=== PATIENT | female | born 1950 | race Caucasian/White ===

== ENCOUNTER 2017-11-16 10:50 | Outpatient (CLI) | payer MEDICARE | END 2017-11-16 10:51 | disposition home or self-care (01) | LOC: BICRAD 10:50 | PROVIDERS: ATTEND Internal Medicine Rheumatology | DX: M79.672 Pain in left foot (principal) ==

== ENCOUNTER 2017-12-18 10:49 | Outpatient (CLI) | payer MEDICARE | END 2017-12-18 10:50 | disposition home or self-care (01) | LOC: BICMAMMO 10:49 | PROVIDERS: ATTEND Obstetrics & Gynecology | DX: Z12.31 Encounter for screening mammogram for malignant neoplasm of breast (principal); R92.1 Mammographic calcification found on diagnostic imaging of breast | CPT/HCPCS: 77063; 77067 ==

== ENCOUNTER 2019-01-02 09:39 | Emergency (ER) | payer MEDICARE ==
[2019-01-02] MEDS ORDERED: Ondansetron PF 4 MG/2 ML Vial ONE (10:38)
[2019-01-02 10:59] LABS: #Eosinphils 0.1 thou/uL (0.0-0.7); #Lymphocytes 0.7 thou/uL (1.20-3.40); #Monocytes 0.3 thou/uL (0.11-0.59); #Neutrophils 2.1 thou/uL (1.40-6.50); %Basophils 0.7 % (0.0-1.0); %Eosinophils 2.5 % (0.0-10.0); %Lymphocytes 21.4 % (21.0-51.0); %Monocytes 9.9 % (0.0-10.0); %Neutrophils 65.5 % (42.0-75.0); Hemoglobin 12.1 g/dL (12.0-16.0); Mean Corpuscular HGB CONC 34.1 g/dL (32.0-36.0); Mean Platelet Volume 7.8 fL (7.4-10.4); Platelet Count 81 thou/uL (130-400); Red Blood Cell (RBC) Count 3.44 mill/uL (4.20-5.40); White Blood Cell (WBC) Count 3.3 thou/uL (4.8-10.8)
[2019-01-02 11:04] LABS: ALT (SGPT) 186 U/L (8-55); AST (SGOT) 377 U/L (5-34); Acetaminophen Less than 6.0 mcg/mL (10.0-30.0); Albumin 3.9 g/dL (3.4-4.8); Alcohol 77 mg/dL (Less than 10); Alkaline Phosphatase 157 U/L (40-150); Anion Gap 18 mmol/L (10-20); BUN (Urea Nitrogen) 9 mg/dL (9.8-20.1); Bilirubin, Total 0.9 mg/dL (0.2-1.2); Calc. Creatinine Clearance 0 mL/min (70-130); Calcium 9.3 mg/dL (7.8-10.44); Carbon Dioxide 24 mmol/L (23-31); Chloride 96 mmol/L (98-107); Estimated GFR-MDRD 56; Globulin 3.3 g/dL (2.4-3.5); Glucose 117 mg/dL (80-115); Potassium 3.9 mmol/L (3.5-5.1); Protein, Total 7.2 g/dL (6.0-8.3); Salicylate Less than 8.0 mg/dL (15.0-30.0); Sodium 134 mmol/L (136-145)
[2019-01-02 11:53] LABS: Bilirubin Negative (Negative); Blood, Urine Small (Negative); Clarity CLOUDY (Clear); Glucose, Urine (Dipstick) Negative (Negative); Leukocyte Large (Negative); Nitrite Positive (Negative); Protein, Urine (Dipstick) Trace mg/dL (Neg-Trace); Specific Gravity, Urine 1.014 (1.002-1.036); Urobilinogen 0.2 mg/dL (0.2-1.0); pH, Urine 5.5 (5.0-9.0)
[2019-01-02 11:56] LABS: Bacteria/HPF 2+ HPF (None Seen); Squamous Epithelial 0-3 HPF (0-3)
[2019-01-02 12:04] LABS: Pathc Cast-AUWi Flag 3.12 (0-2.49)
[2019-01-02 12:12] LABS: Hyaline Casts/LPF 0-3 HYALINE CAST LPF (0-3 Hyaline); RBC/HPF 0-3 HPF (0-3); Yeast-All Forms Rare HPF (None Seen)
[2019-01-02] MEDS ORDERED: cefTRIAXone\\ROCEPHIN 1 GM VIAL ONE (12:30)
--- NOTE | 2019-01-04 21:37 | EKG ---
Test Reason : Blood Pressure : / mmHG Vent. Rate : 078 BPM Atrial Rate : 078 BPM P-R Int : 178 ms QRS Dur : 072 ms QT Int : 384 ms P-R-T Axes : 054 -11 004 degrees QTc Int : 437 ms Normal sinus rhythm T wave abnormality, consider anterior ischemia T wave inversion V1-V3 Abnormal ECG Confirmed by JOSHUA HOU ([id number]), slot editor KRISHNA OBRIEN ([id number]) on 01/04/2019 9:37:06 PM Referred By: Confirmed By:JOSHUA HOU
== END 2019-01-02 13:25 | disposition home or self-care (01) ==
LOC: ERS 09:39
DX: R11.2 Nausea with vomiting, unspecified (principal); R53.1 Weakness; N39.0 Urinary tract infection, site not specified; I10 Essential (primary) hypertension; F32.9 Major depressive disorder, single episode, unspecified; Z79.899 Other long term (current) drug therapy; Z79.82 Long term (current) use of aspirin
CPT/HCPCS: 36415; 80053; 80307; 81003; 81015; 83880; 84484; 85025; 87077; 87086; 87186; 93005; 96361; 96365; 96375; J0696; J2405

== ENCOUNTER 2019-01-12 09:19 | Emergency (ER) | payer MEDICARE ==
[2019-01-12 10:08] LABS: Hemoglobin 11.3 g/dL (12.0-16.0); Mean Corpuscular HGB CONC 33.3 g/dL (32.0-36.0); Mean Platelet Volume 7.7 fL (7.4-10.4); Platelet Count 164 thou/uL (130-400); RBC Distribution Width 12.6 % (11.5-14.5); Red Blood Cell (RBC) Count 3.22 mill/uL (4.20-5.40); White Blood Cell (WBC) Count 2.8 thou/uL (4.8-10.8)
[2019-01-12 10:25] LABS: ALT (SGPT) 140 U/L (8-55); AST (SGOT) 271 U/L (5-34); Acetaminophen Less than 6.0 mcg/mL (10.0-30.0); Albumin 3.7 g/dL (3.4-4.8); Alcohol Less than 10 mg/dL (Less than 10); Alkaline Phosphatase 147 U/L (40-150); Anion Gap 16 mmol/L (10-20); BUN (Urea Nitrogen) 5 mg/dL (9.8-20.1); Bilirubin, Total 0.8 mg/dL (0.2-1.2); CK (CPK) 52 U/L (29-168); Calc. Creatinine Clearance 0 mL/min (70-130); Calcium 9.2 mg/dL (7.8-10.44); Carbon Dioxide 27 mmol/L (23-31); Chloride 98 mmol/L (98-107); Estimated GFR-MDRD 51; Glucose 115 mg/dL (80-115); Potassium 4.7 mmol/L (3.5-5.1); Protein, Total 6.7 g/dL (6.0-8.3); Salicylate Less than 8.0 mg/dL (15.0-30.0); Sodium 136 mmol/L (136-145)
[2019-01-12] MEDS ORDERED: Ondansetron ODT 4 MG TAB ONE (10:27)
[2019-01-12 10:41] LABS: Band 5 % (5-11); Eosinophils 10 % (0-10); Lymphocytes 36 % (21-51); MDiff Complete? YES; Macrocytosis SLIGHT = 6-15 cells (100X) (0-5/hpf); Monocytes 7 % (0-10); Neutrophil 34 % (42-75); Nucleated RBC 1 % (0); Platelet Morphology Comment Appears Adequate; Polychromasia SLIGHT = 2-3 cells (100X) (0-2/hpf); Reactive Lymphocytes 6 % (0-10)
[2019-01-12 11:51] LABS: Bilirubin Negative (Negative); Blood, Urine Large (Negative); Glucose, Urine (Dipstick) Negative (Negative); Leukocyte Moderate (Negative); Nitrite Negative (Negative); Protein, Urine (Dipstick) Negative (Neg-Trace); Specific Gravity, Urine 1.015 (1.005-1.030); Urobilinogen 0.2 mg/dL (0.2-1.0)
[2019-01-12 11:54] LABS: Clarity Cloudy (Clear)
[2019-01-12 12:00] LABS: Amphetamine Not Detected (NotDetected); Barbiturates Screen Not Detected (NotDetected); Benzodiazepine Screen Not Detected (NotDetected); Cocaine Metabolite Screen Not Detected (NotDetected); Medtox Control Line Valid? VALID (VALID); Medtox Reader # READER 4; Methadone Not Detected (NotDetected); Methamphetamine Not Detected (NotDetected); Opiate Screen Not Detected (NotDetected); Oxycodone Screen Not Detected (NotDetected); Phencyclidine (PCP) Not Detected (NotDetected); THC/Cannabinoid Screen Not Detected (NotDetected); Tricyclic Screen Not Detected (NotDetected)
[2019-01-12 12:06] LABS: Bacteria/HPF 2+ HPF (None Seen); Transitional Epithelial 0-3 HPF (0-3); Yeast-All Forms None Seen HPF (None Seen)
--- NOTE | 2019-01-12 13:04 | CT ---
FCT abdomen noncontrast CT pelvis noncontrast: (Urolithiasis protocol) DATE: 01/12/2019 HISTORY: 68-year-old female with hematuria, nausea, vomiting, UTI and diarrhea, with dysuria. COMPARISON: None available TECHNIQUE: IV injection of iodinated contrast media: None Oral contrast media: None FINDINGS: Other than for urolithiasis, the lack of IV and oral contrast limits the evaluation. The liver is diffusely very low in attenuation representing fatty liver. Liver is enlarged. No abdomi nal aortic aneurysm. Within the limitations of a noncontrast scan, no major pathology identified invo lving pancreas, adrenals, spleen, left kidney. Right total hip replacement arthroplasty metallic hard carrillo causes streak artifact, obscuring portions of the intrapelvic contents, including some of the bl adder. No mural thickening of the urinary bladder identified. No calculus identified in the kidneys, ureters, or urinary bladder, although small calculi could be missed in the pelvis due to the streak a rtifact. No hydronephrosis. 2 cm round exophytic mass protruding from upper pole cortex of right kidn ey with density of 8 Hounsfield units, representing cyst. No small bowel dilation. Appendix not ident ified. No signs of colonic diverticulitis. No pneumoperitoneum or ascites. Suture lines and calcifica tion at the vaginal cuff. IMPRESSION: 1) no urolithiasis or obstructive uropathy. 2) mild hepatomegaly and severe hepatic steatosis. 3) status post total right hip replacement arthroplasty. 4) status post hysterectomy.
--- NOTE | 2019-01-18 15:29 | EKG ---
Test Reason : N/V Blood Pressure : / mmHG Vent. Rate : 080 BPM Atrial Rate : 080 BPM P-R Int : 192 ms QRS Dur : 066 ms QT Int : 380 ms P-R-T Axes : 049 -11 010 degrees QTc Int : 438 ms Normal sinus rhythm Minimal voltage criteria for LVH, may be normal variant T wave inversions V1-V3 seen on old EKG of 01/02/2019 Confirmed by LARRY SELF ([id number]), associate entertainment editor ROSA DASILVA ([id number]) on 01/18/2019 3:29:02 PM Referred By: CLAIR Confirmed By:LARRY SELF
== END 2019-01-12 13:26 | disposition home or self-care (01) ==
LOC: ERS 09:19
DX: N39.0 Urinary tract infection, site not specified (principal); I10 Essential (primary) hypertension; F32.9 Major depressive disorder, single episode, unspecified; Z79.899 Other long term (current) drug therapy; Z79.82 Long term (current) use of aspirin
CPT/HCPCS: 36415; 74176; 80053; 80306; 80307; 81003; 81015; 82550; 83605; 84484; 85025; 87077; 87086; 87186; 93005; 96360; Q0162

== ENCOUNTER 2019-03-19 09:46 | Outpatient (CLI) | payer MEDICARE ==
--- NOTE | 2019-03-19 10:15 | MMO ---
Bilateral MAMMO Bilat Screen [facility]. CLINICAL HISTORY: Patient is 68 years old and is seen for screening. The patient has no family history of breast cancer. The patient has no personal history of cancer. VIEWS: The views performed were: bilateral craniocaudal with tomosynthesis and bilateral mediolateral oblique with tomosynthesis. FILMS COMPARED: The present examination has been compared to prior imaging studies performed at [facility] on 12/18/2017, at [facility] on 05/31/2015, and at [facility] on 06/21/2012 and 07/07/2013. MAMMOGRAM FINDINGS: There are scattered fibroglandular densities. There are vascular calcifications seen in both breasts. There are no suspicious masses, suspicious calcifications, or new areas of architectural distortion. IMPRESSION: A ROUTINE FOLLOW-UP MAMMOGRAM IN 1 YEAR IS RECOMMENDED. THE RESULTS OF THIS EXAM WERE SENT TO THE PATIENT. ACR BI-RADS Category 2 - Benign finding MAMMOGRAPHY NOTE: 1. A negative mammogram report should not delay a biopsy if a dominant of clinically suspicious mass is present. 2. Approximately 10% to 15% of breast cancers are not detected by mammography. 3. Adenosis and dense breasts may obscure an underlying neoplasm.
== END 2019-03-19 09:47 | disposition home or self-care (01) ==
LOC: BICMAMMO 09:46
PROVIDERS: ATTEND Family Medicine
DX: Z12.31 Encounter for screening mammogram for malignant neoplasm of breast (principal)
CPT/HCPCS: 77063; 77067

== ENCOUNTER 2020-02-02 10:17 | Inpatient (IN) | payer MEDICARE ==
[~2020-02-02 10:17] MED LIST: Iopamidol-370 76% 500 ML 1 ML ONE
[2020-02-02 11:06] LABS: #Eosinphils 0.1 thou/uL (0.0-0.7); #Lymphocytes 1.4 thou/uL (1.20-3.40); #Monocytes 0.9 thou/uL (0.11-0.59); #Neutrophils 13.6 thou/uL (1.40-6.50); %Basophils 0.3 % (0.0-1.0); %Eosinophils 0.7 % (0.0-10.0); %Lymphocytes 8.6 % (21.0-51.0); %Monocytes 5.6 % (0.0-10.0); %Neutrophils 84.8 % (42.0-75.0); Hemoglobin 11.2 g/dL (12.0-16.0); Mean Corpuscular HGB CONC 32.2 g/dL (32.0-36.0); Mean Corpuscular Hemoglobin 35.1 pg (27.0-31.0); Mean Platelet Volume 9.1 fL (7.4-10.4); Platelet Count 258 thou/uL (130-400); RBC Distribution Width 14.7 % (11.5-14.5)
--- NOTE | 2020-02-02 11:06 | RAD ---
Exam: Chest one view HISTORY:Potential. Weakness. Comparison: 04/23/2018 FINDINGS: Cardiac silhouette: Normal Aorta: Unremarkable Pulmonary vessels: Normal Costophrenic angles: Clear LUNGS: Diminished lung volumes, likely due to a poor inspiratory effort. Partial opacification of the right hemidiaphragm. Right lower lobe atelectasis or infiltrate cannot be entirely excluded. Pneumothorax: None Osseous abnormalities: None IMPRESSION: 1. Diminished lung volumes, likely due to a poor inspiratory effort. Partial obscuration of the right hemidiaphragm due to atelectasis or infiltrate.
[2020-02-02 11:30] LABS: ALT (SGPT) 34 U/L (8-55); AST (SGOT) 165 U/L (5-34); Albumin 3.3 g/dL (3.4-4.8); Alkaline Phosphatase 191 U/L (40-110); Anion Gap 16 mmol/L (10-20); BUN (Urea Nitrogen) 32 mg/dL (9.8-20.1); Bilirubin, Total 6.7 mg/dL (0.2-1.2); CK (CPK) 22 U/L (29-168); Calc. Creatinine Clearance 0 mL/min (70-130); Calcium 9.1 mg/dL (7.8-10.44); Carbon Dioxide 26 mmol/L (23-31); Chloride 96 mmol/L (98-107); Estimated GFR-MDRD 36; Globulin 3.2 g/dL (2.4-3.5); Glucose 135 mg/dL (80-115); Lipase 48 U/L (8-78); Potassium 3.7 mmol/L (3.5-5.1); Protein, Total 6.5 g/dL (6.0-8.3); Sodium 134 mmol/L (136-145)
[2020-02-02 12:32] LABS: Bilirubin 1+ (Negative); Blood, Urine Negative (Negative); Clarity Clear (Clear); Glucose, Urine (Dipstick) Normal (Negative); Leukocyte Negative Leu/uL (Negative); Nitrite Negative (Negative); Protein, Urine (Dipstick) 10 mg/dL (Neg-Trace)
[2020-02-02 13:56] LABS: Lactic Acid 1.4 mmol/L (0.5-2.2)
[2020-02-02] MEDS ORDERED: Multivitamins, Adult 10 ML, Thiamine HCl 100 MG, Folic Acid 1 MG in Dextrose 5 %-0.45 %... IV ONE (16:00)
[2020-02-02] MEDS ORDERED: Docusate 100 MG CAP PO PRN (16:09)
[2020-02-02] MEDS ORDERED: Guaifenesin DM 100-10/5 ML UDCUP PO PRN (16:09)
[2020-02-02] MEDS ORDERED: Senokot S 8.6-50 MG TAB PO PRN (16:09)
[2020-02-02] MEDS ORDERED: Ondansetron PF 4 MG/2 ML Vial IVP PRN (16:09)
[2020-02-02] MEDS ORDERED: Bisacodyl 10 MG SUPP PR PRN (16:09)
--- NOTE | 2020-02-02 16:40 | CT ---
CT BRAIN WITHOUT CONTRAST: History: Altered mental status, weakness. Comparison: None FINDINGS: There are changes of cortical atrophy and chronic small vessel disease. The ventricular size is appro priate and the basilar cisterns patent. No evidence of acute infarct, hemorrhage, midline shift, or extraaxial fluid collections seen. The radha ny calvarium is intact. There is mucosal disease in the paranasal sinuses. IMPRESSION: No CT evidence of acute intracranial process. POS: [facility]
--- NOTE | 2020-02-02 17:12 | CT ---
CT ABDOMEN AND PELVIS WITH IV CONTRAST: Date: 02-02-2020 Provided Clinical History: Weakness, urinary tract infection. FINDINGS: Comparison 01-12-2019. There is partially visualized right pleural fluid, small in degree. Diffuse fatty infiltration of the liver with sparring. Simple appearing right renal cysts. The solid abdominal organs demonstrate an otherwise unremarkable CT appearance. There is a small amount of free fluid present within the left pericolic gutter, which appears simple. There is no inflammatory fat stranding, bowel obstruction, or free intraperitoneal air apparent. The regional major vascular structures appear unremarkable with the exception of occasional vascular calcification. Evaluate of the pelvis is limited due to beam hardening artifact related to changes of right hip arth roplasty. The osseous structures demonstrate no concerning lytic or blastic lesions. IMPRESSION: 1. Small amount of free intraperitoneal fluid in the left pericolic gutter. The etiology and signific ance of which are uncertain. 2. Small amount of right pleural fluid. 3. Prominent fatty infiltration of the liver. POS: N[facility]
[2020-02-02 17:28] VITALS: BMI 22.1
[2020-02-02 17:30] LABS: Acetaminophen Less than 6.0 mcg/mL (10.0-30.0); Alcohol Less than 10 mg/dL (Less than 10); Iron 50 ug/dL (50-170); Iron Binding Capacity, Total 111 mcg/dL (265-497); Salicylate Less than 8.0 mg/dL (15.0-30.0)
--- NOTE | 2020-02-02 17:45 | HP ---
REASON FOR ADMISSION: Painless jaundice, generalized weakness, weight loss. HISTORY OF PRESENTING ILLNESS: The patient gives history of feeling progressively weak from last 3 weeks. She says she has been losing strength and it is very hard for her to get out of bed. This got worse to the point that she could not get up and brush this morning. Finally, she called EMS and was transported here to ER. No abdominal pain or nausea. Last bowel movement was yesterday morning which was semi-solid. No diarrhea as such. No complaints of fever, cough, or expectoration. No exposure to coronavirus. The patient does not recall having started any new medications. PAST MEDICAL AND SURGICAL HISTORY: History of hypertension, dyslipidemia, hypothyroidism, osteoporosis, vitamin D deficiency, prior history of alcohol abuse with rehabilitation done in the past, bladder sling surgery, hysterectomy with bilateral salpingo-oophorectomy, right knee surgery, left shoulder replacement, hip replacement, GERD, history of frequent UTI, history of CHF with diastolic dysfunction, depression, prior colonoscopy. CURRENT MEDICATIONS: Please note, the patient does not recall any of her medications. Per prior records, the patient is on; 1. Levothyroxine 75 mcg p.o. daily. 2. Omeprazole 40 mg p.o. daily. 3. Lisinopril 5 mg p.o. daily. 4. Folic acid 1 mg p.o. daily. 5. Vitamin D3 of 5000 units p.o. daily. 6. Folic acid 1 mg daily. 7. Aspirin 81 mg p.o. daily. 8. Mirtazapine 15 mg p.o. daily. 9. Singulair 10 mg p.o. daily. 10. Carvedilol 12.5 mg twice daily. ALLERGIES: NO KNOWN DRUG ALLERGIES. PERSONAL HISTORY: The patient states she quit drinking alcohol. Last drink was at [place] last year. Does not abuse drugs or smoke. She is currently a resident of [facility]. FAMILY HISTORY: Mother at the age of 89. She had an [place]. Father of natural causes in his 80s. CODE STATUS: Full. Power of collections attorney is her daughter, Ms. Sewell. REVIEW OF SYSTEMS: CONSTITUTIONAL: Negative for weight loss or gain, ability to conduct usual activities. SKIN: Negative for rash, itching. EYES: Negative for double vision, pain. ENT/MOUTH: Negative for nose bleeding, neck stiffness, pain, tenderness. CARDIOVASCULAR: Negative for palpitations, dyspnea on exertion, orthopnea. RESPIRATORY: Negative for shortness of breath, wheezing, cough, hemoptysis, fever or night sweats. GASTROINTESTINAL: Negative for poor appetite, abdominal pain, heartburn, nausea, vomiting, constipation, or diarrhea. GENITOURINARY: Negative for urgency, frequency, dysuria, nocturia. MUSCULOSKELETAL: Negative for pain, swelling. NEUROLOGIC/PSYCHIATRIC: Negative for anxiety, depression. ALLERGY/IMMUNOLOGIC: Negative for skin rash, bleeding tendency. PHYSICAL EXAMINATION: GENERAL: The patient is a 69-year-old female, who is currently not in any acute distress. VITAL SIGNS: Blood pressure 116/66, pulse 64 per minute, respiratory rate 18 per minute, temperature 97.7 degrees Fahrenheit, saturating 100% on room air. NECK: Supple. No elevated JVD. HEENT: Eyes; extraocular muscles intact. Pupils reacting to light. Oral cavity, mucous membranes are dry. No exudates or congestion. CARDIOVASCULAR SYSTEM: S1-S2 heard. Regular rhythm. RESPIRATORY SYSTEM: Air entry 1+ bilateral. No rales or rhonchi. ABDOMEN: Soft. Bowel sounds heard. No tenderness, rigidity, or guarding. EXTREMITIES: No peripheral edema or calf tenderness. VASCULAR SYSTEM: Peripheral pulses 1+ bilateral. No ischemic ulcerations or gangrene. CENTRAL NERVOUS SYSTEM: No gross focal deficits noted. The patient is alert and awake, but is not fully oriented. PSYCHIATRIC SYSTEM: No obvious hallucinations or delusions. LABORATORY DATA AND IMAGING STUDIES: Chest x-ray done shows partial obscuration of right hemidiaphragm. No acute changes seen. CT brain, official results are pending. White count of 16, H and H 11 and 34, platelet count 258, MCV is 109 with 84% neutrophils. BUN 32, creatinine 1.4, serum bicarb 26, serum glucose 135, total bilirubin is 6.7. AST 165, ALT 34, alkaline phosphatase 191. BNP 362. Albumin is 3.3. Lipase is 48. EKG done shows sinus rhythm at 63 beats per minute. There is T-wave inversion seen in V1 and V2. Poor R-wave progression is seen in the lateral leads. CLINICAL IMPRESSION AND PLAN: The patient will be admitted to medical floor for painless jaundice with progressive weakness. A CT of the abdomen and pelvis with and without contrast will be obtained. She will be gently hydrated with normal saline at 180 mL/hour. We will continue aspirin, Coreg, Synthroid, lisinopril, Singulair, Protonix, and trazodone as before. The patient has been on sulfasalazine in the past and it is unclear. We will obtain GI consultation with Dr. Goldberg, who is on-call and likely her GI specialist. We will obtain a liver panel in the morning to see comparison. She had normal total bilirubin in the past per prior medical records on [facility]. She has had prior colonoscopies done, the last one had a tubular adenoma. Job ID: [id number]
[2020-02-02 17:49] LABS: CEA, Serum 5.52 ng/mL (< or = 5.0)
[2020-02-02 17:51] LABS: HBCM Index 0.07 S/CO (0-0.79); HBSAg Index 0.25 S/CO (0-0.99); Hep A IgM AB Non-Reactive (NonReactive); Hep A IgM S/CO 0.12 S/CO (0-0.79); Hep B Surf Ag Non-Reactive S/CO (NonReactive); Hep C IgG Ab Non-Reactive (NonReactive); Hepatitis B Core IgM Abs Non-Reactive (NonReactive)
[2020-02-02 18:30] LABS: Ferritin 3437.06 ng/mL (10-291)
[2020-02-02 18:52] LABS: Iron 51 ug/dL (50-170); Iron Binding Capacity, Total 110 mcg/dL (265-497)
[2020-02-02] MEDS: Sodium Chloride 0.9% 1,000 ML IV SCH (19:06)
[2020-02-02] MEDS: Carvedilol 25 MG TAB PO SCH (20:08)
[2020-02-02] MEDS: Montelukast Sodium 10 mg Tablet PO SCH (20:09)
[2020-02-02] MEDS: traZODone HCl 50 MG TAB PO SCH (20:09)
--- NOTE | 2020-02-02 20:11 | CON ---
DATE OF CONSULTATION: 02/02/2020 REASON FOR CONSULTATION: Abnormal LFTs. CONSULTING PROVIDER: Jan Alonso MD HISTORY OF PRESENT ILLNESS: The patient is a 69-year-old female with past medical history of hypertension, hyperlipidemia, hypothyroidism, congestive heart failure, depression, recurrent urinary tract infections (with recent treatment), and adenomatous polyps of the colon, presenting with complaints of weakness and recent falls. She states that since 11/2019 she had been having frequent urinary tract infections, requiring multiple bouts of antibiotics in order to treat these particular infection. However, since then, she has been noticing progressively worsening weakening during that time, especially over the last 3 weeks. With this increased weakness, she characterized that as difficulty getting out of bed, rising from a sitting position to a standing position and even fell this morning. With the incidence of the fall this morning, she fell, but was unable to rise to a sitting or standing position and eventually called for help, although it is unclear how long she was down for with this fall this morning and then prompted EMS to take the patient to [facility] for further evaluation. While in the hospital, she was noted to have significantly elevated LFTs in addition to scleral icterus concerning for liver dysfunction and is currently undergoing evaluation. On further questioning the patient, she also states that she has been having decreased appetite over the last 2 to 3 months as well, but denies any significant weight loss (although the patient cannot quantify with lack of a scale at home). She also complains of diarrhea, but upon further questioning, states that she has approximately one semi-solid bowel movement every other day, that is Mohave 4 in terms of consistency with no difficulty with defecation. Her current diet is fairly fiber poor with her current diet consisting primarily of meza, cereal, biscuits, and milk. She currently denies any nausea, vomiting, fevers, chills, hematemesis, hematochezia, melena, abdominal pain, dysphagia, odynophagia, early satiety, or constipation. Of note, the patient states that her last episode of alcohol consumption was around New Year's of this year. She also states that she stops taking sulfasalazine approximately 1 month ago per her public service representative's recommendations. However, she was recently treated for urinary tract infection with nitrofurantoin. REVIEW OF SYSTEMS: A 10-category review of systems was obtained with all responses negative except for the pertinent positives as listed in HPI. PAST MEDICAL HISTORY: As per HPI. PAST SURGICAL HISTORY: 1. Right knee surgery. 2. Left shoulder replacement. 3. Right hip arthroplasty. FAMILY HISTORY: Denies any GI malignancies. SOCIAL HISTORY: Denies any tobacco, alcohol, or illicit drug use. Last consumption of alcohol was in 09/2019. OUTPATIENT MEDICATIONS: Reviewed. ALLERGIES: NO KNOWN DRUG ALLERGIES. PHYSICAL EXAMINATION: VITAL SIGNS: Temperature 98, pulse 63, blood pressure 94/60, respiratory rate 18, and saturating 98% on room air. GENERAL: The patient was lying in bed, in no acute distress. Alert and oriented x4. HEENT: Normocephalic and atraumatic. NECK: Supple. No JVD noted. Positive scleral icterus. CARDIOVASCULAR: Regular rate and rhythm with no discernable murmurs, gallops, or rubs. RESPIRATORY: Clear to auscultation bilaterally with no discernable wheezes or rales, although poor inspiratory effort. ABDOMEN: Normoactive bowel sounds. Soft, nontender, and nondistended. EXTREMITIES: No cyanosis, clubbing, or edema. [id number] cachectic limbs noted. LABORATORY DATA: CBC with a white blood cell count of 16, hemoglobin 11.2, hematocrit 34.9, and platelets 258. Chemistry with a sodium of 134, potassium 3.7, chloride 96, CO2 of 26, BUN 32, creatinine 1.45, and glucose 135. AST 165, ALT 34, alkaline phosphatase 191, total bilirubin 6.7, and albumin 3.3. BNP 362, lipase 48, and ammonia 23. MCV on her CBC was 109 with an RDW of 14.7. Liver indices obtained on 01/20/2020 showed an iron of 139, ferritin of 5071, and a TIBC of 131. IMAGING DATA: Chest x-ray was obtained on 02/02/2020, which showed diminished lung volumes, consistent with poor inspiratory effort. However, there was partial opacification of the right hemidiaphragm, concerning for possible atelectasis versus an infiltrate. CT of the brain was obtained on 02/02/2020, which showed no evidence of acute intracranial process. CT of the abdomen and pelvis was also obtained on 02/02/2020, which showed a partially visualized right pleural fluid, which was small in terms of volume, diffuse fatty infiltration of the liver with sparing was also seen, but no mention of any discrete liver masses. There was a small amount of free fluid present within the left pericolic gutter, but no evidence of inflammatory, fat stranding, bowel obstruction, or free intraperitoneal air. Right hip artifact changes related to a right hip arthroplasty made it difficult to evaluate the pelvis. ASSESSMENT AND PLAN: The patient is a 69-year-old female with past medical history of hypertension, hyperlipidemia, hypothyroidism, congestive heart failure, recurrent urinary tract infections, depression, and adenomatous polyps of the colon, presenting with global/generalized weakness, recent frequent urinary tract infection status post treatment, and elevated liver function tests on this admission. Abnormal liver function tests: The patient is presenting with a recent history of recurrent urinary tract infections, for which she has been treated with multiple antibiotic regimens. Most recently, the patient was placed on nitrofurantoin for urinary tract infection and was close to completion of this antibiotic course. The patient was also noted to have taken sulfasalazine on a chronic/long-term basis related primarily to osteoarthritis and was prescribed by her public service representative, although this medication was discontinued approximately 1 month ago. At this time, evaluation of her liver function tests reveal primarily a cholestatic-type pattern as evidenced by her significantly elevated bilirubin and modestly elevated alkaline phosphatase when compared to AST and ALT, and why her BNP is elevated, congestive hepatopathy is less likely to be manifesting itself with this pattern of abnormal liver function tests. Recent iron indices also showed that the patient had a mildly low iron, but normal as well as a normal TIBC, indicative more of an anemia of chronic disease when related to her current hemoglobin and hematocrit. She did have a ferritin of over 5000, which could be an acute phase reactant in this clinical picture related to a possible infection. Current differential could include an infectious etiology (bacterial versus viral), fatty infiltration of the liver (less likely to generate a significant hyperbilirubinemia), medication induced (especially with nitrofurantoin), alcohol ingestion, other underlying liver disease and/or gastrointestinal neoplasm (less likely given CT findings). RECOMMENDATIONS: 1. Would continue to trend her LFTs and INR daily to monitor liver function and resolution. 2. Agree with obtaining a drug of abuse screen including alcohol, which could potentially contribute to her current pattern. 3. We will follow up on serum AFP and CEA for possible evaluation of neoplastic process (although these are poor screening test for malignant neoplasm within the GI tract). 4. I would recommend a full liver workup given that she has had elevated LFTs in the past. 5. Would avoid any potentially hepatotoxic medications. 6. Agree with more conservative management with IV fluid administration. We will continue to follow. Please call with any questions. Job ID: [id number]
[2020-02-02] MEDS ORDERED: Mirtazapine 30 MG TAB PO SCH (21:00)
[2020-02-03] MEDS: Sodium Chloride 0.9% 1,000 ML IV SCH ×2 (04:00→17:22)
[2020-02-03 05:27] LABS: #Basophils 0.1 thou/uL (0.0-0.2); #Eosinphils 0.2 thou/uL (0.0-0.7); #Lymphocytes 1.6 thou/uL (1.20-3.40); #Monocytes 0.9 thou/uL (0.11-0.59); #Neutrophils 10.6 thou/uL (1.40-6.50); %Basophils 0.4 % (0.0-1.0); %Eosinophils 1.2 % (0.0-10.0); %Lymphocytes 11.7 % (21.0-51.0); %Monocytes 6.6 % (0.0-10.0); %Neutrophils 80.1 % (42.0-75.0); Hemoglobin 9.3 g/dL (12.0-16.0); Mean Corpuscular HGB CONC 31.9 g/dL (32.0-36.0); Mean Corpuscular Hemoglobin 34.3 pg (27.0-31.0); Mean Platelet Volume 8.4 fL (7.4-10.4); Platelet Count 212 thou/uL (130-400); RBC Distribution Width 14.5 % (11.5-14.5); Red Blood Cell (RBC) Count 2.71 mill/uL (4.20-5.40); White Blood Cell (WBC) Count 13.2 thou/uL (4.8-10.8)
[2020-02-03 05:50] LABS: ALT (SGPT) 28 U/L (8-55); AST (SGOT) 129 U/L (5-34); Albumin 2.6 g/dL (3.4-4.8); Alkaline Phosphatase 158 U/L (40-110); Anion Gap 11 mmol/L (10-20); BUN (Urea Nitrogen) 24 mg/dL (9.8-20.1); Calc. Creatinine Clearance 45 mL/min (70-130); Calcium 8.2 mg/dL (7.8-10.44); Carbon Dioxide 25 mmol/L (23-31); Chloride 100 mmol/L (98-107); Estimated GFR-MDRD 47; Glucose 93 mg/dL (80-115); Potassium 3.3 mmol/L (3.5-5.1); Protein, Total 5.6 g/dL (6.0-8.3); Sodium 133 mmol/L (136-145)
[2020-02-03] MEDS ORDERED: Levothyroxine Sodium 88 MCG TAB PO SCH (06:00)
[2020-02-03 06:09] LABS: Free T4 (Free Thyroxine) 0.46 ng/dL (0.70-1.48); Thyroid Stimulating Hormone 49.3064 uIU/mL (0.35-4.94)
[2020-02-03 07:58] LABS: Amphetamine Not Detected (NotDetected); Barbiturates Screen Not Detected (NotDetected); Benzodiazepine Screen Not Detected (NotDetected); Cocaine Metabolite Screen Not Detected (NotDetected); Medtox Control Line Valid? VALID (VALID); Medtox Reader # READER 4; Methadone Not Detected (NotDetected); Methamphetamine Not Detected (NotDetected); Opiate Screen Not Detected (NotDetected); Oxycodone Screen Not Detected (NotDetected); Phencyclidine (PCP) Not Detected (NotDetected); THC/Cannabinoid Screen Not Detected (NotDetected); Tricyclic Screen Not Detected (NotDetected)
[2020-02-03] MEDS: Aspirin 81 mg Enteric Coated Tablet PO SCH (08:42)
[2020-02-03] MEDS: Cyanocobalamin (Vitamin B-12) 1,000 MCG TAB PO SCH (08:42)
[2020-02-03] MEDS: Estradiol 1 MG TAB PO SCH (08:43)
[2020-02-03] MEDS: Multivit, Therapeutic 1 TAB PO SCH (08:43)
[2020-02-03] MEDS: Folic Acid 1 MG TAB PO SCH (08:43)
[2020-02-03] MEDS: Enoxaparin Sodium 40 MG/0.4 ML SYRINGE SC SCH (08:43)
[2020-02-03] MEDS: Carvedilol 25 MG TAB PO SCH (08:47)
[2020-02-03] MEDS ORDERED: Lisinopril 5 MG TAB PO SCH (09:00)
[2020-02-03] MEDS ORDERED: Sodium Chloride 0.9% 500 ML IVPB SCH (10:00)
--- NOTE | 2020-02-03 12:10 | PDOC.HOSPP ---
- Subjective Encounter Date: 02/03/20 Encounter Time: 08:00 Subjective: no abd pain, itching or sob or dizziness had low BP this am, got 500ml bolus saline is eating well - Objective Vital Signs & Weight: Vital Signs (12 hours) Temp Pulse Resp BP Pulse Ox 02/03/20 11:02 97.7 F 62 18 84/53 L 96 02/03/20 08:00 94 L 02/03/20 07:58 98.0 F 74 16 100/55 L 94 L 02/03/20 04:00 98.4 F 71 20 97/61 95 Weight Weight 136 lb 12.8 oz I&O: 02/02/20 02/03/20 02/04/20 06:59 06:59 06:59 Intake Total 1300 Balance 1300 Result Diagrams: 02/03/20 05:17 02/03/20 05:17 Hospitalist ROS - Medication Medications: Active Medications Generic Name Dose Route Start Last Admin Trade Name Freq PRN Reason Stop Dose Admin Aspirin 81 mg 02/03/20 09:00 02/03/20 08:42 Ecotrin PO 81 mg DAILY MICHAEL Administration Cyanocobalamin 2,500 mcg 02/03/20 09:00 02/03/20 08:42 Vitamin B-12 PO 2,500 mcg DAILY MICHAEL Administration Docusate Sodium 100 mg 02/02/20 16:09 02/02/20 20:09 Colace PO 100 mg BID PRN Administration Constipation Enoxaparin Sodium 40 mg 02/03/20 09:00 02/03/20 08:43 Lovenox SC 40 mg 0900 MICHAEL Administration Estradiol 1 mg 02/03/20 09:00 02/03/20 08:43 Estrace PO 1 mg DAILY MICHAEL Administration Folic Acid 1 mg 02/03/20 09:00 02/03/20 08:43 Folvite PO 1 mg DAILY MICHAEL Administration Sodium Chloride 1,000 mls @ 80 mls/hr 02/02/20 16:15 02/03/20 04:00 Normal Saline 0.9% IV 1,000 mls .[id number] MICHAEL Administration Montelukast Sodium 10 mg 02/02/20 21:00 02/02/20 20:09 Singulair PO 10 mg QPM MICHAEL Administration Multivitamins 1 tab 02/03/20 09:00 02/03/20 08:43 Theragran PO 1 tab DAILY MICHAEL Administration Pantoprazole Sodium 40 mg 02/03/20 09:00 02/03/20 08:43 Protonix PO 40 mg DAILY MICHAEL Administration Trazodone HCl 50 mg 02/02/20 21:00 02/02/20 20:09 Desyrel PO 50 mg HS MICHAEL Administration - Exam General Appearance: awake alert Eye: PERRL, scleral icterus ENT: no oropharyngeal lesions, moist mucosa Neck: supple, no JVD Heart: RRR, no murmur Respiratory: no wheezes, no rales Gastrointestinal: soft, non-tender, non-distended, normal bowel sounds Extremities: no cyanosis, no edema Neurological: cranial nerve grossly intact, no focal deficits Psychiatric: normal affect, A&O x 3 Hosp A/P (1) Jaundice Code(s): R17 - UNSPECIFIED JAUNDICE Status: Acute (2) Hypotension Status: Acute Qualifiers: Hypotension type: unspecified hypotension type Qualified Code(s): I95.9 - Hypotension, unspecified (3) FABRIZIO (acute kidney injury) Code(s): N17.9 - ACUTE KIDNEY FAILURE, UNSPECIFIED Status: Resolved (4) Dehydration Code(s): E86.0 - DEHYDRATION Status: Acute (5) Physical deconditioning Code(s): R53.81 - OTHER MALAISE Status: Acute (6) Hypertension Code(s): I10 - ESSENTIAL (PRIMARY) HYPERTENSION Status: Chronic Qualifiers: Hypertension type: essential hypertension Qualified Code(s): I10 - Essential (primary) hypertension (7) Hypothyroidism Code(s): E03.9 - HYPOTHYROIDISM, UNSPECIFIED Status: Chronic Qualifiers: Hypothyroidism type: unspecified Qualified Code(s): E03.9 - Hypothyroidism , unspecified - Plan increase synthroid to 112mcg/day, is known to be noncompliant on meds per family sbp usually runs around 98-110 going back to 2016 on VTM echo for ef and lv funtion blood cs x2 prelim is -ve, not on antibiotics renal function almost at baseline t.bili around 5mg PT to mobilize as tolerated, she got dizzy today due to low BP will f/u continue asp, low dose coreg, singulaire, iv fluids, trazodone and protonix
--- NOTE | 2020-02-03 12:29 | PRG ---
DATE OF SERVICE: 02/03/2020 SUBJECTIVE: The patient feels better this morning. She denies having any abdominal pain or pain elsewhere. She tolerated dinner well and breakfast well this morning without any nausea or vomiting. OBJECTIVE: VITAL SIGNS: Temperature is 97.7, blood pressure 84/53, pulse of 62. GENERAL: She is alert, frail, elderly woman, but in no distress. HEENT: Exam shows icteric sclerae bilaterally. Oropharynx is clear and moist. CV: Shows normal S1 and S2. Regular rate and rhythm. CHEST: Shows breath sounds. No rales or rhonchi. ABDOMEN: Soft. Mildly protuberant, but no distention or tympany. There is no palpable mass or organomegaly. She has active bowel sounds. EXTREMITIES: Exam shows no edema. LABORATORY DATA: Creatinine is 1.15, potassium 3.3. Globulin 33, bilirubin is 5.0, alkaline phosphatase 158, AST 129, ALT of 28. Serum ferritin 3437, serum iron 51, TIBC 110. Her folic acid is 17.2. Vitamin B12 is over 2000. Hemoglobin 9.3, MCV of 108. Hepatitis A, B, and C panel negative, and toxicology screen negative. ASSESSMENT: 1. Abnormal liver profile with elevation in bilirubin, AST, and alkaline phosphatase, all decreasing. CT scan showed only fatty infiltration of the liver without any focal lesion. The etiology is most likely from nitrofurantoin given for her urinary tract infection. Other liver workup is still pending. While hemolysis is unlikely, we will check haptoglobin given elevation of bilirubin and AST with normal ALT. 2. Macrocytic anemia. No evidence of iron deficiency component. Suspect from sulfasalazine for her arthritis that was discontinued last month. RECOMMENDATIONS: 1. We will check haptoglobin, although hemolysis appears to be unlikely. 2. No other GI tests at this point. We will continue to follow her LFT trend. 3. I anticipate that it will continue to normalize. Job ID: [id number]
[2020-02-03] MEDS: Carvedilol 3.125 MG TAB PO SCH (17:22)
[2020-02-03] MEDS: Montelukast Sodium 10 mg Tablet PO SCH (21:06)
[2020-02-03] MEDS: traZODone HCl 50 MG TAB PO SCH (21:06)
[2020-02-04] MEDS: Sodium Chloride 0.9% 1,000 ML IV SCH ×2 (06:02→18:33)
[2020-02-04] MEDS: Levothyroxine Sodium 112 MCG TAB PO SCH (06:02)
[2020-02-04 06:26] LABS: ALT (SGPT) 24 U/L (8-55); AST (SGOT) 116 U/L (5-34); Albumin 2.2 g/dL (3.4-4.8); Alkaline Phosphatase 130 U/L (40-110); Anion Gap 9 mmol/L (10-20); BUN (Urea Nitrogen) 18 mg/dL (9.8-20.1); Bilirubin, Total 3.4 mg/dL (0.2-1.2); Calc. Creatinine Clearance 53 mL/min (70-130); Calcium 7.9 mg/dL (7.8-10.44); Carbon Dioxide 24 mmol/L (23-31); Chloride 107 mmol/L (98-107); Estimated GFR-MDRD 57; Globulin 2.8 g/dL (2.4-3.5); Glucose 84 mg/dL (80-115); Potassium 3.3 mmol/L (3.5-5.1); Sodium 137 mmol/L (136-145)
[2020-02-04] MEDS: Cyanocobalamin (Vitamin B-12) 1,000 MCG TAB PO SCH (08:07)
[2020-02-04] MEDS: Folic Acid 1 MG TAB PO SCH (08:07)
[2020-02-04] MEDS: Carvedilol 3.125 MG TAB PO SCH ×2 (08:07→17:00)
[2020-02-04] MEDS: Aspirin 81 mg Enteric Coated Tablet PO SCH (08:07)
[2020-02-04] MEDS: Enoxaparin Sodium 40 MG/0.4 ML SYRINGE SC SCH (08:09)
[2020-02-04] MEDS: Multivit, Therapeutic 1 TAB PO SCH (08:10)
[2020-02-04] MEDS: Estradiol 1 MG TAB PO SCH (08:29)
--- NOTE | 2020-02-04 13:04 | PDOC.HOSPP ---
- Subjective Encounter Date: 02/04/20 Encounter Time: 11:15 Subjective: no abd pain or nausea feels better no sob or dizziness - Objective Vital Signs & Weight: Vital Signs (12 hours) Temp Pulse Resp BP Pulse Ox 02/04/20 11:48 98.1 F 63 16 97/61 96 02/04/20 08:00 94 L 02/04/20 04:00 98.7 F 67 20 94 L Weight Admit Weight 136 lb 12.8 oz Weight 136 lb 12.8 oz I&O: 02/03/20 02/04/20 02/05/20 06:59 06:59 06:59 Intake Total 1300 1880 Output Total 1 Balance 1300 1879 Result Diagrams: 02/03/20 05:17 02/04/20 05:52 Hospitalist ROS - Medication Medications: Active Medications Generic Name Dose Route Start Last Admin Trade Name Freq PRN Reason Stop Dose Admin Aspirin 81 mg 02/03/20 09:00 02/04/20 08:07 Ecotrin PO 81 mg DAILY MICHAEL Administration Carvedilol 3.125 mg 02/03/20 17:00 02/04/20 08:07 Coreg PO 3.125 mg BID-WM MICHAEL Administration Cyanocobalamin 2,500 mcg 02/03/20 09:00 02/04/20 08:07 Vitamin B-12 PO 2,500 mcg DAILY MICHAEL Administration Docusate Sodium 100 mg 02/02/20 16:09 02/02/20 20:09 Colace PO 100 mg BID PRN Administration Constipation Enoxaparin Sodium 40 mg 02/03/20 09:00 02/04/20 08:09 Lovenox SC 40 mg 0900 MICHAEL Administration Estradiol 1 mg 02/03/20 09:00 02/04/20 08:29 Estrace PO 1 mg DAILY MICHAEL Administration Folic Acid 1 mg 02/03/20 09:00 02/04/20 08:07 Folvite PO 1 mg DAILY MICHAEL Administration Sodium Chloride 1,000 mls @ 80 mls/hr 02/02/20 16:15 02/04/20 06:02 Normal Saline 0.9% IV 1,000 mls .[id number] MICHAEL Administration Levothyroxine Sodium 112 mcg 02/04/20 06:00 02/04/20 06:02 Synthroid PO 112 mcg 0600 MICHAEL Administration Montelukast Sodium 10 mg 02/02/20 21:00 02/03/20 21:06 Singulair PO 10 mg QPM MICHAEL Administration Multivitamins 1 tab 02/03/20 09:00 02/04/20 08:10 Theragran PO 1 tab DAILY MICHAEL Administration Pantoprazole Sodium 40 mg 02/03/20 09:00 02/04/20 08:09 Protonix PO 40 mg DAILY MICHAEL Administration Sodium Chloride 10 ml 02/03/20 21:00 02/04/20 09:20 Flush - Normal Saline IVF Not Given Q12HR MICHAEL Trazodone HCl 50 mg 02/02/20 21:00 02/03/20 21:06 Desyrel PO 50 mg HS MICHAEL Administration - Exam General Appearance: awake alert Eye: PERRL, scleral icterus ENT: no oropharyngeal lesions, moist mucosa Neck: supple, no JVD Heart: RRR, no murmur Respiratory: no wheezes, no rales Gastrointestinal: soft, non-tender, non-distended, normal bowel sounds, no guarding, no rigidity Extremities: no cyanosis, no edema Neurological: cranial nerve grossly intact, no focal deficits Hosp A/P (1) Jaundice Code(s): R17 - UNSPECIFIED JAUNDICE Status: Acute (2) Hypotension Status: Resolved Qualifiers: Hypotension type: unspecified hypotension type Qualified Code(s): I95.9 - Hypotension, unspecified (3) FABRIZIO (acute kidney injury) Code(s): N17.9 - ACUTE KIDNEY FAILURE, UNSPECIFIED Status: Resolved (4) Dehydration Code(s): E86.0 - DEHYDRATION Status: Resolved (5) Physical deconditioning Code(s): R53.81 - OTHER MALAISE Status: Acute (6) Hypertension Code(s): I10 - ESSENTIAL (PRIMARY) HYPERTENSION Status: Chronic Qualifiers: Hypertension type: essential hypertension Qualified Code(s): I10 - Essential (primary) hypertension (7) Hypothyroidism Code(s): E03.9 - HYPOTHYROIDISM, UNSPECIFIED Status: Chronic Qualifiers: Hypothyroidism type: unspecified Qualified Code(s): E03.9 - Hypothyroidism , unspecified - Plan continue synthroid at 112mcg/day, is known to be noncompliant on meds per family sbp usually runs around 98-110 going back to 2016 on [facility] [employer] echo for ef and lv funtion blood cs x2 is -ve, not on antibiotics renal function almost at baseline t.bili around 3mg PT to mobilize as tolerated, BP has improved will f/u continue asp, low dose coreg, singulaire, iv fluids, trazodone and protonix
--- NOTE | 2020-02-04 14:24 | EKG ---
Test Reason : Blood Pressure : / mmHG Vent. Rate : 063 BPM Atrial Rate : 063 BPM P-R Int : 184 ms QRS Dur : 066 ms QT Int : 466 ms P-R-T Axes : 050 -14 008 degrees QTc Int : 476 ms Normal sinus rhythm Prolonged QT Abnormal ECG Confirmed by JAMSHID ADAMS, JAMISON ([id number]), mapping editor KRISHNA OBRIEN ([id number]) on 02/04/2020 2:23:29 PM Referred By: Confirmed By:JAMISON BREEN MD
[2020-02-04] MEDS: Montelukast Sodium 10 mg Tablet PO SCH (21:30)
[2020-02-04] MEDS: traZODone HCl 50 MG TAB PO SCH (21:30)
[2020-02-05] MEDS: Levothyroxine Sodium 112 MCG TAB PO SCH (05:46)
[2020-02-05 06:00] LABS: ALT (SGPT) 25 U/L (8-55); AST (SGOT) 127 U/L (5-34); Albumin 2.2 g/dL (3.4-4.8); Alkaline Phosphatase 124 U/L (40-110); Anion Gap 12 mmol/L (10-20); BUN (Urea Nitrogen) 11 mg/dL (9.8-20.1); Bilirubin, Total 3.3 mg/dL (0.2-1.2); Calc. Creatinine Clearance 63 mL/min (70-130); Calcium 7.9 mg/dL (7.8-10.44); Carbon Dioxide 20 mmol/L (23-31); Chloride 108 mmol/L (98-107); Estimated GFR-MDRD 70; Globulin 2.7 g/dL (2.4-3.5); Glucose 81 mg/dL (80-115); Potassium 3.6 mmol/L (3.5-5.1); Protein, Total 4.9 g/dL (6.0-8.3); Sodium 136 mmol/L (136-145)
[2020-02-05 06:04] LABS: ALT (SGPT) 25 U/L (8-55); AST (SGOT) 128 U/L (5-34); Albumin 2.2 g/dL (3.4-4.8); Alkaline Phosphatase 124 U/L (40-110); Bilirubin, Direct 2.4 mg/dL (0.1-0.3); Bilirubin, Total 3.3 mg/dL (0.2-1.2); Protein, Total 4.9 g/dL (6.0-8.3)
--- NOTE | 2020-02-05 07:06 | PRG ---
DATE OF SERVICE: 02/04/2020 SUBJECTIVE: Ms. Mccormick states she feels a little bit better. She is getting some appetite. She has had no fever or chills. She denies abdominal pain. Admission H and P was reviewed as were the consult from Dr. Goldberg and notes from Dr. Ley from yesterday. I have also discussed the case with Dr. Ley from who saw the patient yesterday from GI service. MEDICATIONS: 1. Coreg. 2. B12. 3. Colace. 4. Lovenox. 5. Estradiol. 6. Folvite. 7. Synthroid 112 mcg. 8. Theragran. 9. Protonix. 10. Senokot S. 11. . 12. Trazodone p.r.n. PHYSICAL EXAMINATION: VITAL SIGNS: Temperature is 98, pulse 63, blood pressure is 97/61. SKIN: Somewhat dry. GENERAL: The patient knows where she is. She knows where she lives. She is not sure the day. LUNGS: Clear. HEART: Regular rate and rhythm without clicks or murmurs. ABDOMEN: There is possible mildly palpable liver which is below the right costal margin. EXTREMITIES: Reveal no clubbing, cyanosis, or edema. LABORATORY STUDIES: From today, white count 13.2, hemoglobin 9.3, platelet count 212, retic count on 01/19 was 2.9. Sodium 137, potassium 3.3. BUN and creatinine are 18 and 0.97. Bilirubin is 3.4, down from 5 yesterday, was 6.7 on the . ALT is 24, AST is 116, alkaline phosphatase 130, albumin is 2.2, total protein is 5, these were normal back last May. CEA is 5.52. B12 greater than 2000. TSH is 49.3, it was 18.7 on 01/19, it was 14 in 05/2019, it was 0.6 in 09/2019. Pending labs include a haptoglobin, CA-19-9, ELIOT, CMV, EBV, mitochondrial antibody. ASSESSMENT: The patient was admitted with what sounds like failure to thrive and jaundice, which she notes had been present for several weeks. Imaging showed no masses or tumors or biliary obstruction. There has been concern that some of this may be related to recent treatment with sulfasalazine or nitrofurantoin or multiple other antibiotics that she has been on for UTIs since the end of November. She does not know when all these medicines were off the top of her head. There have also been concerns that there may be some surreptitious alcohol use. There is some fatty liver on ultrasound. I would add that hemolysis could be a concern and that this may be related to her profound hypothyroidism. It is unclear if she is not taking her medicines or she needs a higher dose, but her TSH is significantly elevated, where it may be playing a role in all of this. PLAN: We will wait for previous labs ordered. Check indirect and direct bilirubin. We will defer to her primary service for treating her severe hypothyroidism. Job ID: [id number]
[2020-02-05 07:12] LABS: CMV IgG AB Greater than 10.00 U/mL (0.00-0.59)
[2020-02-05] MEDS: Cyanocobalamin (Vitamin B-12) 1,000 MCG TAB PO SCH (08:49)
[2020-02-05] MEDS: Aspirin 81 mg Enteric Coated Tablet PO SCH (08:49)
[2020-02-05] MEDS: Estradiol 1 MG TAB PO SCH (08:49)
[2020-02-05] MEDS: Enoxaparin Sodium 40 MG/0.4 ML SYRINGE SC SCH (08:50)
[2020-02-05] MEDS: Folic Acid 1 MG TAB PO SCH (08:50)
[2020-02-05] MEDS: Multivit, Therapeutic 1 TAB PO SCH (08:50)
[2020-02-05] MEDS: Carvedilol 3.125 MG TAB PO SCH ×2 (08:50→17:40)
--- NOTE | 2020-02-05 12:46 | PDOC.HOSPP ---
- Subjective Encounter Date: 02/05/20 Encounter Time: 11:20 Subjective: no abd pain or sob feels better is amb with PT but is unsteady - Objective Vital Signs & Weight: Vital Signs (12 hours) Temp Pulse Resp BP BP BP BP 02/05/20 11:57 106/55 L 122/84 86/58 L 02/05/20 08:00 02/05/20 07:58 98 F 68 18 109/66 Pulse Ox 02/05/20 11:57 02/05/20 08:00 92 L 02/05/20 07:58 92 L Weight Admit Weight 136 lb 12.8 oz Weight 136 lb 12.8 oz I&O: 02/04/20 02/05/20 02/06/20 06:59 06:59 06:59 Intake Total 1880 Output Total 1 Balance 1879 Result Diagrams: 02/03/20 05:17 02/05/20 05:24 Hospitalist ROS - Medication Medications: Active Medications Generic Name Dose Route Start Last Admin Trade Name Freq PRN Reason Stop Dose Admin Aspirin 81 mg 02/03/20 09:00 02/05/20 08:49 Ecotrin PO 81 mg DAILY MICHAEL Administration Carvedilol 3.125 mg 02/03/20 17:00 02/05/20 08:50 Coreg PO 3.125 mg BID-WM MICHAEL Administration Cyanocobalamin 2,500 mcg 02/03/20 09:00 02/05/20 08:49 Vitamin B-12 PO 2,500 mcg DAILY MICHAEL Administration Docusate Sodium 100 mg 02/02/20 16:09 02/02/20 20:09 Colace PO 100 mg BID PRN Administration Constipation Enoxaparin Sodium 40 mg 02/03/20 09:00 02/05/20 08:50 Lovenox SC 40 mg 0900 MICHAEL Administration Estradiol 1 mg 02/03/20 09:00 02/05/20 08:49 Estrace PO 1 mg DAILY MICHAEL Administration Folic Acid 1 mg 02/03/20 09:00 02/05/20 08:50 Folvite PO 1 mg DAILY MICHAEL Administration Levothyroxine Sodium 112 mcg 02/04/20 06:00 02/05/20 05:46 Synthroid PO 112 mcg 0600 MICHAEL Administration Montelukast Sodium 10 mg 02/02/20 21:00 02/04/20 21:30 Singulair PO 10 mg QPM MICHAEL Administration Multivitamins 1 tab 02/03/20 09:00 02/05/20 08:50 Theragran PO 1 tab DAILY MICHAEL Administration Pantoprazole Sodium 40 mg 02/03/20 09:00 02/05/20 08:50 Protonix PO 40 mg DAILY MICHAEL Administration Sodium Chloride 10 ml 02/03/20 21:00 02/05/20 08:51 Flush - Normal Saline IVF Not Given Q12HR MICHAEL Trazodone HCl 50 mg 02/02/20 21:00 02/04/20 21:30 Desyrel PO 50 mg HS MICHAEL Administration - Exam General Appearance: awake alert Eye: PERRL, scleral icterus ENT: no oropharyngeal lesions, moist mucosa Neck: supple, no JVD Heart: RRR, no murmur Respiratory: no wheezes, no rales Gastrointestinal: soft, non-tender, non-distended, normal bowel sounds Extremities: no cyanosis, no edema Neurological: cranial nerve grossly intact, no focal deficits Hosp A/P (1) Jaundice Code(s): R17 - UNSPECIFIED JAUNDICE Status: Acute (2) Hypotension Status: Acute Qualifiers: Hypotension type: unspecified hypotension type Qualified Code(s): I95.9 - Hypotension, unspecified (3) FABRIZIO (acute kidney injury) Code(s): N17.9 - ACUTE KIDNEY FAILURE, UNSPECIFIED Status: Resolved (4) Dehydration Code(s): E86.0 - DEHYDRATION Status: Resolved (5) Physical deconditioning Code(s): R53.81 - OTHER MALAISE Status: Acute (6) Hypertension Code(s): I10 - ESSENTIAL (PRIMARY) HYPERTENSION Status: Chronic Qualifiers: Hypertension type: essential hypertension Qualified Code(s): I10 - Essential (primary) hypertension (7) Hypothyroidism Code(s): E03.9 - HYPOTHYROIDISM, UNSPECIFIED Status: Chronic Qualifiers: Hypothyroidism type: unspecified Qualified Code(s): E03.9 - Hypothyroidism , unspecified - Plan continue synthroid at 112mcg/day, is known to be noncompliant on meds per family sbp usually runs around 98-110 going back to 2016 on [employer] echo shows normal ef and grossly normal valves blood cs x2 is -ve, not on antibiotics renal function almost at baseline t.bili around 3mg PT to mobilize as tolerated, BP has improved but has orthostasis will obtain cosyntropin stimulation test in am continue asp, low dose coreg, singulaire, iv fluids, trazodone and protonix dc plan to rehab in am after cortisol stimulation test.
[2020-02-05] MEDS ORDERED: Cosyntropin 250 MCG VIAL SLOW IVP SCH (13:00)
[2020-02-05] MEDS: Sodium Chloride 0.9% 1,000 ML IV SCH (15:18)
--- NOTE | 2020-02-05 17:42 | PRG ---
DATE OF SERVICE: 02/05/2020 REASON FOR CONSULTATION: Abnormal LFTs. SUBJECTIVE: Per nursing staff and per patient, there were no acute events or problems overnight. Today, she states that she is feeling much better when compared to on admission. She currently denies any nausea, vomiting, fevers, chills, abdominal pain, hematemesis, melena, or hematochezia. OBJECTIVE: VITAL SIGNS: Temperature 98, pulse 68, blood pressure 106/55, respiratory rate 18, saturating 92% on room air. GENERAL: The patient was lying in bed, in no acute distress. Alert and oriented x4. CARDIOVASCULAR: Regular rate and rhythm. RESPIRATORY: Clear to auscultation bilaterally. ABDOMEN: Normoactive bowel sounds. Soft, nontender, nondistended. EXTREMITIES: No cyanosis, clubbing, or edema. LABORATORY DATA: Chemistry showing AST of 128, ALT 25, alkaline phosphatase 124, total bilirubin 3.3. Alpha-1 antitrypsin 165, ceruloplasmin 26, and haptoglobin of 138. IMAGING DATA: No current GI imaging is available for review. ASSESSMENT AND PLAN: The patient is a 69-year-old female with past medical history of hypertension, hyperlipidemia, hypothyroidism, congestive heart failure, recurrent urinary tract infections, depression, adenomatous polyps of the colon, and prior history of alcohol abuse, presenting with elevated liver function tests. Abnormal liver function tests: The patient initially presented with a recent history of recurrent urinary tract infections for which she had been placed on multiple antibiotic regimens. Most recently, the patient had been placed on nitrofurantoin as part of treatment of her urinary tract infection and had not completed the antibiotic course, but then began having increased yellowing of her skin or in her eyes that ultimately prompted evaluation in the ER. During the course of this admission, testing so far has been negative for Christian disease, alpha-1 antitrypsin deficiency, intravascular hemolysis, autoimmune hepatitis, viral hepatitis, chronic Jono-Prieto virus, or hemochromatosis. At this time, the more likely explanations for her elevated LFTs in addition to an elevated ferritin (most likely an acute phase reactant) would be either reaction to the nitrofurantoin or even induction of mild autoimmune hepatitis with administration of this medication, although the latter is less likely. Also, she has significant findings for hypothyroidism which could in turn create elevated liver function tests as well. However, she does have an elevated carcinoembryonic antigen as well as an elevated CA-19-9, which is concerning for possible underlying malignancy. However, given the very nonspecific nature of these tests and the poor sensitivity of these tests, it is unclear if that could be affecting her currently from a neoplastic standpoint. Given her colonoscopy within the last year and the CT scan showing no intraabdominal abnormalities, a malignant type process is much less likely. RECOMMENDATIONS: 1. We would continue to trend the patient's LFTs while inpatient. 2. We will follow up on the remainder of the liver workup with the patient to follow up in the GI clinic in 2 to 3 weeks. 3. Agree with increasing the patient's levothyroxine for adequate treatment of her hypothyroidism. 4. We would avoid any potentially hepatotoxic medications. 5. Given the AST to ALT predominance, I strongly encouraged the patient on continued alcohol cessation. We will sign off at this time. Please call with any questions. Job ID: [id number]
[2020-02-05] MEDS: Montelukast Sodium 10 mg Tablet PO SCH (21:48)
[2020-02-05] MEDS: traZODone HCl 50 MG TAB PO SCH (21:48)
[2020-02-06 05:20] LABS: ALT (SGPT) 26 U/L (8-55); AST (SGOT) 135 U/L (5-34); Albumin 2.3 g/dL (3.4-4.8); Alkaline Phosphatase 122 U/L (40-110); Anion Gap 10 mmol/L (10-20); BUN (Urea Nitrogen) 9 mg/dL (9.8-20.1); Calc. Creatinine Clearance 65 mL/min (70-130); Calcium 8.2 mg/dL (7.8-10.44); Carbon Dioxide 23 mmol/L (23-31); Chloride 107 mmol/L (98-107); Estimated GFR-MDRD 72; Globulin 2.8 g/dL (2.4-3.5); Glucose 83 mg/dL (80-115); Potassium 3.5 mmol/L (3.5-5.1); Protein, Total 5.1 g/dL (6.0-8.3); Sodium 136 mmol/L (136-145)
[2020-02-06] MEDS: Estradiol 1 MG TAB PO SCH (08:17)
[2020-02-06] MEDS: Carvedilol 3.125 MG TAB PO SCH (08:18)
[2020-02-06] MEDS: Cyanocobalamin (Vitamin B-12) 1,000 MCG TAB PO SCH (08:18)
[2020-02-06] MEDS: Aspirin 81 mg Enteric Coated Tablet PO SCH (08:18)
[2020-02-06] MEDS: Folic Acid 1 MG TAB PO SCH (08:18)
[2020-02-06] MEDS: Enoxaparin Sodium 40 MG/0.4 ML SYRINGE SC SCH (08:19)
[2020-02-06] MEDS: Multivit, Therapeutic 1 TAB PO SCH (08:19)
[2020-02-06] MEDS: Levothyroxine Sodium 112 MCG TAB PO SCH (09:30)
[2020-02-06 11:54] VITALS: BP 97/58; TEMP 98
--- NOTE | 2020-02-06 12:06 | PDOC.HOSPP ---
- Subjective Encounter Date: 02/06/20 Encounter Time: 08:00 Subjective: no sob or nausea feels good - Objective Vital Signs & Weight: Vital Signs (12 hours) Temp Pulse Resp BP Pulse Ox 02/06/20 11:53 98.0 F 66 16 97/58 L 95 02/06/20 08:00 93 L 02/06/20 07:44 98.5 F 75 18 98/60 93 L Weight Admit Weight 136 lb 12.8 oz Weight 136 lb 12.8 oz Result Diagrams: 02/03/20 05:17 02/06/20 04:48 Hospitalist ROS - Medication Medications: Active Medications Generic Name Dose Route Start Last Admin Trade Name Freq PRN Reason Stop Dose Admin Aspirin 81 mg 02/03/20 09:00 02/06/20 08:18 Ecotrin PO 81 mg DAILY MICHAEL Administration Carvedilol 3.125 mg 02/03/20 17:00 02/06/20 08:18 Coreg PO 3.125 mg BID-WM MICHAEL Administration Cyanocobalamin 2,500 mcg 02/03/20 09:00 02/06/20 08:18 Vitamin B-12 PO 2,500 mcg DAILY MICHAEL Administration Docusate Sodium 100 mg 02/02/20 16:09 02/02/20 20:09 Colace PO 100 mg BID PRN Administration Constipation Enoxaparin Sodium 40 mg 02/03/20 09:00 02/06/20 08:19 Lovenox SC 40 mg 0900 MICHAEL Administration Estradiol 1 mg 02/03/20 09:00 02/06/20 08:17 Estrace PO 1 mg DAILY MICHAEL Administration Folic Acid 1 mg 02/03/20 09:00 02/06/20 08:18 Folvite PO 1 mg DAILY MICHAEL Administration Levothyroxine Sodium 112 mcg 02/04/20 06:00 02/06/20 09:30 Synthroid PO Not Given 0600 MICHAEL Montelukast Sodium 10 mg 02/02/20 21:00 02/05/20 21:48 Singulair PO 10 mg QPM MICHAEL Administration Multivitamins 1 tab 02/03/20 09:00 02/06/20 08:19 Theragran PO 1 tab DAILY MICHAEL Administration Pantoprazole Sodium 40 mg 02/03/20 09:00 02/06/20 08:18 Protonix PO 40 mg DAILY MICHAEL Administration Sodium Chloride 10 ml 02/03/20 21:00 02/06/20 08:20 Flush - Normal Saline IVF 10 ml Q12HR MICHAEL Administration Trazodone HCl 50 mg 02/02/20 21:00 02/05/20 21:48 Desyrel PO 50 mg HS MICHAEL Administration - Exam General Appearance: awake alert Eye: PERRL, scleral icterus ENT: no oropharyngeal lesions, moist mucosa Neck: supple, no JVD Heart: RRR, no murmur Respiratory: no wheezes, no rales Gastrointestinal: soft, non-tender, non-distended, normal bowel sounds Extremities: no cyanosis, no edema Neurological: cranial nerve grossly intact, no focal deficits Psychiatric: A&O x 3 Hosp A/P (1) Jaundice Code(s): R17 - UNSPECIFIED JAUNDICE Status: Acute (2) Hypotension Status: Acute Qualifiers: Hypotension type: unspecified hypotension type Qualified Code(s): I95.9 - Hypotension, unspecified (3) FABRIZIO (acute kidney injury) Code(s): N17.9 - ACUTE KIDNEY FAILURE, UNSPECIFIED Status: Resolved (4) Dehydration Code(s): E86.0 - DEHYDRATION Status: Resolved (5) Physical deconditioning Code(s): R53.81 - OTHER MALAISE Status: Acute (6) Hypertension Code(s): I10 - ESSENTIAL (PRIMARY) HYPERTENSION Status: Chronic Qualifiers: Hypertension type: essential hypertension Qualified Code(s): I10 - Essential (primary) hypertension (7) Hypothyroidism Code(s): E03.9 - HYPOTHYROIDISM, UNSPECIFIED Status: Chronic Qualifiers: Hypothyroidism type: unspecified Qualified Code(s): E03.9 - Hypothyroidism , unspecified - Plan continue synthroid at 112mcg/day, is known to be noncompliant on meds per family sbp usually runs around 98-110 going back to 2016 on [employer] echo shows normal ef and grossly normal valves blood cs x2 is -ve, not on antibiotics renal function almost at baseline t.bili around 3mg PT to mobilize as tolerated, BP has improved but has orthostasis cosyntropin stimulation test is normal continue asp, low dose coreg, singulaire, iv fluids, trazodone and protonix dc plan to rehab anytime
--- NOTE | 2020-02-06 13:31 | DIS ---
DATE OF ADMISSION: 02/02/2020 DATE OF DISCHARGE: 02/06/2020 DISCHARGE DISPOSITION: Inpatient rehab. PRIMARY DISCHARGE DIAGNOSES: Cholestatic jaundice, likely due to medication (Macrobid); orthostatic hypotension; acute kidney injury on admission, resolved; dehydration on admission, resolved; deconditioning; hypertension; hypothyroidism ; noncompliant with medication; possible alcohol abuse. PROCEDURES DONE DURING HOSPITALIZATION: Abdominal and pelvic CAT scan done showed small amount of right pleural fluid, fatty infiltration of liver. Echo with 2D Doppler showed EF of 60% to 65%, grade 1/3 diastolic dysfunction, normal RV size and function. Blood cultures x2, no growth. She had a white count of 16 on the day of admission, hemoglobin and hematocrit of 9 and 29, platelet count 212, MCV is 108 with 80% neutrophils. Haptoglobin 138, which is normal. Total bilirubin 6.7 on the day of admission, discharge numbers of 3. AST 165, ALT 34, alkaline phosphatase 191. Ammonia was 23. BNP 362. Albumin 3.3. BUN 32, creatinine 1.4 on the day of admission. Vitamin B12 greater than 2000. CA 19-9 antigen is 1228 units/mL. Carcinoembryonic antigen 5.52. AFP tumor markers 5.0. Ferritin 3437. Serum iron 50, TIBC 111, folic acid 17.2, free T4 of 0.46, free T3 of 1.28, TSH 49.30. Cosyntropin stimulation test was normal with appropriate cortisol response. IgG total 1277, IgA total 368, IgM total 94. Smooth muscle antibody titer 11. Acute hepatitis panel was negative. CMV IgG greater than 10. CMV IgM antibody less than 30. EBV DNA PCR is pending. INPATIENT CONSULT: Dr. Sawyer Goldberg for Gastroenterology. DISCHARGE PLAN: The patient to follow up with Dr. Goldberg in 2 to 3 weeks; primary care physician, Dr. Christiansen in 1 week. BRIEF COURSE DURING HOSPITALIZATION: The patient initially got admitted on the for complaints of generalized weakness and weight loss. On clinical exam, the patient was found to be jaundiced. She had a total bilirubin of 6.7. She was treated with Macrobid recently for urinary tract infection. Multiple workups were done to ascertain the cause of her jaundice. All of them were negative except for history of taking Macrobid for recent UTI leading to drug-induced cholestatic jaundice. Her total bilirubin is 3 on the day of discharge. The patient also has history of alcohol abuse in the past and is known to use alcohol at her assisted living facility. She was strongly counseled against any usage of alcohol. In view of deconditioning, she is being discharged to inpatient rehab for further recuperation. She will follow up with Dr. Goldberg in 2 weeks for further workup and to follow up on the LFTs and elevated CA 19-9 antigen. Please see a [id number] documentation for the day of discharge on [facility]. TIME SPENT: A total of 35 minutes was spent on discharge plan. Job ID: [id number] MTDD
--- NOTE | 2020-02-09 05:24 | PQF ---
OLVIN GOETZ VINAYA KUMAR MD [id number] CLINICAL DOCUMENTATION CLARIFICATION FORM: POST DISCHARGE Addendum to original discharge summary date: ____ Late entry note date: __ Date:02/09/2020 ATTN: Jan Balderas Please exercise your independent, professional judgment in responding to the clarification form. Clinical indicators are provided on the bottom of this form for your review Please check appropriate box(s): [ x ] Protein Calorie Malnutrition: [x ] Mild [ ] Moderate [ ] Severe [ ] Other Malnutrition (please specify) __ [ ] Underweight without malnutrition [ ] Cachexia [ ] Other diagnosis [ ] Unable to determine In addition, please specify: Present on Admission (POA): [ x] Yes [ ] No [ ] Unable to determine CLINICAL INDICATORS - SIGNS / SYMPTOMS / LABS Laboratory 02/01 Serum Total Protein 6.5, albumin 3.2, Globulin 3.2, Albumin/ Globulin Ratio 1.0 BMI 22.1 Avionics Manager Assessment 02/02 Pt reports poor appetite for the past 3 weeks Avionics Manager Assessment 02/02 -2% wt loss compared to stated UBW PN p2 02/03 Dr Frank Admitted with what sounds like failure to thrive and jaundice RISK FACTORS H&P p1 02/01 69 year-old Female H&P p1 02/01 HTN H&P p1 02/01 Hypothyroidism H&P p1 02/01 Vitamin D Deficiency H&P p1 02/01 Alcohol abuse H&P p1 02/01 GERD H&P p1 02/01 Painless Jaundice PN p1 02/02 Macrocytic Anemia TREATMENT: Avionics Manager Consult 02/02 MAR 02/01 IVF NS 1L Avionics Manager Assessment 02/02 Supplement Potassium Avionics Manager Assessment 02/02 Ensure GI consult p1 02/01 Sawyer Gomez Avionics Manager Assessment 02/02 Monitor weight change Moderate Malnutrition (in acute illness) Energy Intake: <75% of estimated energy requirement for > 7 days Weight Loss: 1-2%/1 week; 5%/ 1 month; 7.5%/3 months Other: mild body fat loss; mild muscle mass loss; mild fluid accumulation; Severe Malnutrition (in acute illness) Energy Intake: < 50% of estimated energy requirement for > 5 days Weight Loss: >1-2%/1 week; >5%/1 month; >7.5%/3 months Other: moderate body fat loss; moderate muscle mass loss; moderate- severe fluid accumulation; measurably reduced manager online strength Moderate Malnutrition (in chronic illness) Energy Intake: <75% of estimated energy requirement for >1 month Weight Loss: 5%/1 month; 7.5%/3 months; 10%/6 months; 20%/1 year Other: mild body fat loss; mild muscle mass loss; mild fluid accumulation Severe Malnutrition (in chronic illness) Energy Intake: <75% of estimated energy requirement for >1 month Weight Loss: >5%/1 month; >7.5%/3 months; >10%/6 months; >20%/1 year Other: severe body fat loss; severe muscle mass loss; severe fluid accumulation ; measurably reduced manager online strength (This form is maintained as a part of the permanent medical record) 2014 [email or web address]. All Rights Reserved Nichol MTDD
[2020-02-10 16:14] LABS: ANA Symphony (Qualitative) Equivocal: See Note (Negative); ANA Symphony (Quantitative) 0.7 Ratio (< 0.7 Negative); dsDNA IgG Antibody 0.9 IU/mL (<10 Negative)
[2020-02-10 17:44] LABS: EliA Vaculitis New Method **** NEW METHOD ****; Mitochondrial Ab 0.9 U/mL (<4 Negative)
== END 2020-02-06 13:38 | DRG 442 ==
LOC: ERS 10:17 → T4-B 15:55 → INTOOBSV 15:55 → OBSVTOIN 16:09
PROVIDERS: ADMIT Internal Medicine; ATTEND Internal Medicine
DX: R17 Unspecified jaundice (principal); N17.9 Acute kidney failure, unspecified; I50.32 Chronic diastolic (congestive) heart failure; E44.1 Mild protein-calorie malnutrition; T37.8X6A Underdosing of other specified systemic anti-infectives and antiparasitics, initial encounter; E03.9 Hypothyroidism, unspecified; I95.1 Orthostatic hypotension; E86.0 Dehydration; F10.10 Alcohol abuse, uncomplicated; E55.9 Vitamin D deficiency, unspecified; K21.9 Gastro-esophageal reflux disease without esophagitis; Z96.612 Presence of left artificial shoulder joint; Z96.649 Presence of unspecified artificial hip joint; M81.0 Age-related osteoporosis without current pathological fracture; E78.5 Hyperlipidemia, unspecified; I11.0 Hypertensive heart disease with heart failure; D12.6 Benign neoplasm of colon, unspecified; Z96.641 Presence of right artificial hip joint; F32.9 Major depressive disorder, single episode, unspecified; D53.9 Nutritional anemia, unspecified; R62.7 Adult failure to thrive; Z90.710 Acquired absence of both cervix and uterus; Z91.14 Patient's other noncompliance with medication regimen; Z90.722 Acquired absence of ovaries, bilateral; Z87.440 Personal history of urinary (tract) infections; Z79.899 Other long term (current) drug therapy; Z79.890 Hormone replacement therapy; Z79.82 Long term (current) use of aspirin; Z68.22 Body mass index [BMI] 22.0-22.9, adult
CPT/HCPCS: 36415; 51701; 70450; 71045; 74177; 80053; 80074; 80306; 80307; 80400; 81003; 82103; 82105; 82140; 82247; 82378; 82390; 82550; 82607; 82728; 82746; 83010; 83516; 83540; 83550; 83605; 83690; 83880; 84439; 84443; 84481; 84484; 85025; 86038; 86225; 86301; 86644; 86645; 87040; 87798; 93005; 93306; 96360; 96361; 96365; A4353; J0834; J1650; J3411; J7030; J7042; Q9967

== ENCOUNTER 2020-02-23 14:02 | Inpatient (IN) | payer MEDICARE ==
[2020-02-23 15:17] LABS: #Eosinphils 0.2 thou/uL (0.0-0.7); #Lymphocytes 1.9 thou/uL (1.20-3.40); #Monocytes 0.8 thou/uL (0.11-0.59); #Neutrophils 8.4 thou/uL (1.40-6.50); %Basophils 0.3 % (0.0-1.0); %Eosinophils 1.5 % (0.0-10.0); %Lymphocytes 17.1 % (21.0-51.0); %Monocytes 6.9 % (0.0-10.0); %Neutrophils 74.3 % (42.0-75.0); Hemoglobin 9.8 g/dL (12.0-16.0); Mean Corpuscular HGB CONC 31.2 g/dL (32.0-36.0); Mean Platelet Volume 8.5 fL (7.4-10.4); Platelet Count 224 thou/uL (130-400); RBC Distribution Width 14.8 % (11.5-14.5); Red Blood Cell (RBC) Count 2.86 mill/uL (4.20-5.40); White Blood Cell (WBC) Count 11.3 thou/uL (4.8-10.8)
[2020-02-23 15:40] LABS: ALT (SGPT) 36 U/L (8-55); AST (SGOT) 123 U/L (5-34); Albumin 2.5 g/dL (3.4-4.8); Alkaline Phosphatase 122 U/L (40-110); Anion Gap 13 mmol/L (10-20); BUN (Urea Nitrogen) 8 mg/dL (9.8-20.1); Bilirubin, Total 2.3 mg/dL (0.2-1.2); Calc. Creatinine Clearance 0 mL/min (70-130); Calcium 7.9 mg/dL (7.8-10.44); Carbon Dioxide 20 mmol/L (23-31); Chloride 110 mmol/L (98-107); Estimated GFR-MDRD 67; Globulin 3.6 g/dL (2.4-3.5); Glucose 102 mg/dL (80-115); Lipase 59 U/L (8-78); Potassium 3.6 mmol/L (3.5-5.1); Protein, Total 6.1 g/dL (6.0-8.3); Sodium 139 mmol/L (136-145)
[2020-02-23 15:55] LABS: Bacteria/HPF 4+ HPF (None Seen); Bilirubin Negative (Negative); Blood, Urine Negative (Negative); Clarity Turbid (Clear); Glucose, Urine (Dipstick) Normal (Negative); Leukocyte 250 Leu/uL (Negative); Nitrite 2+ (Negative); Protein, Urine (Dipstick) 20 mg/dL (Neg-Trace); RBC/HPF 0-3 HPF (0-3); Squamous Epithelial 0-3 HPF (0-3); Urobilinogen Normal mg/dL (Less than 2)
--- NOTE | 2020-02-23 17:45 | ULT ---
EXAM: US Gallbladder RUQ CLINICAL HISTORY: Elevated liver function tests and elevated bilirubin. COMPARISON: None. FINDINGS: Pancreas: The proximal body of the pancreas has a normal echotexture. The remainder the pancreas is obscured by bowel gas Liver:Left hepatic lobe is obscured by bowel gas. Suboptimal evaluation the right hepatic lobe, which is presumed to be due to bowel gas versus hepatocellular disease versus hepatic steatosis. Gallbladder: Poorly visualized due to bowel gas Cerrato's sign:Cannot be commented upon due to poor gallbladder visualization Portal Vein: Poorly visualized due to bowel gas Bile ducts: Poorly visualized due to bowel gas Right kidney: Poorly visualized due to bowel gas Incidentals: There is fluid in the right upper quadrant. IMPRESSION: Suboptimal evaluation due to bowel gas. Fluid is noted in the right upper quadrant.
--- NOTE | 2020-02-23 19:36 | PDOC.HHP ---
Hospitalist HPI - History of Present Illness Diarrhea History of Present Illness: Patient with PMH of HTN presents to ED for evaluation of generalized weakness and diarrhea. Per patient she was recently in rehab and since being released from facility has been having persistent diarrhea. She denies any abdominal pain, or vomiting but admits to nausea and poor oral intake. Denies any fever or chills but admits to pronounced weakness. At baseline patient uses walker and refers having more difficulty with ambulation due to fatigue/weakness. She denies other complaints such as cough, shortness of breath, urinary discomfort. Initial ED evaluation reveals mild leukocytosis with urinalysis suggestive of UTI. Stool is negative for C.diff. Occult blood testing is pending. Does have mild elevation of LFTs of unclear significance. BNP also elevated but no clinical evidence of CHF decompensation. Hospitalist ROS - Review of Systems Constitutional: reports: weakness (Admits to progressive weakness), malaise. denies: fever, chills, sweats, other Respiratory: denies: cough, dry, shortness of breath, hemoptysis, SOB with excertion, pleuritic pain, sputum, wheezing, other Gastrointestinal: reports: nausea, diarrhea. denies: vomiting, abdominal pain, melena Genitourinary: denies: dysuria, frequency, incontinence, hematuria Neurological: denies: numbness, incoordination, change in speech, confusion, seizures, other - Medication Medications: Per Med Rec Hospitalist History - Past Medical History Cardiac: reports: HTN - Exam General Appearance: NAD, awake alert Eye: PERRL, anicteric sclera ENT: normocephalic atraumatic, moist mucosa Neck: supple, no JVD Heart: RRR Respiratory: CTAB, no wheezes Respiratory - other findings: Decreased BS at bases Gastrointestinal: soft, non-tender, non-distended Extremities: no cyanosis Skin: normal turgor Neurological: cranial nerve grossly intact, no focal deficits Musculoskeletal: normal tone Psychiatric: normal affect Hospitalist Results - Labs Result Diagrams: 02/24/20 04:30 02/23/20 15:05 Lab results: WBC 11.3 thou/uL (4.8-10.8) H 02/23/20 15:05 Hgb 9.8 g/dL (12.0-16.0) L 02/23/20 15:05 Hct 31.2 % (36.0-47.0) L 02/23/20 15:05 MCV 109.0 fL (78.0-98.0) H 02/23/20 15:05 Plt Count 224 thou/uL (130-400) 02/23/20 15:05 Neutrophils % 74.3 % (42.0-75.0) 02/23/20 15:05 Sodium 139 mmol/L (136-145) 02/23/20 15:05 Potassium 3.6 mmol/L (3.5-5.1) 02/23/20 15:05 Chloride 110 mmol/L (98-107) H 02/23/20 15:05 Carbon Dioxide 20 mmol/L (23-31) L 02/23/20 15:05 BUN 8 mg/dL (9.8-20.1) L 02/23/20 15:05 Creatinine 0.84 mg/dL (0.6-1.1) 02/23/20 15:05 Glucose 102 mg/dL (80-115) 02/23/20 15:05 Lactic Acid 1.1 mmol/L (0.5-2.2) 02/23/20 15:05 Calcium 7.9 mg/dL (7.8-10.44) 02/23/20 15:05 Total Bilirubin 2.3 mg/dL (0.2-1.2) H 02/23/20 15:05 AST 123 U/L (5-34) H 02/23/20 15:05 ALT 36 U/L (8-55) 02/23/20 15:05 Alkaline Phosphatase 122 U/L (40-110) H 02/23/20 15:05 Troponin I 0.015 ng/mL (< 0.028) 02/23/20 15:05 B-Natriuretic Peptide 944.4 pg/mL (0-100) H 02/23/20 15:05 Serum Total Protein 6.1 g/dL (6.0-8.3) 02/23/20 15:05 Albumin 2.5 g/dL (3.4-4.8) L 02/23/20 15:05 Lipase 59 U/L (8-78) 02/23/20 15:05 Urine Ketones Negative mg/dL (Negative) 02/23/20 15:14 Urine Blood Negative (Negative) 02/23/20 15:14 Urine Nitrite 2+ (Negative) A 02/23/20 15:14 Ur Leukocyte Esterase 250 Matthew/uL (Negative) A 02/23/20 15:14 Urine RBC 0-3 HPF (0-3) 02/23/20 15:14 Urine WBC 11-20 HPF (0-3) A 02/23/20 15:14 Ur Squamous Epith Cells 0-3 HPF (0-3) 02/23/20 15:14 Urine Bacteria 4+ HPF (None Seen) A 02/23/20 15:14 Hospitalist H&P A/P - Plan Plan: Problem List 1. Diarrhea likely due to viral enteritis 2. Dehydration 3. UTI 4. Generalized weakness 5. Elevated LFTs Assessment and Plan Presents for evaluation of diarrhea and nausea with poor oral intake. C.diff negative in ED. Other non specific findings including marginal elevation of LFTs. UA suggestive of UTI. Weakness likely multifactorial in setting of possible UTI, diarrhea due to entiritis likely viral and dehydration. Admit patient to medical floor Check stool studies including culture, C.diff is negative Check stool for occult blood Continue with IVF hydration Obtain urine culture IV Ceftriaxone empirically for UTI Hold off on antidiarrheals for now Recheck LFTs, RUQ US with poor visualization due to gas PT/OT evaluation for discharge disposition Patient may need rehab at time of discharge CM has been consulted
[2020-02-23] MEDS ORDERED: Ondansetron PF 4 MG/2 ML Vial IVP PRN (20:01)
[2020-02-23] MEDS: Sodium Chloride 0.9% 1,000 ML IV SCH (23:14)
[2020-02-23] MEDS: Montelukast Sodium 10 mg Tablet PO SCH (23:15)
[2020-02-24] MEDS: cefTRIAXone\\ROCEPHIN 1 GM in Sodium Chloride 0.9% 100 ML IVPB SCH (00:09)
[2020-02-24 04:42] LABS: #Eosinphils 0.3 thou/uL (0.0-0.7); #Lymphocytes 1.8 thou/uL (1.20-3.40); #Monocytes 0.8 thou/uL (0.11-0.59); #Neutrophils 6.7 thou/uL (1.40-6.50); %Basophils 0.3 % (0.0-1.0); %Eosinophils 2.7 % (0.0-10.0); %Lymphocytes 18.3 % (21.0-51.0); %Monocytes 8.3 % (0.0-10.0); %Neutrophils 70.4 % (42.0-75.0); Hemoglobin 9.4 g/dL (12.0-16.0); Mean Corpuscular HGB CONC 31.4 g/dL (32.0-36.0); Mean Corpuscular Hemoglobin 34.3 pg (27.0-31.0); Mean Platelet Volume 8.5 fL (7.4-10.4); Platelet Count 194 thou/uL (130-400); RBC Distribution Width 14.7 % (11.5-14.5); Red Blood Cell (RBC) Count 2.73 mill/uL (4.20-5.40); White Blood Cell (WBC) Count 9.6 thou/uL (4.8-10.8)
[2020-02-24 05:05] LABS: ALT (SGPT) 31 U/L (8-55); AST (SGOT) 108 U/L (5-34); Albumin 2.2 g/dL (3.4-4.8); Alkaline Phosphatase 114 U/L (40-110); Anion Gap 12 mmol/L (10-20); BUN (Urea Nitrogen) 8 mg/dL (9.8-20.1); Bilirubin, Total 2.1 mg/dL (0.2-1.2); Calc. Creatinine Clearance 62 mL/min (70-130); Calcium 7.7 mg/dL (7.8-10.44); Carbon Dioxide 20 mmol/L (23-31); Chloride 111 mmol/L (98-107); Estimated GFR-MDRD 69; Globulin 3.6 g/dL (2.4-3.5); Glucose 92 mg/dL (80-115); Potassium 3.2 mmol/L (3.5-5.1); Protein, Total 5.8 g/dL (6.0-8.3); Sodium 140 mmol/L (136-145)
[2020-02-24] MEDS: Sodium Chloride 0.9% 1,000 ML IV SCH ×2 (05:31→18:50)
[2020-02-24] MEDS: Carvedilol 3.125 MG TAB PO SCH ×2 (08:11→18:51)
[2020-02-24] MEDS: Thiamine 100 MG TAB PO SCH (08:11)
[2020-02-24] MEDS: Aspirin 81 mg Enteric Coated Tablet PO SCH (08:11)
[2020-02-24] MEDS: Cyanocobalamin (Vitamin B-12) 1,000 MCG TAB PO SCH (08:11)
[2020-02-24] MEDS: Folic Acid 1 MG TAB PO SCH (08:11)
--- NOTE | 2020-02-24 16:55 | PDOC.HOSPP ---
- Subjective Subjective: Seen and examined. Patient complaining of UTI symptoms. Patient having loose stools. Negative for C. diff. Overall patient states she's feeling better. Time was given for questions, all answered in detail. - Objective Vital Signs & Weight: Vital Signs (12 hours) Temp Pulse Pulse Pulse Resp BP BP 02/24/20 16:00 98.1 F 95 16 02/24/20 11:35 97.8 F 80 13 02/24/20 11:00 80 81 132/60 123/78 02/24/20 08:02 98.6 F 84 16 02/24/20 08:00 BP Pulse Ox 02/24/20 16:00 122/65 95 02/24/20 11:35 123/69 95 02/24/20 11:00 02/24/20 08:02 136/61 95 02/24/20 08:00 95 Weight Admit Weight 135 lb 11.2 oz Weight 135 lb 11.2 oz I&O: 02/23/20 02/24/20 02/25/20 06:59 06:59 06:59 Intake Total 1040 Balance 1040 Result Diagrams: 02/24/20 04:30 02/24/20 04:30 Radiology Reviewed by me: Yes Hospitalist ROS - Review of Systems All other systems reviewed; all pertinent +/- noted in HPI/Subj - Medication Medications: Active Medications Generic Name Dose Route Start Last Admin Trade Name Freq PRN Reason Stop Dose Admin Aspirin 81 mg 02/24/20 09:00 02/24/20 08:11 Ecotrin PO 81 mg DAILY MICHAEL Administration Carvedilol 3.125 mg 02/24/20 08:00 02/24/20 08:11 Coreg PO 3.125 mg BID-WM MICHAEL Administration Cholecalciferol 5,000 units 02/24/20 09:00 02/24/20 08:10 Vitamin D3 PO 5,000 units DAILY MICHAEL Administration Cyanocobalamin 1,000 mcg 02/24/20 09:00 02/24/20 08:11 Vitamin B-12 PO 1,000 mcg DAILY MICHAEL Administration Folic Acid 1 mg 02/24/20 09:00 02/24/20 08:11 Folvite PO 1 mg DAILY MICHAEL Administration Sodium Chloride 1,000 mls @ 100 mls/hr 02/23/20 20:15 02/24/20 05:31 Normal Saline 0.9% IV 05/19/20 20:09 Not Given .Q10H MICHAEL Ceftriaxone Sodium 1 gm/ 100 mls @ 200 mls/hr 02/23/20 23:59 02/24/20 00:09 Sodium Chloride IVPB 100 mls Q24HR MICHAEL Administration Montelukast Sodium 10 mg 02/23/20 21:00 02/23/20 23:15 Singulair PO 10 mg QPM MICHAEL Administration Pantoprazole Sodium 40 mg 02/24/20 09:00 02/24/20 08:11 Protonix PO 40 mg DAILY MICHAEL Administration Thiamine HCl 100 mg 02/24/20 09:00 02/24/20 08:11 Thiamine PO 100 mg DAILY MICHAEL Administration - Exam General Appearance: NAD Eye: anicteric sclera ENT: normocephalic atraumatic, moist mucosa Neck: supple, symmetric, no lymphadenopathy Heart: no murmur, no gallops, no rubs Respiratory: CTAB, no wheezes, no rales, no ronchi, normal chest expansion Gastrointestinal: soft, non-tender, no guarding, no rigidity Extremities: no edema Skin: no lesions, no rashes Neurological: cranial nerve grossly intact, no focal deficits Musculoskeletal: generalized weakness Psychiatric: normal affect, oriented to person, oriented to place Hosp A/P (1) UTI (urinary tract infection) Status: Acute (2) Viral diarrhea Code(s): A08.4 - VIRAL INTESTINAL INFECTION, UNSPECIFIED Status: Acute (3) Physical deconditioning Code(s): R53.81 - OTHER MALAISE Status: Acute (4) Hypertension Code(s): I10 - ESSENTIAL (PRIMARY) HYPERTENSION Status: Chronic Qualifiers: Hypertension type: essential hypertension Qualified Code(s): I10 - Essential (primary) hypertension (5) Hypothyroidism Code(s): E03.9 - HYPOTHYROIDISM, UNSPECIFIED Status: Chronic Qualifiers: Hypothyroidism type: unspecified Qualified Code(s): E03.9 - Hypothyroidism , unspecified (6) FABRIZIO (acute kidney injury) Code(s): N17.9 - ACUTE KIDNEY FAILURE, UNSPECIFIED Status: Resolved (7) Dehydration Code(s): E86.0 - DEHYDRATION Status: Resolved - Plan Plan: medical unit telemetry broad-spectrum antibiotics for urinary tract infection De escalate to culture and sensitivity as able viral diarrhea, C. diff negative dehydration present on admission physical therapy/occupational therapy evaluation treatment may benefit from a short course of rehabilitation placement continue other home medications as able blood pressure control blood sugar control G.I. prophylaxis DVT prophylaxis
[2020-02-24] MEDS: Montelukast Sodium 10 mg Tablet PO SCH (20:31)
[2020-02-25] MEDS: cefTRIAXone\\ROCEPHIN 1 GM in Sodium Chloride 0.9% 100 ML IVPB SCH (00:31)
[2020-02-25] MEDS: Folic Acid 1 MG TAB PO SCH (08:40)
[2020-02-25] MEDS: Thiamine 100 MG TAB PO SCH (08:40)
[2020-02-25] MEDS: Aspirin 81 mg Enteric Coated Tablet PO SCH (08:40)
[2020-02-25] MEDS: Carvedilol 3.125 MG TAB PO SCH ×2 (08:41→16:34)
[2020-02-25] MEDS: Cyanocobalamin (Vitamin B-12) 1,000 MCG TAB PO SCH (08:41)
[2020-02-25 09:11] LABS: #Eosinphils 0.3 thou/uL (0.0-0.7); #Lymphocytes 1.7 thou/uL (1.20-3.40); #Monocytes 0.6 thou/uL (0.11-0.59); %Basophils 0.4 % (0.0-1.0); %Eosinophils 3.1 % (0.0-10.0); %Lymphocytes 17.6 % (21.0-51.0); %Monocytes 6.6 % (0.0-10.0); %Neutrophils 72.3 % (42.0-75.0); Hemoglobin 10.4 g/dL (12.0-16.0); Mean Corpuscular Hemoglobin 33.8 pg (27.0-31.0); Mean Platelet Volume 8.6 fL (7.4-10.4); Platelet Count 211 thou/uL (130-400); RBC Distribution Width 14.6 % (11.5-14.5); Red Blood Cell (RBC) Count 3.07 mill/uL (4.20-5.40); White Blood Cell (WBC) Count 9.7 thou/uL (4.8-10.8)
[2020-02-25 09:20] LABS: Anion Gap 11 mmol/L (10-20); BUN (Urea Nitrogen) 7 mg/dL (9.8-20.1); Calc. Creatinine Clearance 63 mL/min (70-130); Calcium 7.7 mg/dL (7.8-10.44); Carbon Dioxide 19 mmol/L (23-31); Chloride 114 mmol/L (98-107); Estimated GFR-MDRD 68; Glucose 143 mg/dL (80-115); Sodium 141 mmol/L (136-145)
[2020-02-25 09:29] LABS: Potassium 2.8 mmol/L (3.5-5.1)
[2020-02-25] MEDS: Potassium Chloride 20 MEQ TAB PO SCH ×2 (09:59→13:41)
--- NOTE | 2020-02-25 15:24 | EKG ---
Test Reason : Blood Pressure : / mmHG Vent. Rate : 078 BPM Atrial Rate : 078 BPM P-R Int : 154 ms QRS Dur : 068 ms QT Int : 388 ms P-R-T Axes : 016 -15 -02 degrees QTc Int : 442 ms Normal sinus rhythm Nonspecific T wave abnormality Abnormal ECG Confirmed by JUANITA ADAMS, JOSE Ramirez ([id number]), television news video editor KRISHNA OBRIEN ([id number]) on 02/25/2020 3:23:53 PM Referred By: Confirmed By:JOSE GRANT MD
[2020-02-25] MEDS ORDERED: Saccharomyces boulardii 250 MG CAP PO SCH (18:00)
--- NOTE | 2020-02-25 18:01 | PDOC.HOSPP ---
- Subjective Encounter Date: 02/25/20 Encounter Time: 09:40 Subjective: Pt seen for followyup re: UTI. Still has diarrhea. No fevers. - Objective Vital Signs & Weight: Vital Signs (12 hours) Temp Pulse Pulse Pulse Resp BP BP 02/25/20 15:52 98.2 F 77 18 02/25/20 11:29 98.9 F 74 12 02/25/20 09:29 75 76 133/65 129/62 02/25/20 07:23 98.5 F 72 16 BP Pulse Ox 02/25/20 15:52 119/78 95 02/25/20 11:29 106/66 94 L 02/25/20 09:29 02/25/20 07:23 120/61 92 L Weight Admit Weight 135 lb 11.2 oz Weight 138 lb 10.732 oz I&O: 02/24/20 02/25/20 02/26/20 06:59 06:59 06:59 Intake Total 1040 1770 Balance 1040 1770 Result Diagrams: 02/25/20 08:49 02/25/20 08:49 Additional Labs: Labs and MARs reviewed by me EKG Reviewed by me: Yes (Tele: NSR) Hospitalist ROS - Review of Systems Cardiovascular: denies: chest pain, palpitations, orthopnea, paroxysmal noc. dyspnea, edema, light headedness Gastrointestinal: reports: diarrhea. denies: nausea, vomiting, abdominal pain, constipation, melena, hematochezia - Medication Medications: Active Medications Generic Name Dose Route Start Last Admin Trade Name Freq PRN Reason Stop Dose Admin Aspirin 81 mg 02/24/20 09:00 02/25/20 08:40 Ecotrin PO 81 mg DAILY MICHAEL Administration Carvedilol 3.125 mg 02/24/20 08:00 02/25/20 16:34 Coreg PO 3.125 mg BID- MICHAEL Administration Cholecalciferol 5,000 units 02/24/20 09:00 02/25/20 08:39 Vitamin D3 PO 5,000 units DAILY MICHAEL Administration Cyanocobalamin 1,000 mcg 02/24/20 09:00 02/25/20 08:41 Vitamin B-12 PO 1,000 mcg DAILY MICHAEL Administration Folic Acid 1 mg 02/24/20 09:00 02/25/20 08:40 Folvite PO 1 mg DAILY MICHAEL Administration Ceftriaxone Sodium 1 gm/ 100 mls @ 200 mls/hr 02/23/20 23:59 02/25/20 00:31 Sodium Chloride IVPB 100 mls Q24HR MICHAEL Administration Montelukast Sodium 10 mg 02/23/20 21:00 02/24/20 20:31 Singulair PO 10 mg QPM MICHAEL Administration Pantoprazole Sodium 40 mg 02/24/20 09:00 02/25/20 08:41 Protonix PO 40 mg DAILY MICHAEL Administration Thiamine HCl 100 mg 02/24/20 09:00 02/25/20 08:40 Thiamine PO 100 mg DAILY MICHAEL Administration - Exam General Appearance: awake alert Eye: anicteric sclera ENT: moist mucosa Neck: supple Heart: RRR Respiratory: CTAB, no rales Gastrointestinal: soft, non-tender Extremities: no clubbing Skin: no rashes Psychiatric: normal affect, normal behavior Hosp A/P - Plan Hosp A/P (1) UTI (urinary tract infection) Status: Acute (2)Hypokalemia Status: Acute (3) Physical deconditioning Code(s): R53.81 - OTHER MALAISE Status: Acute (4) Viral diarrhea Code(s): A08.4 - VIRAL INTESTINAL INFECTION, UNSPECIFIED Status: Acute (5) Hypothyroidism Code(s): E03.9 - HYPOTHYROIDISM, UNSPECIFIED Status: Chronic Qualifiers: Hypothyroidism type: unspecified Qualified Code(s): E03.9 - Hypothyroidism , unspecified (6) Hypertension Code(s): I10 - ESSENTIAL (PRIMARY) HYPERTENSION Status: Chronic Qualifiers: Hypertension type: essential hypertension Qualified Code(s): I10 - Essential (primary) hypertension (7) FABRIZIO (acute kidney injury) Code(s): N17.9 - ACUTE KIDNEY FAILURE, UNSPECIFIED Status: Resolved (8) Dehydration Code(s): E86.0 - DEHYDRATION Status: Resolved - Plan Continue ceftriaxone. Add Florastor. Replace potassium PT/OT eval/tx HTN controlled Dispo: Rehab vs home with
[2020-02-25] MEDS: Montelukast Sodium 10 mg Tablet PO SCH (21:24)
[2020-02-26] MEDS: cefTRIAXone\\ROCEPHIN 1 GM in Sodium Chloride 0.9% 100 ML IVPB SCH (01:58)
[2020-02-26 04:28] LABS: #Basophils 0.1 thou/uL (0.0-0.2); #Eosinphils 0.2 thou/uL (0.0-0.7); #Lymphocytes 2.1 thou/uL (1.20-3.40); #Monocytes 0.8 thou/uL (0.11-0.59); #Neutrophils 6.7 thou/uL (1.40-6.50); %Basophils 0.7 % (0.0-1.0); %Eosinophils 2.5 % (0.0-10.0); %Monocytes 7.6 % (0.0-10.0); %Neutrophils 68.1 % (42.0-75.0); Hemoglobin 9.2 g/dL (12.0-16.0); Mean Corpuscular HGB CONC 30.8 g/dL (32.0-36.0); Mean Corpuscular Hemoglobin 33.8 pg (27.0-31.0); Mean Platelet Volume 8.6 fL (7.4-10.4); Platelet Count 194 thou/uL (130-400); RBC Distribution Width 14.4 % (11.5-14.5); Red Blood Cell (RBC) Count 2.72 mill/uL (4.20-5.40); White Blood Cell (WBC) Count 9.8 thou/uL (4.8-10.8)
[2020-02-26 04:49] LABS: Anion Gap 9 mmol/L (10-20); BUN (Urea Nitrogen) 6 mg/dL (9.8-20.1); Calc. Creatinine Clearance 68 mL/min (70-130); Calcium 7.5 mg/dL (7.8-10.44); Carbon Dioxide 20 mmol/L (23-31); Chloride 116 mmol/L (98-107); Estimated GFR-MDRD 74; Glucose 93 mg/dL (80-115); Potassium 3.7 mmol/L (3.5-5.1); Sodium 141 mmol/L (136-145)
[2020-02-26] MEDS ORDERED: Ciprofloxacin 500 MG TAB PO SCH (08:15)
[2020-02-26] MEDS ORDERED: Loperamide HCl 2 MG CAP PO PRN (09:47)
[2020-02-26] MEDS ORDERED: Loperamide HCl 2 MG CAP PO SCH (10:00)
[2020-02-26] MEDS: Aspirin 81 mg Enteric Coated Tablet PO SCH (10:38)
[2020-02-26] MEDS: Carvedilol 3.125 MG TAB PO SCH ×2 (10:38→16:47)
[2020-02-26] MEDS: Folic Acid 1 MG TAB PO SCH (10:39)
[2020-02-26] MEDS: Thiamine 100 MG TAB PO SCH (10:39)
[2020-02-26] MEDS: Saccharomyces boulardii 250 MG CAP PO SCH (10:39)
[2020-02-26] MEDS: Cyanocobalamin (Vitamin B-12) 1,000 MCG TAB PO SCH (10:39)
[2020-02-26 12:03] LABS: Albumin 2.2 g/dL (3.4-4.8)
[2020-02-26 12:06] LABS: Protein, Total 5.7 g/dL (6.0-8.3)
[2020-02-26 12:08] LABS: Bilirubin, Total 1.8 mg/dL (0.2-1.2)
[2020-02-26 12:09] LABS: Alkaline Phosphatase 113 U/L (40-110)
[2020-02-26 12:11] LABS: AST (SGOT) 105 U/L (5-34); Bilirubin, Direct 1.5 mg/dL (0.1-0.3)
[2020-02-26 12:12] LABS: ALT (SGPT) 31 U/L (8-55)
[2020-02-26 14:37] VITALS: BMI 22.9
--- NOTE | 2020-02-26 17:05 | PDOC.HOSPP ---
- Subjective Encounter Date: 02/26/20 Encounter Time: 07:40 Subjective: Pt seen for followup re: UTI. Has diarrhea. Feels better. - Objective Vital Signs & Weight: Vital Signs (12 hours) Temp Pulse Pulse Pulse Resp BP BP 02/26/20 16:44 98.6 F 76 12 02/26/20 11:25 84 76 129/66 116/59 L 02/26/20 10:56 97.6 F 76 20 02/26/20 08:48 97.9 F 74 16 BP BP Pulse Ox 02/26/20 16:44 117/66 95 02/26/20 11:25 02/26/20 10:56 124/64 97 02/26/20 08:48 120/59 L 97 Weight Admit Weight 135 lb 11.2 oz Weight 142 lb 3.17 oz I&O: 02/25/20 02/26/20 02/27/20 06:59 06:59 06:59 Intake Total 1770 1410 720 Balance 1770 1410 720 Result Diagrams: 02/26/20 03:46 02/26/20 03:46 Additional Labs: Labs and MARs reviewed by me EKG Reviewed by me: Yes (Tele: NSR) Hospitalist ROS - Review of Systems Cardiovascular: denies: chest pain, palpitations, orthopnea, paroxysmal noc. dyspnea, edema, light headedness, other Gastrointestinal: reports: diarrhea. denies: nausea, vomiting, abdominal pain, constipation, melena, hematochezia - Medication Medications: Active Medications Generic Name Dose Route Start Last Admin Trade Name Markq PRN Reason Stop Dose Admin Aspirin 81 mg 02/24/20 09:00 02/26/20 10:38 Ecotrin PO 81 mg DAILY MICHAEL Administration Carvedilol 3.125 mg 02/24/20 08:00 02/26/20 16:47 Coreg PO 3.125 mg BID- MICHAEL Administration Cholecalciferol 5,000 units 02/24/20 09:00 02/26/20 10:38 Vitamin D3 PO 5,000 units DAILY MICHAEL Administration Cyanocobalamin 1,000 mcg 02/24/20 09:00 02/26/20 10:39 Vitamin B-12 PO 1,000 mcg DAILY MICHAEL Administration Folic Acid 1 mg 02/24/20 09:00 02/26/20 10:39 Folvite PO 1 mg DAILY MICHAEL Administration Montelukast Sodium 10 mg 02/23/20 21:00 02/25/20 21:24 Singulair PO 10 mg QPM MICHAEL Administration Pantoprazole Sodium 40 mg 02/24/20 09:00 02/26/20 10:38 Protonix PO 40 mg DAILY MICHAEL Administration Saccharomyces Boulardii 250 mg 02/26/20 09:00 02/26/20 10:39 Florastor PO 250 mg DAILY MICHAEL Administration Thiamine HCl 100 mg 02/24/20 09:00 02/26/20 10:39 Thiamine PO 100 mg DAILY MICHAEL Administration - Exam General Appearance: awake alert Eye: anicteric sclera ENT: no oropharyngeal lesions Neck: no JVD Heart: RRR Respiratory: CTAB, normal chest expansion Gastrointestinal: soft, non-tender, non-distended, normal bowel sounds Skin: no rashes Psychiatric: normal affect, normal behavior Hosp A/P - Plan plan discussed w/ family, continue antibiotics Hosp A/P (1) UTI (urinary tract infection) Status: Acute (2) Viral diarrhea Code(s): A08.4 - VIRAL INTESTINAL INFECTION, UNSPECIFIED Status: Acute (3) Physical deconditioning Code(s): R53.81 - OTHER MALAISE Status: Acute (4) Hypothyroidism Code(s): E03.9 - HYPOTHYROIDISM, UNSPECIFIED Status: Chronic Qualifiers: Hypothyroidism type: unspecified Qualified Code(s): E03.9 - Hypothyroidism , unspecified (5) Hypertension Code(s): I10 - ESSENTIAL (PRIMARY) HYPERTENSION Status: Chronic Qualifiers: Hypertension type: essential hypertension Qualified Code(s): I10 - Essential (primary) hypertension (6) Abnormal LFTs Status: Chronic (7) FABRIZIO (acute kidney injury) Code(s): N17.9 - ACUTE KIDNEY FAILURE, UNSPECIFIED Status: Resolved (8) Dehydration Code(s): E86.0 - DEHYDRATION Status: Resolved (9)Hypokalemia Status: Acute - Plan Start ciprofloxacin, DC ceftriacone Start Imodium. Pt to go to Rehab on dc HTN controlled Discussed with daughters and GI service re: abnormal LFTs. Attributed to Macrobid in the past. However, CA 19-9 was elevated, will check MRI liver and repeat abdo US (previous abdo US inconclusive).
--- NOTE | 2020-02-26 19:58 | CON ---
DATE OF CONSULTATION: 02/26/2020 REQUESTING PHYSICIAN: Dr. Maynard. REASON FOR CONSULTATION: Elevated LFTs. HISTORY OF PRESENT ILLNESS: Alaina Mccormick is a 69-year-old woman, who was seen recently in the hospital 3 weeks ago by my colleague, Dr. Goldberg. She has a history of hypertension, hyperlipidemia, hypothyroidism, congestive heart failure, depression, and recurrent urinary tract infections. She had a colonoscopy with Dr. Goldberg in 2018, which was remarkable only for a single small colon polyp, which was removed. She was hospitalized in late January with recurrent urinary tract infection, was found to have significantly elevated LFTs at that time. Her total bilirubin was up to 6.7, alkaline phosphatase 191, AST 165, and ALT normal at 34. She underwent some extensive laboratory workup including negative viral hepatitis serologies, negative testing for Christian's disease, and alpha-1 antitrypsin deficiency. She had an equivocal ELIOT, but negative ASMA and negative AMA. CT imaging at that time was unremarkable, except for showing prominent fatty liver. Notably, AFP and CEA were normal, but CA-19-9 was very elevated to 1228. 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 At any rate, her LFTs were improving by discharge. The patient is readmitted at this time with symptoms of urinary tract infection, treated appropriately with antibiotics. She has some generalized weakness and ongoing chronic diarrhea with negative stool studies. Her LFTs were again noted to be elevated, though overall the trend over the past 3 weeks has been gradual improvement. Today, total bilirubin is 1.8, direct bilirubin 1.5, alkaline phosphatase only 113, AST down to 105, and ALT still normal at 31. The patient is not really having any abdominal pain, nausea, or vomiting. Abdominal ultrasound this admission essentially just showed poor visualization due to bowel gas. There is some small amount of fluid in the right upper quadrant. REVIEW OF SYSTEMS: Full review of systems, including constitutional; head, eyes, ears, nose, throat; GI; ; cardiovascular; respiratory; musculoskeletal; neurologic systems is negative, except as noted in the HPI. PAST MEDICAL HISTORY: As per HPI. PAST SURGICAL HISTORY: Right knee surgery, left shoulder replacement, and right hip arthroplasty. FAMILY HISTORY: Negative for GI malignancies. SOCIAL HISTORY: Last consumption of alcohol was in September 2019. No tobacco or drug use. ALLERGIES: NO KNOWN DRUG ALLERGIES. CURRENT MEDICATIONS: 1. Aspirin 81 mg daily. 2. Carvedilol. 3. Vitamin D3, 5000 units daily. 4. Vitamin B12, 1000 daily. 5. Folic acid 1 mg daily. 6. Montelukast. 7. Protonix 40 mg daily. 8. Florastor 250 mg daily. 9. Thiamine 100 mg daily. 10. Imodium, just now ordered p.r.n. 11. Ceftriaxone IV. 12. Ciprofloxacin, now finished. PHYSICAL EXAMINATION: VITAL SIGNS: Temperature 97.6, pulse 76, blood pressure 124/64, and 97% oxygen saturation on room air. GENERAL: A 69-year-old woman appearing frail but nontoxic, lying in bed comfortably, in no distress. SKIN: Mild jaundice. No rashes were palpable. HEENT: Eyes, mild scleral icterus. Extraocular movements intact. ENT, mucous membranes moist. No oral lesions. LYMPH: No submandibular or supraclavicular lymphadenopathy. Thyroid nontender to palpation. HEART: Regular rate and rhythm. LUNGS: Clear to auscultation bilaterally. ABDOMEN: Bowel sounds present. Soft, nontender to palpation throughout. EXTREMITIES: No peripheral edema. Vessels, radial pulses 2+ bilaterally. NEUROLOGIC: Cranial nerves 2 through 12 intact bilaterally. No focal deficits. LABORATORY STUDIES: Hemoglobin 9.2, WBC 9.8, platelets 194, and MCV 109. Sodium 141, potassium 3.7, BUN 6, creatinine 0.77, glucose 93, total bilirubin 1.8, direct bilirubin 1.5, alkaline phosphatase 113, AST 105, ALT 31, albumin 2.2, and lipase 59. BNP is elevated at 944. Urinalysis showed 11 to 20 wbc's. Urine culture is positive for Klebsiella and Enterococcus. Stool studies show negative FOBT. Negative Clostridium difficile and negative stool culture. IMAGING STUDIES: Abdominal ultrasound showed poor visualization due to bowel gas. ASSESSMENT/PLAN: 1. Elevated LFTs, likely representing resolving drug-induced liver injury. I reviewed her fairly extensive laboratory workup from her prior admission. ELIOT was equivocal, but with downtrending LFTs, I do not really suspect autoimmune hepatitis. Viral serologies were negative. EBV DNA was positive at that time, so that is a potential factor, but I would favor cholestatic drug-induced liver injury given the pattern of her LFT elevation and a gradual decline over the past 3 weeks since then, which is not unusual in resolving drug-induced liver injury. I see no evidence of significant liver dysfunction. 2. Elevated CA-19-9. Of more concern is the significantly elevated CA-19-9 level during recent admission which was up to 1228. CT imaging on her last admission did not show any evidence of liver or biliary malignancy, but I would favor repeat imaging with MRI. I have discussed this with Dr. Maynard. This could theoretically be done inpatient or outpatient, but we will go ahead and get that study now. 3. Diarrhea. Note the negative stool studies, there was no evidence of inflammatory bowel disease on colonoscopy in 2018, I think she can safely take Imodium as needed. 4. We will follow up results of MRI of the liver. Otherwise, the patient should follow up with Dr. Goldberg in the GI Clinic in the coming weeks. Job ID: [id number]
[2020-02-26] MEDS: Montelukast Sodium 10 mg Tablet PO SCH (20:14)
[2020-02-26] MEDS: Ciprofloxacin 500 MG TAB PO SCH (20:14)
[2020-02-27 04:39] LABS: #Basophils 0.1 thou/uL (0.0-0.2); #Eosinphils 0.3 thou/uL (0.0-0.7); #Lymphocytes 2.1 thou/uL (1.20-3.40); #Monocytes 0.8 thou/uL (0.11-0.59); #Neutrophils 6.8 thou/uL (1.40-6.50); %Basophils 0.7 % (0.0-1.0); %Eosinophils 3.2 % (0.0-10.0); %Lymphocytes 20.5 % (21.0-51.0); %Monocytes 7.9 % (0.0-10.0); %Neutrophils 67.7 % (42.0-75.0); Hemoglobin 9.2 g/dL (12.0-16.0); Mean Corpuscular HGB CONC 30.1 g/dL (32.0-36.0); Mean Corpuscular Hemoglobin 32.8 pg (27.0-31.0); Mean Platelet Volume 8.5 fL (7.4-10.4); Platelet Count 199 thou/uL (130-400); RBC Distribution Width 14.5 % (11.5-14.5); Red Blood Cell (RBC) Count 2.81 mill/uL (4.20-5.40); White Blood Cell (WBC) Count 10.1 thou/uL (4.8-10.8)
[2020-02-27 05:00] LABS: Anion Gap 8 mmol/L (10-20); BUN (Urea Nitrogen) 6 mg/dL (9.8-20.1); Calc. Creatinine Clearance 65 mL/min (70-130); Calcium 7.6 mg/dL (7.8-10.44); Carbon Dioxide 21 mmol/L (23-31); Chloride 114 mmol/L (98-107); Estimated GFR-MDRD 69; Glucose 94 mg/dL (80-115); Potassium 3.4 mmol/L (3.5-5.1); Sodium 140 mmol/L (136-145)
[2020-02-27 05:07] LABS: ALT (SGPT) 29 U/L (8-55); AST (SGOT) 99 U/L (5-34); Albumin 2.1 g/dL (3.4-4.8); Alkaline Phosphatase 110 U/L (40-110); Bilirubin, Direct 1.4 mg/dL (0.1-0.3); Bilirubin, Total 1.8 mg/dL (0.2-1.2); Protein, Total 5.7 g/dL (6.0-8.3)
[2020-02-27] MEDS: Ciprofloxacin 500 MG TAB PO SCH (05:16)
--- NOTE | 2020-02-27 07:42 | ULT ---
ABDOMINAL ULTRASOUND: CLINICAL HISTORY: Abnormal liver function tests.. COMPARISON: None. FINDINGS: Pancreas: Obscured by bowel gas. IVC: Poorly defined. Aorta: Poorly defined. Proximal aorta has a normal caliber. Liver:Increased echogenicity of the liver which may be due to hepatocellular disease versus hepatic s teatosis. Limited evaluation for hepatic masses and intrahepatic biliary dilatation. Right hepatic lobe measures 16.7 cm. Gallbladder: Increased echogenicity within the lumen of the gallbladder. Cerrato's sign:Negative. CBD: 0.35 cm common bile duct diameter. Portal vein: Patent. Appropriate directional flow. Right kidney: Right renal cortical thinning. No hydronephrosis.. Right kidney measuring 4.9 x 10.6 x 4.8 cm in length. Left kidney: Left renal cortical thinning. No hydronephrosis.. Left kidney measuring 4.6 x 9.8 x 4.2 cm in length. Spleen: Normal echotexture, measuring 11 cm. Free fluid: There is moderate ascites in the left lower quadrant and right lower quadrant. IMPRESSION: 1. Abnormal echotexture of the liver due to hepatic steatosis or hepatocellular disease. 2. Sludge within the lumen of the gallbladder. Transcribed Date/Time: 02/27/2020 8:00 AM
[2020-02-27] MEDS ORDERED: Potassium Chloride 20 MEQ TAB PO SCH (08:00)
[2020-02-27] MEDS: Folic Acid 1 MG TAB PO SCH (08:39)
[2020-02-27] MEDS: Aspirin 81 mg Enteric Coated Tablet PO SCH (08:39)
[2020-02-27] MEDS: Saccharomyces boulardii 250 MG CAP PO SCH (08:39)
[2020-02-27] MEDS: Thiamine 100 MG TAB PO SCH (08:39)
[2020-02-27] MEDS: Carvedilol 3.125 MG TAB PO SCH (08:39)
[2020-02-27] MEDS: Cyanocobalamin (Vitamin B-12) 1,000 MCG TAB PO SCH (08:39)
[2020-02-27] MEDS ORDERED: Magnevist 469MG/ML 20 ML VIAL ONE (10:21)
--- NOTE | 2020-02-27 11:10 | MRI ---
MRI ABDOMEN WITHOUT AND WITH CONTRAST: Date: 02/27/2020 COMPARISON: Gallbladder ultrasound dated 02/27/2020. HISTORY: Elevated LFTs and abdominal pain. TECHNIQUE: Multiplanar, multisequence MR images were obtained of the abdomen without and with IV contrast. FINDINGS: Exam is limited secondary to motion artifact. There is diffuse loss of signal on the liver on out-of- phase images consistent with fatty infiltration. The edge of the liver has a smooth contour without e vidence of cirrhosis. There is a small amount of ascites in the abdomen. High T1 signal within the gallbladder likely represents sludge. No abnormal enhancement is seen in th e liver. No biliary dilatation is seen. There is a 2.0 cm right renal cyst. The left kidney, adrenal glands, spleen, and pancreas are unremar kable. No abdominal adenopathy is seen. IMPRESSION: 1. Fatty liver. 2. Gallbladder sludge. 3. Ascites. 4. Right renal cyst. POS: EAA
--- NOTE | 2020-02-27 13:13 | PRG ---
DATE OF SERVICE: 02/27/2020 SUBJECTIVE: Ms. Mccormick says she is doing well today. She has no abdominal pain or nausea. She is eager for hospital discharge if possible. She just came back from MRI this morning. OBJECTIVE: VITAL SIGNS: Temperature 97.9, pulse 75, blood pressure 114/67, and 95% oxygen saturation on room air. GENERAL: No acute distress, lying in bed comfortably, in good spirits. HEART: Regular rate and rhythm. LUNGS: Clear to auscultation bilaterally. ABDOMEN: Bowel sounds present. Soft, nontender to palpation. EXTREMITIES: No peripheral edema. LABORATORY STUDIES: WBC 10.1, hemoglobin 9.2, and platelets 199. Sodium 140, potassium 3.4, BUN 6, and creatinine 0.82. LFTs all stable with total bilirubin 1.8, direct bilirubin down to 1.4, alkaline phosphatase down to 110, AST down to 99, ALT down to 29, and albumin is 2.1. IMAGING STUDIES: Repeat abdominal ultrasound from this morning showed increased echogenicity of the liver diffusely and gallbladder sludge. The spleen is normal. Common bile duct normal. Appropriate directional flow of patent portal vein. MRI of the abdomen demonstrates diffuse fatty infiltration of the liver, but with smooth contour and no evidence of cirrhosis. Small amount of abdominal ascites, gallbladder sludge and a right renal cyst. ASSESSMENT/PLAN: 1. Elevated LFTs, likely representing a drug induced liver injury and a cholestatic pattern from several weeks ago, gradually declining as expected. I see no evidence of significant liver dysfunction. 2. Elevated CA-19-9 this was from recent admission a few weeks ago when CA-19-9 level was elevated at 1228. CT imaging on her last admission did not show any evidence of liver or biliary malignancy now. MRI imaging of the liver from today also does not demonstrate any evidence of liver mass or biliary abnormality. This is good news and I discussed with the patient today. I do think it would be reasonable to follow up with Dr. Goldberg in a few weeks, repeat the CA-19-9 level at that time. 3. Diarrhea. She has negative stool studies. There was no evidence of inflammatory bowel disease on colonoscopy in 2018. Stick with Imodium as needed. GI will sign off, but please call back anytime with questions or concerns. Job ID: [id number]
[2020-02-27 15:48] VITALS: TEMP 98.4
[2020-02-27 16:11] VITALS: BP 119/59
--- NOTE | 2020-02-28 02:51 | DIS ---
DATE OF ADMISSION: 02/23/2020 DATE OF DISCHARGE: 02/27/2020 PRIMARY CARE PROVIDER: Shukri Christiansen MD. DISCHARGE DIAGNOSES: 1. Urinary tract infection. 2. Viral diarrhea. 3. Physical deconditioning. 4. Hypokalemia. 5. Dehydration. CONDITION OF PATIENT ON THE DAY OF DISCHARGE: Stable. I assessed Ms. Mccormick on the day of discharge. She denies any chest pain or shortness of breath. Diarrhea has improved. Vital signs are stable. S1 and S2 are heard, regular. Lungs are clear to auscultation bilaterally. CONSULTATIONS DURING THIS HOSPITALIZATION: Gastroenterology, Dr. Saleh. DISCHARGE MEDICATIONS: 1. Aspirin 81 mg daily. 2. Vitamin D3 5000 units daily. 3. Cranberry 425 mg daily. 4. Vitamin B12 of 1000 mcg daily. 5. Folic acid 1 mg daily. 6. Singulair 10 mg in the evening. 7. Omeprazole 20 mg daily. 8. Vitamin B1 100 mg daily. 9. Coreg 3.125 mg 2 times daily. 10. Ciprofloxacin 500 mg 2 times daily, 4 more doses. 11. Folic acid 1 mg daily. 12. Synthroid 112 mcg daily. 13. Imodium 2 mg as needed. 14. Florastor 250 mg daily, 2 more doses. HOSPITAL COURSE: Ms. Mccormick is a pleasant 69-year-old lady, who was admitted to [facility] on February 23, 2020 for diarrhea and urinary tract infection. She was also dehydrated. She received intravenous fluids and intravenous antibiotics. Urine cultures grew Klebsiella pneumoniae, which was of intermediate sensitivity to nitrofurantoin, but was otherwise pansensitive as well as presumptive enterococcus species. In terms of diarrhea, Clostridium difficile test was negative. She was started on Florastor and Imodium with improvement in her symptoms. She also had abnormal liver function tests. This is an issue that dates back over a month. She had a workup done in the past. She was seen by Gastroenterology Service during this hospitalization. Because, she had an elevated CA 19-9 level in the past, we obtained MRI of the abdomen with and without contrast. The study showed fatty liver, gallbladder sludge, ascites and right renal cyst. Abdominal ultrasound showed abnormal echotexture of the liver due to hepatic steatosis or hepatocellular disease. There was sludge within the lumen of the gallbladder. Her LFTs have improved compared to the past numbers. LABORATORY DATA: On the day of discharge, she has sodium of 140, potassium 3.4, which is being replaced, creatinine 0.82, total bilirubin 1.8, AST 99, ALT 29, and alkaline [place] [address], hemoglobin 9.2 and platelet count 199,000. Many thanks for allowing me to participate in your patient's care. Please feel free to contact me with any questions or concerns. She was physically deconditioned. She has been accepted to [facility] for further management. ACTIVITY: As tolerated. DIET: Low-sodium. TIME SPENT: Total amount of time spent coordinating this discharge: 32 minutes. DISCHARGE DESTINATION: [facility]. Job ID: [id number]
== END 2020-02-27 16:25 | DRG 690 ==
LOC: ERS 14:02 → 2NO 18:27
PROVIDERS: ADMIT Internal Medicine; ATTEND Internal Medicine
DX: N39.0 Urinary tract infection, site not specified (principal); N17.9 Acute kidney failure, unspecified; R18.8 Other ascites; I10 Essential (primary) hypertension; F32.9 Major depressive disorder, single episode, unspecified; E86.0 Dehydration; R79.89 Other specified abnormal findings of blood chemistry; E87.6 Hypokalemia; Z96.612 Presence of left artificial shoulder joint; Z96.641 Presence of right artificial hip joint; A08.4 Viral intestinal infection, unspecified; B96.1 Klebsiella pneumoniae [K. pneumoniae] as the cause of diseases classified elsewhere; K76.0 Fatty (change of) liver, not elsewhere classified; N28.1 Cyst of kidney, acquired; B95.2 Enterococcus as the cause of diseases classified elsewhere; K82.8 Other specified diseases of gallbladder; Z79.899 Other long term (current) drug therapy; Z79.82 Long term (current) use of aspirin; E03.9 Hypothyroidism, unspecified
CPT/HCPCS: 36415; 51701; 74183; 76705; 80048; 80053; 80076; 81003; 81015; 82274; 83605; 83690; 83880; 84484; 85025; 86301; 87045; 87046; 87077; 87086; 87186; 87324; 87427; 87449; 93005; 93975; A4353; A9579; J0696; J3490

== ENCOUNTER 2020-03-11 14:02 | Inpatient (IN) | payer MEDICARE, OTHER ==
[~2020-03-11 14:02] MED LIST changes: +EPINEPHrine 1 MG/10 ML Abboject SYRINGE ONE; -Iopamidol-370 76% 500 ML 1 ML ONE; +Sodium Bicarb 50 MEQ/50 ML Abboject 8.4% SYRINGE ONE
[2020-03-11] MEDS ORDERED: Acetaminophen 650 MG Suppository ONE (14:33)
[2020-03-11] MEDS ORDERED: Acetaminophen 325 MG Suppository ONE (14:33)
[2020-03-11 14:38] LABS: #Basophils 0.1 thou/uL (0.0-0.2); #Eosinphils 0.1 thou/uL (0.0-0.7); #Lymphocytes 4.3 thou/uL (1.20-3.40); #Monocytes 0.7 thou/uL (0.11-0.59); %Basophils 0.5 % (0.0-1.0); %Eosinophils 0.6 % (0.0-10.0); %Lymphocytes 22.2 % (21.0-51.0); %Monocytes 3.8 % (0.0-10.0); %Neutrophils 72.9 % (42.0-75.0); Hemoglobin 8.9 g/dL (12.0-16.0); Mean Corpuscular HGB CONC 32.2 g/dL (32.0-36.0); Mean Corpuscular Hemoglobin 33.2 pg (27.0-31.0); Mean Platelet Volume 8.7 fL (7.4-10.4); Platelet Count 217 thou/uL (130-400); RBC Distribution Width 14.2 % (11.5-14.5); Red Blood Cell (RBC) Count 2.67 mill/uL (4.20-5.40); White Blood Cell (WBC) Count 19.2 thou/uL (4.8-10.8)
[2020-03-11 15:01] LABS: ALT (SGPT) 14 U/L (8-55); AST (SGOT) 59 U/L (5-34); Albumin 4.1 g/dL (3.4-4.8); Alkaline Phosphatase 104 U/L (40-110); Anion Gap 14 mmol/L (10-20); BUN (Urea Nitrogen) 17 mg/dL (9.8-20.1); Bilirubin, Total 2.1 mg/dL (0.2-1.2); Calc. Creatinine Clearance 0 mL/min (70-130); Calcium 8.7 mg/dL (7.8-10.44); Carbon Dioxide 17 mmol/L (23-31); Chloride 111 mmol/L (98-107); Estimated GFR-MDRD 15; Globulin 3.1 g/dL (2.4-3.5); Glucose 149 mg/dL (80-115); Potassium 4.4 mmol/L (3.5-5.1); Protein, Total 7.2 g/dL (6.0-8.3); Sodium 138 mmol/L (136-145)
[2020-03-11] MEDS ORDERED: Cefepime 2 GM VIAL ONE (15:02)
[2020-03-11 15:09] LABS: Actual Bicarbonate (HCO3a) 14.2 mEq/L (22-28); Analyzer IN Cardio ER; Base Excess (BEa) -10.6 mEq/L (-2.0 to +3.0); CO2 Tension 27.8 mmHg (35.0-45.0); Calcium, Ionized (arterial) 1.14 mmol/L (1.12-1.30); Hemoglobin (Hb) 8.9 g/dL (12.0-16.0); O2 Tension (PaO2), arterial 70.2 mmHg (> 70.0); Potassium - ABG Lab 4.32 mmol/L (3.70-5.30); pH, Arterial 7.33 (7.35-7.45)
[2020-03-11 15:10] LABS: Puncture Site LRA
[2020-03-11] MEDS ORDERED: Vancomycin HCl 1.75 GM in Sodium Chloride 0.9% 500 ML IVPB SCH (15:15)
[2020-03-11 15:17] LABS: Bilirubin Negative (Negative); Blood, Urine Negative (Negative); Clarity Turbid (Clear); Glucose, Urine (Dipstick) Normal (Negative); Leukocyte 500 Leu/uL (Negative); Nitrite Negative (Negative); Protein, Urine (Dipstick) Negative (Neg-Trace); Squamous Epithelial 0-3 HPF (0-3); Urobilinogen Normal mg/dL (Less than 2)
[2020-03-11 15:21] LABS: CKMB 0.5 ng/mL (0-6.6)
[2020-03-11 15:22] LABS: Bacteria/HPF 2+ HPF (None Seen); Yeast-Budding 2+ HPF (None Seen)
--- NOTE | 2020-03-11 16:00 | RAD ---
RADIOGRAPH CHEST 1 VIEW: DATE: 03/11/2020 TIME: 3:20 PM HISTORY: 69-year-old female with dyspnea COMPARISON: 03/11/2020 12:25 PM FINDINGS: There continues to be severe bilateral mixed interstitial and alveolar infiltrates. These appear to h ave slightly improved since the prior study, but this apparent difference may or may not be due to technical differences. No cardiomegaly. No pneumothorax. IMPRESSION: Severe bilateral infiltrates, perhaps slightly improved since last midnight.
[2020-03-11 16:42] LABS: INR-International Normal Ratio 1.6; PTT 38.8 sec (22.9-36.1); Prothrombin Time 18.8 sec (12.0-14.7)
[2020-03-11 16:49] LABS: ALT (SGPT) 14 U/L (8-55); AST (SGOT) 57 U/L (5-34); Albumin 4.1 g/dL (3.4-4.8); Alkaline Phosphatase 105 U/L (40-110); Bilirubin, Direct 1.5 mg/dL (0.1-0.3); Bilirubin, Total 2.1 mg/dL (0.2-1.2)
[2020-03-11 16:57] LABS: D-Dimer Test 6.96 *mcg/mL (0.27-0.43)
[2020-03-11 17:03] LABS: #Eosinphils 0.1 thou/uL (0.0-0.7); #Lymphocytes 3.2 thou/uL (1.20-3.40); #Monocytes 0.7 thou/uL (0.11-0.59); %Basophils 0.1 % (0.0-1.0); %Eosinophils 0.3 % (0.0-10.0); %Lymphocytes 16.8 % (21.0-51.0); %Monocytes 3.6 % (0.0-10.0); %Neutrophils 79.2 % (42.0-75.0); Hemoglobin 8.3 g/dL (12.0-16.0); Mean Corpuscular HGB CONC 32.3 g/dL (32.0-36.0); Mean Corpuscular Hemoglobin 33.4 pg (27.0-31.0); Mean Platelet Volume 8.5 fL (7.4-10.4); Platelet Count 197 thou/uL (130-400); RBC Distribution Width 14.1 % (11.5-14.5); Red Blood Cell (RBC) Count 2.49 mill/uL (4.20-5.40); White Blood Cell (WBC) Count 18.9 thou/uL (4.8-10.8)
--- NOTE | 2020-03-11 17:06 | HP ---
CHIEF COMPLAINT: Fever. HISTORY OF PRESENT ILLNESS: A 69-year-old female with recent discharge on February 26 after being treated for UTI and diarrhea with Clostridium difficile negative, presenting back from the rehab. She had shortness of breath at rehab and fever of 102, suspected CHF exacerbation with severe bilateral infiltrates, slightly improved since last midnight. Fever of 102, tachycardia with a rate of 130 and respiratory rate of 40, being admitted. She was in BiPAP in the ER. The patient is quite agitated during my exam and she removed her mask. White count elevated at around 19.2. The patient is completely incoherent and not able to get any history. So, during my exam, she was not coherent. Hypoxia also with 88% on room air. She does have a history of CHF. REVIEW OF SYSTEMS: Not obtainable. PAST MEDICAL HISTORY: 1. History of CHF. 2. Hypertension. 3. Recent Clostridium difficile negative diarrhea. 4. COPD. 5. Hypothyroidism. MEDICATIONS: 1. Thiamine 100 mg daily. 2. Florastor 250 mg daily. 3. Omeprazole 20 mg daily. 4. Singulair 10 mg daily. 5. Imodium 2 mg as needed. 6. Levothyroxine 112 mcg daily. 7. Folic acid 1 mg daily. 8. B12, 1000 mcg daily. 9. Coreg 3.125 mg twice a day. 10. Aspirin 81 mg daily. 11. Cipro given 500 mg daily. 12. Vitamin D3 daily. SOCIAL HISTORY: Not obtainable, but it appears she is currently in the rehab for deconditioning. FAMILY HISTORY: Noncontributory. PHYSICAL EXAMINATION: VITAL SIGNS: Her blood pressure is 145/97, pulse 93, respirations 30, sats 100% with the BiPAP, and her temperature was 101.7. GENERAL: She is alert and oriented x1. HEART: Tachycardia. LUNGS: Crackles and rales. ABDOMEN: Soft, nontender, and nondistended. Good bowel sounds. EXTREMITIES: Did not appreciate any pitting edema. LABORATORY DATA: Currently, her labs are pending. WBC is 19,000. Rest of the labs are pending currently. Chest x-ray shows bilateral interstitial infiltrates concerning for COVID. IMPRESSION AND PLAN: A 69-year-old female with recent history of Clostridium difficile negative diarrhea, undergoing rehab, presenting with shortness of breath, fever, and elevated white count. Sepsis with fever and healthcare-associated pneumonia. Hypoxia. Acute hypoxic respiratory failure, requiring BiPAP intervention. The patient will be admitted in the IMCU. Continue with BiPAP and wean off as her sat improves. I do not see any actual edema or central congestion in the chest x-ray, but infiltrate, so more of healthcare-associated pneumonia rather than congestive heart failure exacerbation. We will get a D-dimer as well to evaluate further. Her last creatinine is around 3. Currently, her chemistry panel is pending. We will follow up on that. Also, high concern for COVID. We will get a ferritin, liver function test, D-dimer, coag panel and rule out COVID. Continue with vancomycin, request the pharmacy to dose, and Zosyn renally dosed to cover for healthcare-associated pneumonia. We will follow the culture results. Rest of the management based on clinical course. Job ID: [id number]
[2020-03-11] MEDS ORDERED: Acetaminophen 325 MG TAB PO PRN ×2 (17:24→19:57)
[2020-03-11] MEDS ORDERED: Ondansetron PF 4 MG/2 ML Vial IVP PRN (17:24)
[2020-03-11] MEDS ORDERED: Ondansetron ODT 4 MG TAB SL PRN (17:24)
[2020-03-11 17:26] LABS: Anion Gap 15 mmol/L (10-20); BUN (Urea Nitrogen) 17 mg/dL (9.8-20.1); Calc. Creatinine Clearance 0 mL/min (70-130); Carbon Dioxide 13 mmol/L (23-31); Chloride 112 mmol/L (98-107); Estimated GFR-MDRD 16; Glucose 185 mg/dL (80-115); Potassium 4.4 mmol/L (3.5-5.1); Sodium 136 mmol/L (136-145)
[2020-03-11] MEDS ORDERED: Sodium Chloride 0.9% 1,000 ML IV SCH ×2 (19:30→19:34)
[2020-03-11] MEDS ORDERED: Lorazepam 2 MG/ML VIAL SLOW IVP PRN ×2 (19:39→22:20)
[2020-03-11] MEDS ORDERED: Furosemide 20 MG/2 ML VIAL SLOW IVP SCH (19:45)
[2020-03-11] MEDS ORDERED: Albuterol 200 PUFF (6.7GM INHALER) INH PRN (19:46)
[2020-03-11] MEDS ORDERED: Loperamide HCl 2 MG CAP PO PRN (19:59)
[2020-03-11] MEDS ORDERED: Senokot S 8.6-50 MG TAB PO PRN (20:00)
[2020-03-11] MEDS: Montelukast Sodium 10 mg Tablet PO SCH (20:30)
[2020-03-11] MEDS: Piperacillin/Tazobactam 2.25 GM in Sodium Chloride 0.9% 100 ML IVPB SCH (20:31)
[2020-03-11] MEDS ORDERED: Vancomycin 1 GM in Premix Bag 1 BAG IVPB SCH (21:00)
[2020-03-11] MEDS: Furosemide 100 MG/10 ML VIAL SLOW IVP SCH (22:00)
[2020-03-11] MEDS ORDERED: Sodium Bicarbonate 150 MEQ in Dextrose 5% in Water 1,000 ML IV SCH (22:15)
[2020-03-11] MEDS ORDERED: Ventilator Sedation Protocol 1 EACH FS SCH (22:15)
[2020-03-11] MEDS ORDERED: CCU Electrolyte Replacement 1 EACH IVPB ONE (22:15)
[2020-03-11] MEDS ORDERED: Propofol BOLUS 1,000 MG/100 ML VIAL IV PRN (22:20)
[2020-03-11] MEDS ORDERED: fentaNYL Citrate/PF 2,000 MCG in Sodium Chloride 0.9% 60 ML IV SCH (22:20)
[2020-03-11] MEDS ORDERED: DISCONTINUE PREVIOUS NARCOTIC PAIN MEDICATIONS AND BENZODIAZEPINES FS SCH (22:20)
[2020-03-11] MEDS ORDERED: Fentanyl BOLUS 250 ML IVPB PRN (22:20)
[2020-03-11] MEDS ORDERED: Morphine 2 MG/ML SYRINGE SLOW IVP PRN (22:20)
[2020-03-11] MEDS ORDERED: Propofol 1,000 MG/100 ML VIAL IV PRN (22:20)
--- NOTE | 2020-03-11 22:20 | PDOC.EVN ---
Event Note - Event Note Event Note: Code blue note Code called, arrived to bedside, obtained ROSC and patinet intubated. COVID positive. succinylcholine, etomidate, epinephrine given. Got 1 round CPR starting at 2155. ROSC acheived and purposeful movement seen, no hypothermia indicated. moved to CCU. Appreciate nursing and RT care. labs and CXR pending
[2020-03-11] MEDS ORDERED: Potassium Chloride 20 MEQ TAB PO PRN (22:21)
[2020-03-11] MEDS ORDERED: PHOS-NAK 1 PKT PACK PO PRN ×2 (22:21)
[2020-03-11] MEDS ORDERED: Magnesium 2 GM/50 ML 2 GM in Premix Bag 1 BAG IVPB PRN (22:21)
[2020-03-11] MEDS ORDERED: Magnesium Oxide 400 MG TAB PO PRN ×2 (22:21)
[2020-03-11] MEDS ORDERED: Potassium Phosphate 9 MMOL in Sodium Chloride 0.9% 100 ML IVPB PRN (22:21)
[2020-03-11] MEDS ORDERED: CCU ELECTROLYTE REPLACEMENT PROTOCOL FS PRN (22:21)
[2020-03-11] MEDS ORDERED: Potassium Chloride 40 MEQ in Premix Bag 1 BAG IVPB PRN (22:21)
[2020-03-11] MEDS ORDERED: Potassium Chloride 40 MEQ in Sodium Chloride 0.9% 250 ML 250 ML IVPB PRN (22:21)
[2020-03-11] MEDS ORDERED: Potassium Phosphate 15 MMOL in Sodium Chloride 0.9% 250 ML 250 ML IV PRN (22:21)
[2020-03-11] MEDS ORDERED: Potassium Phosphate 12 MMOL in Sodium Chloride 0.9% 250 ML 250 ML IV PRN (22:21)
[2020-03-11 22:54] LABS: Actual Bicarbonate (HCO3a) 13.2 mEq/L (22-28); Base Excess (BEa) -16.1 mEq/L (-2.0 to +3.0); CO2 Tension 46.4 mmHg (35.0-45.0); Carboxyhemoglobin (COHb) 0.5 gm% (0.0-3.0); Hemoglobin (Hb) 9.4 g/dL (12.0-16.0); Potassium - ABG Lab 5.13 mmol/L (3.70-5.30)
[2020-03-11] MEDS ORDERED: Cefepime 2 GM in Sodium Chloride 0.9% 100 ML IVPB SCH (23:00)
--- NOTE | 2020-03-11 23:00 | CON ---
DATE OF CONSULTATION: 03/11/2020 SERVICE: Nephrology. REASON FOR CONSULTATION: Renal failure. REQUESTING PHYSICIAN: Natasha Ramsey MD HISTORY OF PRESENT ILLNESS: History is grossly limited as the patient in respiratory distress, has BiPAP on. The patient recently discharged from this hospital to acute rehab, was readmitted from acute rehab due to worsening shortness of breath and fever. Chest x-ray showed bilateral infiltrates. The patient also had sepsis criteria and was started on broad-spectrum antibiotics. She was also found to have elevated creatinine of 3.02 on presentation, hence the Nephrology consult. PAST MEDICAL HISTORY: 1. Hypertension. 2. Congestive heart failure. 3. Recent treatment for C diff. PAST SURGICAL HISTORY: 1. Hysterectomy. 2. Right knee surgery. 3. Left shoulder replacement. 4. Right hip replacement. FAMILY HISTORY: Could not be obtained due to the patient's condition. SOCIAL HISTORY: The patient was just discharged to acute rehab from where she was readmitted. ALLERGIES: NO KNOWN DRUG ALLERGIES REPORTED. MEDICATIONS: Prior to hospital medications: 1. Vitamin D3 5000 units daily. 2. Folic acid 1 mg p.o. daily. 3. Vitamin C with cranberry daily. 4. Omeprazole 40 mg daily. 5. Aspirin 81 mg daily. 6. Montelukast 10 mg daily. 7. Carvedilol 3.25 mg p.o. b.i.d. 8. Cyanocobalamin 1000 mcg daily. 9. Levothyroxine 112 mcg daily. 10. MiraLAX 17 g daily. 11. Potassium chloride 20 mEq daily. 12. Thiamine 100 mg p.o. daily. 13. Clonidine p.r.n. REVIEW OF SYSTEMS: Could not be obtained due to the patient's condition. PHYSICAL EXAMINATION: VITAL SIGNS: Temperature 99.1, pulse 90, respiratory rate 30, SpO2 95% on 60% FiO2 via BiPAP, and blood pressure 138/70. GENERAL: Elderly female, in respiratory distress. BiPAP is in place. HEENT: Normocephalic and atraumatic. NECK: Supple. No obvious JVD appreciated. CARDIOVASCULAR: Regular rhythm and rate. RESPIRATORY: Coarse crackles in both lung barker. Use of accessory muscle is noted. GI: Full, soft, nondistended with normal bowel sounds. UROGENITAL: Barrett catheter is in place, draining some urine. EXTREMITIES: Grossly normal looking with no obvious edema. SKIN: Cold extremities noted. [employer]: The patient is awake, oriented x2 at least. Moves all extremities. DIAGNOSTIC DATA: Most current CBC showed WBC count of 19.9, hemoglobin of 8.3, and platelet of 197. Blood gas showed pH 7.3, pCO2 of 27.8, pO2 of 70.2, ionized calcium 1.14. Most recent chemistry showed sodium 136, potassium 4.4, chloride 112, CO2 13, BUN 17, creatinine 2.94, glucose 185, calcium 8.0. Lactic acid is 2.4. Urinalysis showed light yellow turbid urine with pH of 5.0, specific gravity of 1.008, negative protein, ketone, blood, nitrite, and bilirubin. Leukocyte esterase is positive. Microscopy showed 7-10 rbc's and 4-6 wbc's with 2+ bacteria. Chest x-ray performed on presentation showed severe bilateral infiltrates, reportedly mildly improved since last night. Echocardiogram performed on February 04 showed preserved EF of 60% to 65% with diastolic dysfunction. Cardiac markers showed CK-MB of 0.5, troponin of 0.122, and BNP of 3635. ASSESSMENT: 1. Acute kidney injury. Creatinine has gone up from baseline of 0.7 to 0.8 with last creatinine of 0.82 on March 01 to 3.02 on presentation. This most likely is due to hemodynamic factors related to cardiac decompensation as well as sepsis. 2. Metabolic acidosis: Due to acute kidney injury, sepsis as well as some contribution from hyperchloremia. 3. Sepsis: Pneumonia is a concern. COVID is another concern. 4. Bilateral infiltrates: Etiology is unclear. Congestive heart failure remains a concern as well as pneumonia. BNP elevation is consistent with congestive heart failure. PLAN: 1. We will discontinue normal saline due to worsening metabolic acidosis. 2. We will give Lasix 80 mg x1 due to bilateral coarse crackles and respiratory distress. 3. We will also start the patient on sodium bicarbonate at 50 mL/h. 4. We will also get LDH and procalcitonin as well as urine electrolytes. 5. We will monitor urine output and repeat renal function test in the morning. Further treatment to follow depending on hospital course. Many thanks for involving us in the care of this patient. Job ID: [id number]
[2020-03-11 23:07] LABS: O2 Tension (PaO2), arterial 44.2 mmHg (> 70.0); pH, Arterial 7.07 (7.35-7.45)
[2020-03-11 23:08] LABS: Puncture Site RRA
[2020-03-11] MEDS ORDERED: Vecuronium 10 MG VIAL ONE (23:29)
[2020-03-11] MEDS ORDERED: Sterile Water 10 ML ONE (23:36)
[2020-03-11] MEDS ORDERED: Norepinephrine 8 MG/0.9% NS 250 ML ONE (23:37)
[2020-03-12] MEDS: Furosemide 100 MG/10 ML VIAL SLOW IVP SCH (00:30)
[2020-03-12] MEDS ORDERED: Sterile Water 10 ML VIAL FS PRN (00:40)
[2020-03-12 00:45] LABS: ALT (SGPT) 17 U/L (8-55); AST (SGOT) 64 U/L (5-34); Albumin 3.3 g/dL (3.4-4.8); Alkaline Phosphatase 100 U/L (40-110); Anion Gap 17 mmol/L (10-20); BUN (Urea Nitrogen) 19 mg/dL (9.8-20.1); Bilirubin, Total 2.1 mg/dL (0.2-1.2); Calc. Creatinine Clearance 18 mL/min (70-130); Calcium 7.9 mg/dL (7.8-10.44); Carbon Dioxide 11 mmol/L (23-31); Chloride 112 mmol/L (98-107); Estimated GFR-MDRD 15; Globulin 2.9 g/dL (2.4-3.5); Glucose 179 mg/dL (80-115); Potassium 4.9 mmol/L (3.5-5.1); Protein, Total 6.2 g/dL (6.0-8.3); Sodium 135 mmol/L (136-145)
[2020-03-12 00:49] LABS: Lactic Acid 4.3 mmol/L (0.5-2.2)
[2020-03-12 00:53] LABS: Anisocytosis SLIGHT = 6-15 cells (100X) (0-5/hpf); Band 21 % (5-11); Hemoglobin 9.1 g/dL (12.0-16.0); Lymphocytes 14 % (21-51); MDiff Complete? YES; Macrocytosis SLIGHT = 6-15 cells (100X) (0-5/hpf); Mean Corpuscular HGB CONC 30.4 g/dL (32.0-36.0); Mean Corpuscular Hemoglobin 32.8 pg (27.0-31.0); Mean Platelet Volume 8.4 fL (7.4-10.4); Monocytes 2 % (0-10); Neutrophil 62 % (42-75); Platelet Count 192 thou/uL (130-400); RBC Distribution Width 14.3 % (11.5-14.5); Red Blood Cell (RBC) Count 2.76 mill/uL (4.20-5.40); White Blood Cell (WBC) Count 8.2 thou/uL (4.8-10.8)
--- NOTE | 2020-03-12 02:01 | CON ---
DATE OF CONSULTATION: 03/12/2020 Date of Service 03/11/2020 This is a 70 minutes critical care time. CONSULTING PHYSICIAN: Marjorie Vanessa. HISTORY OF PRESENT ILLNESS: This is a 69-year-old female, who was admitted to the floor earlier today on BiPAP. She was admitted with a presumptive diagnosis of congestive heart failure, question pneumonia. She had been at a rehab facility prior to this. She had just been in the hospital with urinary tract infection. There was note of a fever of 102. The patient is currently in a COVID rule out protocol. PAST MEDICAL HISTORY: 1. CHF. 2. Hypertension. 3. Diarrhea. 4. Chronic obstructive pulmonary disease. 5. Hypothyroidism. PAST SURGICAL HISTORY: 1. Hysterectomy. 2. Right knee surgery. 3. Left shoulder surgeries. 4. Right hip replacement. FAMILY MEDICAL HISTORY: Not known. SOCIAL HISTORY: Nonsmoker. Does not consume alcohol. ALLERGIES: NONE. MEDICATIONS: Listed, reviewed in chart. REVIEW OF SYSTEMS: Unobtainable as the patient is currently on a mechanical ventilation. PHYSICAL EXAMINATION: VITAL SIGNS: After being placed in a prone position pulse is 90, blood pressure 139/75, O2 saturation 95%, and respiratory rate 25. HEENT: Unremarkable. NECK: No adenopathy or JVD. LUNGS: Clear. CARDIOVASCULAR: S1 and S2. Regular. ABDOMEN: Soft. EXTREMITIES: No edema. LABORATORY DATA: Sodium 136, potassium 4.4, chloride 112, CO2 of 13, BUN 17, creatinine is 2.9, glucose 185, and lactate 2.4. BNP is 3635. C-reactive protein 6.9 and procalcitonin 1.23. ABG; pH of 7.07, pCO2 of 46, and pO2 of 44. White blood cell count 18.9, hematocrit 25.7, and platelet count 197. Chest x-ray shows diffuse bilateral infiltrates favoring upper lobes bat wing appearance looks like appearance of congestive heart failure. ASSESSMENT: 1. Pulmonary edema, congestive heart failure versus pneumonia. 2. Febrile illness - rule out COVID-19 infection versus nosocomial acquired infection. 3. Other medical problems as listed above. PLAN: 1. The patient was intubated during the code blue. She was placed on mechanical ventilation. Because of persistent desaturation in supine position, I have gone ahead and placed her in a prone position. Her oxygenation did improve while she is in prone position. She will be placed on norepinephrine for hypertension. She will be placed on dobutamine to help with contractility. Unfortunately, we will not get an echo until she has been fully ruled out for COVID. 2. Agree with diuretics prescribed by Nephrology. Job ID: [id number] REBEL
--- NOTE | 2020-03-12 02:03 | OP ---
DATE OF PROCEDURE: 03/12/2020 Date of Service: 03/11/2020 PROCEDURE PERFORMED: Central line placement. PREOPERATIVE DIAGNOSIS: Poor IV access. POSTOPERATIVE DIAGNOSIS: Necessity for IV access for vasopressor administration. ANESTHESIA: None. DESCRIPTION OF PROCEDURE: This was done on emergent basis for the above reasons. The patient was placed in the supine position. The right groin was cleansed with chlorhexidine, draped sterilely. Using real-time ultrasound, the right femoral vein was cannulated on first attempt. Central line was placed via the modified Seldinger technique without difficulty. Three ports flushed with venous blood. The line was sutured in position and dressed sterilely. Job ID: [id number] MTDD
[2020-03-12] MEDS: DOBUTamine 500 mg/250 ml 250 ML IVPB SCH (02:28)
[2020-03-12] MEDS: Vecuronium 10 MG VIAL IVP PRN ×2 (02:29→09:33)
[2020-03-12 02:43] LABS: CKMB 1.8 ng/mL (0-6.6)
[2020-03-12] MEDS ORDERED: Sodium Chloride 0.9% 1,000 ML IV SCH (03:30)
[2020-03-12 04:30] LABS: Creatinine, Urine 27.51 mg/dL (47-110)
[2020-03-12] MEDS: Levothyroxine Sodium 112 MCG TAB PO SCH (06:33)
[2020-03-12] MEDS: Piperacillin/Tazobactam 2.25 GM in Sodium Chloride 0.9% 100 ML IVPB SCH ×3 (06:33→23:05)
--- NOTE | 2020-03-12 07:27 | RAD ---
CHEST 1 VIEW: Date: 03/11/2020 HISTORY: Ventilated patient. COMPARISON: Radiograph same date. FINDINGS: Patient intubated with endotracheal tube tip just above the clavicles. Enteric tube tip below the elton phragm, but out of field of view. Extensive air space opacities throughout the lungs. Small effusions . IMPRESSION: Lines and tubes as above. Diffuse air space opacities are similar. Multifocal pneumonia versus ARDS i s most likely. POS: HOME
[2020-03-12] MEDS ORDERED: Furosemide 20 MG/2 ML VIAL SLOW IVP SCH (08:00)
[2020-03-12] MEDS ORDERED: Carvedilol 3.125 MG TAB PO SCH (08:00)
[2020-03-12] MEDS ORDERED: Famotidine/PF 20 mg/2ml Vial SLOW IVP SCH (09:00)
--- NOTE | 2020-03-12 09:15 | PRG ---
DATE OF SERVICE: 03/12/2020 35 additional minutes of critical care time. SUBJECTIVE: The patient remains intubated on mechanical ventilation in a prone position. OBJECTIVE: VITAL SIGNS: Temperature 96.4, pulse 86, blood pressure 87/47. 24-hour intake 442, output 515. HEENT: Unremarkable. NECK: No JVD. LUNGS: Improved aeration, less crackles. CARDIAC: S1, S2. Regular. ABDOMEN: Soft. EXTREMITIES: No edema. She is currently on dobutamine drip and a norepinephrine drip. LABORATORY DATA: ABG pending. White blood cell count 8.2, hematocrit 29.8, and platelet count 192. Sodium 135, potassium 4.9, chloride 112, CO2 of 11, BUN 19, creatinine 3.0, glucose 179. Lactate 4.3, troponin 0.635. ASSESSMENT: 1. Acute respiratory failure, requiring mechanical ventilation. 2. Pneumonia versus congestive heart failure-I am favoring congestive heart failure in this case. PLAN: 1. Await results of ABG. 2. The patient has been placed on a bicarbonate drip for acidosis. 3. Continue dobutamine. 4. Continue antibiotics. 5. Prognosis is guarded. 6. Await COVID-19 test. Job ID: [id number]
[2020-03-12] MEDS: Enoxaparin Sodium 30 MG/0.3 ML SYRINGE SC SCH (09:33)
[2020-03-12] MEDS: Furosemide 40 MG/4 ML VIAL SLOW IVP SCH ×2 (09:34→19:40)
[2020-03-12] MEDS: Cyanocobalamin (Vitamin B-12) 1,000 MCG TAB PO SCH (09:34)
[2020-03-12] MEDS: Saccharomyces boulardii 250 MG CAP PO SCH (09:34)
[2020-03-12] MEDS: Folic Acid 1 MG TAB PO SCH (09:34)
[2020-03-12] MEDS: Thiamine 100 MG TAB PO SCH (09:34)
[2020-03-12] MEDS: Aspirin 81 mg Enteric Coated Tablet PO SCH (09:34)
[2020-03-12 09:57] LABS: Base Excess (BEa) -11.8 mEq/L (-2.0 to +3.0); CO2 Tension 26.3 mmHg (35.0-45.0); Calcium, Ionized (arterial) 1.13 mmol/L (1.12-1.30); Carboxyhemoglobin (COHb) 0.3 gm% (0.0-3.0); Hemoglobin (Hb) 10.2 g/dL (12.0-16.0); O2 Tension (PaO2), arterial 95.6 mmHg (> 70.0); Potassium - ABG Lab 3.52 mmol/L (3.70-5.30); pH, Arterial 7.31 (7.35-7.45)
[2020-03-12 09:58] LABS: Puncture Site RR
[2020-03-12 09:59] LABS: ALV-art Gradient 584.525 (0-20)
[2020-03-12 11:18] LABS: SARS-CoV-2 MS2 Positive; SARS-CoV-2 N Gene Negative; SARS-CoV-2 S Gene Negative; SARS-CoV-2 orf1ab Negative
[2020-03-12] MEDS: Norepinephrine 8 MG/0.9% NS 250 ML IVPB PRN ×2 (11:21→19:41)
[2020-03-12 11:30] LABS: Hemoglobin 9.9 g/dL (12.0-16.0); Mean Corpuscular HGB CONC 31.9 g/dL (32.0-36.0); Mean Platelet Volume 8.8 fL (7.4-10.4); Platelet Count 155 thou/uL (130-400); RBC Distribution Width 14.2 % (11.5-14.5); Red Blood Cell (RBC) Count 2.99 mill/uL (4.20-5.40); White Blood Cell (WBC) Count 4.2 thou/uL (4.8-10.8)
[2020-03-12 11:34] LABS: Anion Gap 16 mmol/L (10-20); BUN (Urea Nitrogen) 21 mg/dL (9.8-20.1); Calc. Creatinine Clearance 19 mL/min (70-130); Calcium 7.7 mg/dL (7.8-10.44); Carbon Dioxide 15 mmol/L (23-31); Chloride 111 mmol/L (98-107); Estimated GFR-MDRD 16; Glucose 116 mg/dL (80-115); Potassium 3.5 mmol/L (3.5-5.1); Sodium 138 mmol/L (136-145)
[2020-03-12 11:49] LABS: Band 51 % (5-11); Eosinophils 2 % (0-10); Lymphocytes 29 % (21-51); MDiff Complete? YES; Macrocytosis SLIGHT = 6-15 cells (100X) (0-5/hpf); Metamyelocyte 2 % (0-0); Monocytes 7 % (0-10); Neutrophil 8 % (42-75); Platelet Morphology Comment Appears Adequate; Toxic Granulation SLIGHT
[2020-03-12 13:05] LABS: Troponin I 0.187 ng/mL (< 0.028)
--- NOTE | 2020-03-12 13:31 | PDOC.HOSPP ---
- Subjective Encounter Date: 03/12/20 Encounter Time: 10:20 Subjective: pt coded last night around 1 am, intubated, on vent, in prone position, on levophed and morphine, BP 87/46; lasix, HCO3 drip and urnie output 40-60ml/hr. family been updated by MELISSA. d/w RN. - Objective Vital Signs & Weight: Vital Signs (12 hours) Pulse Resp BP Pulse Ox 03/12/20 11:27 87 92/45 L 03/12/20 10:00 25 H 03/12/20 08:00 25 H 03/12/20 07:15 84 93/46 L 97 03/12/20 06:00 25 H 03/12/20 04:00 25 H 03/12/20 02:15 83 93/60 Weight Weight 146 lb 9.718 oz Most Recent Monitor Data Heart Rate from ECG 86 NIBP 90/54 NIBP BP-Mean 66 Respiration from ECG 25 SpO2 99 I&O: 03/11/20 03/12/20 03/13/20 06:59 06:59 06:59 Intake Total 442.8 Output Total 515 220 Balance -72.2 -220 Result Diagrams: 03/12/20 10:58 03/12/20 10:58 Hospitalist ROS - Medication Medications: Active Medications Generic Name Dose Route Start Last Admin Trade Name Irene PRN Reason Stop Dose Admin Aspirin 81 mg 03/12/20 09:00 03/12/20 09:34 Ecotrin PO 81 mg DAILY MICHAEL Administration Cyanocobalamin 1,000 mcg 03/12/20 09:00 03/12/20 09:34 Vitamin B-12 PO 1,000 mcg DAILY MICHAEL Administration Enoxaparin Sodium 30 mg 03/12/20 09:00 03/12/20 09:33 Lovenox SC 30 mg 0900 MICHAEL Administration Folic Acid 1 mg 03/12/20 09:00 03/12/20 09:34 Folvite PO 1 mg DAILY MICHAEL Administration Furosemide 40 mg 03/12/20 08:00 03/12/20 09:34 Lasix SLOW IVP 40 mg 08,1999 MICHAEL Administration Piperacillin Sod/Tazobactam 100 mls @ 200 mls/hr 03/11/20 22:00 03/12/20 13: 06 Sod 2.25 gm/ Sodium Chloride IVPB 100 mls Q8HR MICHAEL Administration Sodium Bicarbonate 150 meq/ 1,150 mls @ 50 mls/hr 03/11/20 22:15 03/11/20 23: 05 Dextrose/Water IV 03/12/20 21:14 1,150 mls 2215 MICHEAL Administration Norepinephrine Bitartrate 250 mls @ 0 mls/hr 03/11/20 22:15 03/12/20 11:21 Levophed IVPB 250 mls PRN PRN Administration To maintain MAP > 65 Protocol Titrate Dobutamine HCl/Dextrose 250 mls @ 4.943 mls/hr 03/12/20 00:30 03/12/20 02:28 Dobutamine 500 Mg/250 Ml IVPB 250 mls INF MICHAEL Administration Protocol 2.5 MCG/KG/MIN Levothyroxine Sodium 112 mcg 03/12/20 06:00 03/12/20 06:33 Synthroid PO 112 mcg 0600 MICHAEL Administration Montelukast Sodium 10 mg 03/11/20 21:00 03/11/20 20:30 Singulair PO Not Given QPM MICHAEL Morphine Sulfate 2 mg 03/11/20 22:20 03/12/20 09:33 Morphine SLOW IVP 04/10/20 22:20 2 mg Q1H PRN Administration BREAKTHROUGH PAIN/Agitation Saccharomyces Boulardii 250 mg 03/12/20 09:00 03/12/20 09:34 Florastor PO 250 mg DAILY MICHAEL Administration Thiamine HCl 100 mg 03/12/20 09:00 03/12/20 09:34 Thiamine PO 100 mg DAILY MICHAEL Administration Vecuronium Brandon 10 mg 03/12/20 00:35 03/12/20 09:33 Norcuron IVP 10 mg Q30M PRN Administration Agitation - Exam General - other findings: on vent, in prone position Psychiatric: not oriented Hosp A/P - Plan Cardiac arrest Acute hypoxi resp failure, requiring intubation HCAP Sepsis 2/2 HCAP vs. CHF exacerbation Metabolic encephalopathy Diastolic CHF exacerbation [echo of 01/25 -- nl EF of 65%, II diastolic dysfn] Lino and metabolic acidosis -- on lasix and HCO3 drip. Now Leukopenia Elevated d-dimer macrocytic anemia of Chr. dz Abn. troponin with metabolic mismatch, type II. --Overall her prognosis is guarded -- palliative updated me now, family is considering DNR -CCM, cardiology, ID, and renal on board in addition to palliative.
[2020-03-12] MEDS ORDERED: Metolazone 5 MG TAB PO SCH (15:45)
[2020-03-12] MEDS ORDERED: Furosemide 40 MG/4 ML VIAL SLOW IVP SCH (15:45)
[2020-03-12 16:03] LABS: Free T4 (Free Thyroxine) 1.1 ng/dL (0.70-1.48); Thyroid Stimulating Hormone 2.5085 uIU/mL (0.35-4.94)
--- NOTE | 2020-03-12 16:17 | PRG ---
DATE OF SERVICE: 03/12/2020 SERVICE: Nephrology. SUBJECTIVE: This 69-year-old female is seen in followup for acute renal failure and metabolic acidosis. The patient was admitted on transfer from acute rehab due to worsening shortness of breath and fever. Impression of possible pneumonia was made and the patient was started on IV fluid and antibiotics earlier on, which was later changed to diuretics. The patient was also on BiPAP, but she later took it off and soon went into cardiac arrest requiring CPR and was subsequently intubated. The patient is still intubated and mechanically ventilated. Post cardiac arrest, the patient became hypotensive, requiring pressor and inotropic agent. OBJECTIVE: VITAL SIGNS: Pulse 100, respiratory rate 25, SpO2 95% on 100% FiO2, temperature 97.9, and blood pressure 103/50. I and O in the last 24 hours showed total intake of 442.8 and total output of 515. This, however, is inconclusive as intake in the ER and in prior IMCU stay was not included. GENERAL: Elderly female, who is sedated and mechanically ventilated. HEENT: ET tube and OG tubes are in place. CARDIOVASCULAR: Regular rhythm, but tachycardic. RESPIRATORY: Crackle in both lung barker as well as ventilator transmitted breath sound is heard. GI: Full, soft, nondistended with normal bowel sounds. EXTREMITIES: Mild bilateral pedal edema noted. WOOL GROWER: The patient is sedated. UROGENITAL: Barrett catheter is in place draining some urine. DIAGNOSTIC DATA: CBC this morning showed a WBC count of 4.2, hemoglobin of 9.9, and platelet of 155. Arterial blood gas this morning showed pH of 7.31, an improvement from 7.03 post code; pCO2 is 26.3; pO2 is 95.6; and ionized calcium is 1.13. Chemistry showed sodium of 138, potassium of 3.5, chloride of 111, CO2 of 15, BUN of 21, creatinine of 2.95, glucose of 116, and calcium of 7.7. COVID PCR was negative. Procalcitonin is 1.23. LDH is 2.17. ASSESSMENT: 1. Acute renal failure: This is due to hemodynamic factors related to cardiac decompensation. Some contribution from sepsis cannot be ruled out, however, though this seems to be unlikely. 2. Severe metabolic acidosis due to acute kidney injury and cardiac arrest. 3. Acute respiratory failure: Most likely due to congestive heart failure with possible contribution from pneumonia. Pneumonic component is however questionable and unlikely given normal procalcitonin and LDH. 4. Bilateral lung infiltrates: Most likely due to fluid overload. Pneumonia remained a concern given history of fever prior to presentation. 5. Sepsis: Source of infection is unclear. The patient had prior history of Clostridium difficile colitis. Pneumonia remained a concern, though clinical picture is not suggestive. PLAN: 1. We will continue aggressive diuretic therapy given persistent of infiltrate and congestion on chest exam. We will add metolazone to Lasix. 2. We will also continue sodium bicarbonate infusion at a reduced rate to prevent worsening fluid overload. 3. Empirical antibiotics as per asphalt spreader operator and primary attending. 4. We will continue to monitor electrolytes as well as renal function and intake and output. 5. Further treatment to follow depending on hospital course. Job ID: [id number]
--- NOTE | 2020-03-12 17:02 | CON ---
DATE OF CONSULTATION: PRIMARY CARE DOCTOR: Dr. Shukri Christiansen. REASON FOR CARDIOLOGY CONSULT: Cardiorenal syndrome. This is a chart review due to this patient's COVID-19 positive. HISTORY OF PRESENT ILLNESS: Ms. Mccormick is a 69-year-old female with significant history of chronic diastolic heart failure, hypertension, hyperlipidemia, ex-smoker, chronic fatigue, hypothyroidism. The patient recently discharged from hospital on February 26 after treating for UTI and negative C diff diarrhea. The patient was transferred to rehab and the patient was readmitted to the hospital due to severe shortness of breath with temperature more than 102. The patient was treated for COVID-19. Last night, the patient was coded and the patient had one round of CPR. The patient was transferred to CCU and Cardiology consult was ordered due to cardiorenal syndrome with elevated troponin at 0.122, 0.240, and 0.636, and fourth troponin is going to be checked. The patient has been intubated. The patient has been seen by Dr. Cary and also Dr. Pratt for Nephrology consult for acute kidney injury on CKD. The patient has been on a dobutamine drip and Levophed drip at this moment. The patient was on a carvedilol before, which is going to be stopped due to the dobutamine drip. She has been on Lasix twice a day, which was ordered by Dr. Pratt. The patient's lactic acid was 4.3 this morning. CRP is 6.96. BNP during this hospitalization is more than 3600. The patient had echocardiograms done in January 2020 with EF more than 60% to 65%, grade 1 diastolic dysfunction, moderate LAE and mitral valve regurgitation, aortic valve regurgitation, and tricuspid regurgitation, and trace pulmonic valve regurgitation. The patient has not had any stress test at this moment. PAST MEDICAL HISTORY: Chronic diastolic heart failure, recurrent UTI, hypertension, hyperlipidemia, COPD, hypothyroidism, osteoporosis, vitamin D deficiency, prior history of alcohol abuse with rehabilitation done in the past, GERD, frequent UTI, depression. SURGICAL HISTORY: Hysterectomy, bladder sling surgery, left shoulder replacement, hip replacement, prior colonoscopy. FAMILY HISTORY: The patient's mother has a history of coronary artery disease, hypertension. The patient's father has history of stroke, the patient's brother had a history of myocardial infarction. SOCIAL HISTORY: The patient is an ex-smoker. Ex-EtOH abuse. She was resident of [facility]. ALLERGIES: SHE HAS NO KNOWN DRUG ALLERGIES. HOME MEDICATIONS: 1. Vitamin D 5000 units once a day. 2. Omeprazole 20 mg once a day. 3. Singulair 10 mg once a day. 4. Vitamin B12, 1000 mcg once a day. 5. Aspirin 81 mg once a day. 6. Vitamin B1, 100 mg once a day. 7. Cranberry 425 mg once a day. 8. Carvedilol 3.125 mg twice a day. 9. Folic acid 1 mg once a day. 10. Levothyroxine 112 mcg daily. 11. Cipro 500 mg twice a day. 12. Imodium 2 mg as needed. 13. Florastor 250 mg once a day. REVIEW OF SYSTEMS: Noncontributory. PHYSICAL EXAMINATION: VITAL SIGN: Blood pressure 92/45, temperature 97.7, pulse is 87 and sinus rhythm, O2 saturation 100% on the vent according to doctor's note. Other physical examination is noncontributory due to this is a chart review. LABORATORY DATA: WBC 4.2, hemoglobin 9.9, hematocrit 30.9, platelets 155. D- dimer 6.96. Sodium 138, potassium 3.5, BUN 21, creatinine 2.95, glucose 116, lactic acid is 4.3, calcium 7.7, AST 64, ALT 17. CK-MB is 1.8. Troponin is 0.122, 0.124, 0.635. CRP is 6.96. BNP is more than 3600. UA is positive for UTI. ASSESSMENT AND PLAN: 1. Elevated troponin due to possible CAD or COVID-19 positive. At this moment, the patient's further cardiac workup is going to be postponed due to COVID-19. Once the patient is cleared, possibly the patient might undergo cardiac cath. We would like to continue to monitor. 2. Acute on chronic diastolic heart failure. The patient is on dobutamine and Lasix 40 mg twice a day. Carvedilol is going to be stopped due to the dobutamine drip. The patient is also on Levophed. 3. Acute kidney injury, which is managed by Dr. Pratt. 4. Hypertension. The patient's blood pressure is stable at this moment. 5. Hypothyroidism. She is on levothyroxine. 6. Urinary tract infection. She is on IV antibiotic. Thank you very much for the Cardiac Service consult request to participate in this patient's care. We will follow along with the patient's care team and make further recommendations as appropriate. Job ID: [id number] MTDD
[2020-03-12] MEDS: Montelukast Sodium 10 mg Tablet PO SCH (19:41)
--- NOTE | 2020-03-12 21:51 | CON ---
DATE OF CONSULTATION: 03/12/2020 REASON FOR CONSULTATION: Pulmonary infiltrates and respiratory failure. HISTORY OF PRESENT ILLNESS: A 69-year-old patient, who until this year had been to the hospital for some orthopedic complications and she had also a joint replacement in 2017 in the right hip. Then at the beginning of last month, she came in with symptom of weakness and possible alcoholism and [id number] abnormalities in liver function test, particularly moderate elevation in the bilirubin and AST. She had a fairly extensive evaluation all the way to an MRI of the abdomen and it showed steatohepatitis or possible steatohepatitis as well as an element of acute kidney injury. The hepatitis serologies were negative and she had mild elevation of creatinine, which improved and her TSH was 49.3, and they did a cosyntropin stimulation test, which was normal. The free T4 and free T3 were reduced below the lower limits of normal. She was sent to inpatient rehab and stayed there for a few days, was able to walk around and perform activities of daily living. Eventually transferred back to her assisted living facility and then did not last long in her place and had to be readmitted because of recurrence of weakness. She was readmitted to the to the hospital and was discharged on 02/26 after spending about 4 days in the hospital. Discharge diagnoses were UTI, viral diarrhea, and deconditioning. She was sent to the rehab again with aspirin, vitamin D, cranberry, vitamin B12, folic acid, Singulair, omeprazole, Coreg, Cipro, Synthroid, and Florastor. At the rehab, she has stayed for few days and then developed worsening renal function. Dr. Hall was consulted, gave her albumin infusions and then 2 or 3 days later she became hypoxemic, tachypneic, and bilateral pulmonary infiltrates and she was transferred to the emergency room on 03/11. Heart rate was in 130s, her O2 saturations were 88%, and she had bilateral diffuse pulmonary infiltrates. The BP was 140/90, temperature was 102 and respiratory rate is 30. The exam the patient had described as normal cardiac exam. The lung exam was not described properly. The abdominal examination was described as nontender and she had no edema in the extremity evaluation. She is described as being oriented to person and place. Other initial findings included a white cell count 19,000, hemoglobin 8.9, platelets 217, and MCV was 103 with a normal differential. The INR was 1.6. D-dimer 6.96. The blood gas with pH of 7.33, pCO2 of 27, pO2 of 70, and the TSH has reduced in normal range of 2.5 and the thyroid hormones have improved to normal. Albumin was 3.3 and troponin 0.635 and then 0.187. Creatinine was up to 2.94. Lactic acid is 2.4. Urinalysis with 4 to 6 wbc's. She had a COVID PCR, which is not detected. She had to be intubated and her BNP was very high at 3300. At 10 p.m. on 03/11 , she had Code Blue and was moved to the CCU. She had a central line placed in the groin. She has not had any diarrhea. No seizure activity. PAST MEDICAL HISTORY: Hypertension, hypothyroidism, osteoporosis, alcoholism, hysterectomy, left shoulder replacement, right hip replacement, UTIs, diastolic dysfunction, CHF, and hypothyroidism. ALLERGIES: NONE. SOCIAL HISTORY: Reportedly abstinent from alcoholic beverage intake since [place] last year. Former smoker. Resident at [facility]. FAMILY HISTORY: Coronary artery disease. PHYSICAL EXAMINATION: VITAL SIGNS: T-max 99.1, BP 98/44, and pulse is 107. SKIN: The patient has a groin central line or tracheal intubation. HEENT: The pupils are constricted. Cannot test ocular movements. LUNGS: With diminished breath sounds at bases. Crackles. HEART: S1 and S2. Regular rate. Diminished heart sounds. ABDOMEN: Not distended. No guarding. No ascites. No organomegaly. No bladder distention. Indwelling Barrett catheter output is 515 over the past 24 hours. She has been -72 and -260. EXTREMITIES: I cannot test her motility at the moment because of sedation. She has no edema in lower extremities. Pulses are 1+. Hyporeflexia in her feet. CURRENT MEDICATIONS: Include; 1. Furosemide. 2. Broad-spectrum antimicrobial therapy with levofloxacin. 3. She is also on Zosyn. 4. Levophed. 5. Metolazone. 6. She was given thiamine as well. LABORATORY DATA: The latest white cell count 4.2, hemoglobin 9.9, platelets 155 , neutrophils are 8, 51% bands, and 2% metamyelocytes. D-dimer 6.96 and INR 1.6. Creatinine is 2.95. The chest x-ray with diffuse bilateral infiltrates. ASSESSMENT: Alcoholism, chronic liver disease, possible cirrhosis, diastolic dysfunction, hypothyroidism with erratic intake for thyroid replacement in the past, malnutrition, acute renal failure, presumably due to hemodynamic factors, acute respiratory failure with diffuse bilateral pulmonary infiltrates and evidence to suggest pulmonary edema. DISCUSSION: The patient has a steady decline in her functional capacity over the past few months with evidence of poor compliance with her medications when she goes home. She has had documented quite significant hypothyroidism due to lack of intake of her thyroid medication. In addition to that, there was reported continuing alcoholic beverage intake. The patient more recently developed worsening renal function, presumably due to hemodynamic consequences of volume depletion, although the sequence of events is not very clear. Now fairly rapid deterioration of her lung function associated with what appears to be either pulmonary edema or diffuse pneumonia. The patient is critically ill, but intubated and receiving broad-spectrum antimicrobial coverage as well as treatment for pulmonary edema. Her thyroid hormones have returned to normal with replacement probably since she was admitted to the rehab, but until fairly recently she had quite significant hypothyroid, which might have contributed to her current situation in terms of depression of cardiac function and other systemic effects of hypothyroidism. So it seems like her current status is a function of a multifactorial causes with contribution of cardiac dysfunction, renal insufficiency, and chronic liver disease and endocrinological insufficiency leading to a vicious cycle to the current state. She has evidence of hypoperfusion and multiorgan dysfunction now after the recent episode. The patient's with a cardiac arrest in hospital even after successful resuscitation, rarely will recover significant functional status and rate of survival leading to hospital discharges are in the order of 10%, so I think the overall prognosis is quite poor. The last question is regarding the adequacy of the Covid rule out procedure. It seems that the pre-test likelihood of Covid infection is around 30% or less so a negative test particularly the one done here at the hospital, with 3 primers, is enough to reassure us regarding its absence. Job ID: [id number] [facility]
[2020-03-12] MEDS ORDERED: Digoxin 0.5 MG/2 ML AMP SLOW IVP SCH (22:45)
[2020-03-12] MEDS ORDERED: Amiodarone 150 MG, Admixture Fee 1 EACH in Dextrose 5% in Water 100 ML IVPB SCH (23:00)
[2020-03-12] MEDS: Amiodarone In Dextrose 200 ML IVPB SCH (23:06)
[2020-03-12] MEDS ORDERED: Amiodarone 450 MG, Admixture Fee 1 EACH in Dextrose 5% in Water 250 ML IVPB SCH (23:15)
[2020-03-13] MEDS: Norepinephrine 8 MG/0.9% NS 250 ML IVPB PRN ×4 (01:02→21:07)
[2020-03-13 04:33] LABS: Anion Gap 20 mmol/L (10-20); BUN (Urea Nitrogen) 27 mg/dL (9.8-20.1); Calc. Creatinine Clearance 18 mL/min (70-130); Calcium 7.6 mg/dL (7.8-10.44); Carbon Dioxide 15 mmol/L (23-31); Chloride 107 mmol/L (98-107); Estimated GFR-MDRD 15; Glucose 97 mg/dL (80-115); Potassium 4.1 mmol/L (3.5-5.1); Sodium 138 mmol/L (136-145)
[2020-03-13 05:12] LABS: Band 39 % (5-11); Lymphocytes 24 % (21-51); MDiff Complete? YES; Macrocytosis SLIGHT = 6-15 cells (100X) (0-5/hpf); Mean Corpuscular HGB CONC 30.7 g/dL (32.0-36.0); Mean Corpuscular Hemoglobin 31.8 pg (27.0-31.0); Mean Platelet Volume 8.3 fL (7.4-10.4); Metamyelocyte 8 % (0-0); Monocytes 3 % (0-10); Neutrophil 26 % (42-75); Platelet Count 169 thou/uL (130-400); Platelet Morphology Comment Appears Adequate; RBC Distribution Width 14.6 % (11.5-14.5); Red Blood Cell (RBC) Count 2.83 mill/uL (4.20-5.40); Toxic Granulation SLIGHT; White Blood Cell (WBC) Count 20.4 thou/uL (4.8-10.8)
[2020-03-13] MEDS: Levothyroxine Sodium 112 MCG TAB PO SCH ×2 (05:32→05:33)
[2020-03-13] MEDS: Piperacillin/Tazobactam 2.25 GM in Sodium Chloride 0.9% 100 ML IVPB SCH ×3 (05:33→21:06)
[2020-03-13] MEDS: Amiodarone In Dextrose 200 ML IVPB SCH (05:33)
[2020-03-13 07:20] LABS: Actual Bicarbonate (HCO3a) 13.9 mEq/L (22-28); Base Excess (BEa) -9.9 mEq/L (-2.0 to +3.0); Calcium, Ionized (arterial) 1.05 mmol/L (1.12-1.30); Carboxyhemoglobin (COHb) 0.9 gm% (0.0-3.0); Hemoglobin (Hb) 11.8 g/dL (12.0-16.0); O2 Tension (PaO2), arterial 68.9 mmHg (> 70.0); Potassium - ABG Lab 3.99 mmol/L (3.70-5.30); pH, Arterial 7.36 (7.35-7.45)
[2020-03-13 07:39] LABS: ALT (SGPT) 19 U/L (8-55); AST (SGOT) 77 U/L (5-34); Albumin 2.7 g/dL (3.4-4.8); Alkaline Phosphatase 74 U/L (40-110); Bilirubin, Direct 1.5 mg/dL (0.1-0.3); Bilirubin, Total 2.4 mg/dL (0.2-1.2); Protein, Total 5.7 g/dL (6.0-8.3)
[2020-03-13 07:40] LABS: Lactic Acid 6.1 mmol/L (0.5-2.2)
[2020-03-13 07:50] LABS: Puncture Site RRAD
--- NOTE | 2020-03-13 08:44 | PDOC.HOSPP ---
- Subjective Encounter Date: 03/13/20 Encounter Time: 07:00 Subjective: overnight, afib w/ RVR, started amiodarone drip per cardiology, converted to sinus. This morning, unresponsive despite being off sedation. - Objective Vital Signs & Weight: Vital Signs (12 hours) Temp Pulse Resp Pulse Ox 03/13/20 08:00 25 H 96 03/13/20 07:52 90 03/13/20 07:00 98.2 F 03/13/20 06:00 25 H 03/13/20 04:00 25 H 03/13/20 02:00 25 H 03/13/20 00:00 25 H 03/12/20 22:50 187 H 03/12/20 22:00 25 H Weight Admit Weight 146 lb Weight 146 lb 2.664 oz Most Recent Monitor Data Heart Rate from ECG 90 NIBP 99/49 NIBP BP-Mean 65 Respiration from ECG 25 SpO2 96 I&O: 03/12/20 03/13/20 03/14/20 06:59 06:59 06:59 Intake Total 442.8 1309.4 Output Total 515 965 20 Balance -72.2 344.4 -20 Result Diagrams: 03/13/20 03:45 03/13/20 03:45 Hospitalist ROS - Review of Systems ROS unobtainable: due to mental status - Medication Medications: Active Medications Generic Name Dose Route Start Last Admin Trade Name Markq PRN Reason Stop Dose Admin Aspirin 81 mg 03/12/20 09:00 03/12/20 09:34 Ecotrin PO 81 mg DAILY MICHAEL Administration Cyanocobalamin 1,000 mcg 03/12/20 09:00 03/12/20 09:34 Vitamin B-12 PO 1,000 mcg DAILY MICHAEL Administration Enoxaparin Sodium 30 mg 03/12/20 09:00 03/12/20 09:33 Lovenox SC 30 mg 0900 MICHAEL Administration Folic Acid 1 mg 03/12/20 09:00 03/12/20 09:34 Folvite PO 1 mg DAILY MICHAEL Administration Furosemide 40 mg 03/12/20 08:00 03/12/20 19:40 Lasix SLOW IVP 40 mg 08,2000 MICHAEL Administration Piperacillin Sod/Tazobactam 100 mls @ 200 mls/hr 03/11/20 22:00 03/13/20 05: 33 Sod 2.25 gm/ Sodium Chloride IVPB 100 mls Q8HR MICHAEL Administration Norepinephrine Bitartrate 250 mls @ 0 mls/hr 03/11/20 22:15 03/13/20 06:42 Levophed IVPB 250 mls PRN PRN Administration To maintain MAP > 65 Protocol Titrate Dobutamine HCl/Dextrose 250 mls @ 4.943 mls/hr 03/12/20 00:30 03/12/20 02:28 Dobutamine 500 Mg/250 Ml IVPB 250 mls INF MICHAEL Administration Protocol 2.5 MCG/KG/MIN Amiodarone HCl/Dextrose 200 mls @ 0 mls/hr 03/12/20 23:15 03/13/20 05:33 Nexterone IVPB 200 mls INF MICHAEL Administration Protocol As Directed Levothyroxine Sodium 112 mcg 03/12/20 06:00 03/13/20 05:32 Synthroid PO 112 mcg 0600 MICHAEL Administration Levothyroxine Sodium 112 mcg 03/13/20 06:00 03/13/20 05:33 Synthroid PO Not Given 0600 MICHAEL Montelukast Sodium 10 mg 03/11/20 21:00 03/12/20 19:41 Singulair PO 10 mg QPM MICHAEL Administration Morphine Sulfate 2 mg 03/11/20 22:20 03/12/20 09:33 Morphine SLOW IVP 04/10/20 22:20 2 mg Q1H PRN Administration BREAKTHROUGH PAIN/Agitation Propofol 1,000 mg 03/11/20 22:20 03/12/20 19:42 Diprivan IV 04/10/20 22:20 1,000 mg INF PRN Administration TO ACHIEVE GOAL RASS Protocol Saccharomyces Boulardii 250 mg 03/12/20 09:00 03/12/20 09:34 Florastor PO 250 mg DAILY MICHAEL Administration Thiamine HCl 100 mg 03/12/20 09:00 03/12/20 09:34 Thiamine PO 100 mg DAILY MICHAEL Administration Vecuronium [place] 10 mg 03/12/20 00:35 03/12/20 09:33 Norcuron IVP 10 mg Q30M PRN Administration Agitation - Exam General - other findings: intubated Eye: PERRL Eye - other findings: absent corneal reflex ENT - other findings: no cough reflex Neck: no JVD Heart - other findings: sinus tachy in 90s based on telemetry Respiratory - other findings: coarse breath sounds throughout, intubated Extremities - other findings: b/l equal pitting edema to knee level Hosp A/P - Plan #hypoxic respitaroy failure #CAP/ARDS due to complicated UTI-induced sepsis / decompensated HFpEF -GCS 3 s/p cardiac arrest; entire code lasted 7 minutes -may be anoxic brain injury considering had hypoxia prior to cardiac arrest; however, confounding variables such as shock are present -per notes, family considering transition to DNAR -BCx likely contaminant; UCx pending; on ABx as per ID -no longer in time window to induce hypothermia -consult neurology; continue to follow; if no neurologic improvement may obtain CT head -ABx as per ID; ventilation and pressors as per PCCM #FABRIZIO #decompensated HFpEF -stable renal function; diuresis impoved with metolazone and lasix -hypervolemic on exam -continue diuresis as per nephrology #afib w/ RVR -started amiodarone as per cardiology; currently sinus rhythm Disposition/PPx Full code. Left voice message with Daughter (Hilary) updating regarding current status and requesting that she calls to discuss goals of care and code status DVT PPx: Lovenox GI PPx: no Ix
[2020-03-13] MEDS: Furosemide 40 MG/4 ML VIAL SLOW IVP SCH ×3 (08:53→21:06)
[2020-03-13] MEDS: Enoxaparin Sodium 30 MG/0.3 ML SYRINGE SC SCH (08:54)
[2020-03-13] MEDS: Aspirin 81 mg Enteric Coated Tablet PO SCH (08:54)
[2020-03-13] MEDS: Saccharomyces boulardii 250 MG CAP PO SCH (08:54)
[2020-03-13] MEDS: Thiamine 100 MG TAB PO SCH (08:54)
[2020-03-13] MEDS: Folic Acid 1 MG TAB PO SCH (08:54)
[2020-03-13] MEDS: Cyanocobalamin (Vitamin B-12) 1,000 MCG TAB PO SCH (09:03)
--- NOTE | 2020-03-13 10:20 | RAD ---
PORTABLE CHEST: Date: 03/13/2020 HISTORY: Pneumonia. COMPARISON: Prior day's exam. FINDINGS: The parenchymal lung changes have improved as compared to that prior study. Less confluent alveolar c hanges in both upper lobes and left parahilar region. Endotracheal and NG tubes are in satisfactory p osition. IMPRESSION: Improving interstitial alveolar lung opacities. POS: [facility]
[2020-03-13] MEDS ORDERED: Metolazone 5 MG TAB PER TUBE SCH (10:45)
[2020-03-13] MEDS ORDERED: Sodium Bicarbonate 150 MEQ in Dextrose 5% in Water 1,000 ML IV SCH (10:45)
--- NOTE | 2020-03-13 10:45 | PRG ---
DATE OF SERVICE: 03/13/2020 SUBJECTIVE: Alaina Mccormick is a 69-year-old female. This morning, she is surprisingly unresponsive. OBJECTIVE: HEENT: Her pupils are about 4 mm, sluggish. VITAL SIGNS: Respiratory rate was turned down to 14. She has not assist in the vent, pulse 84, blood pressure 110/60, saturations are 90%, respirations 14. She is on no sedation. No paralytics. Levophed drip and amiodarone drip. CHEST: Decreased breath sounds. Minimal crackles and rhonchi. CARDIAC: Normal S1, S2. ABDOMEN: Soft. NEUROLOGIC: Unresponsive, flaccid. LABORATORY DATA: PO2 of 68, pCO2 of 25 on 60%, PEEP of 10. Creatinine is 3, BUN is 27. Lactic acid is 6. TSH is normal. X-ray still shows diffuse infiltrates. ASSESSMENT: 1. Respiratory failure, congestive heart failure, metabolic encephalopathy. 2. Rule out cerebrovascular accident. 3. CPR. 4. Mcfarlane negative. PLAN: I am concerned she has some neurological insult at this stage. She has worsening renal function, remains hypertensive. There is no need to change any antibiotics at this stage. Probably does not have pneumonia, more than likely this is all CHF. She is also on Dobutrex. We do not have any report on the echocardiogram. Awaiting input from Cardiology. Await input from Neurology. Supportive care. Vent is being adjusted. Prognosis remains guarded. One-half hour of critical time. Job ID: [id number]
--- NOTE | 2020-03-13 12:28 | CON ---
NEUROLOGY CONSULTATION DATE OF CONSULTATION: 03/13/2020 REASON FOR CONSULTATION: Altered mental status. HISTORY OF PRESENT ILLNESS: Ms. Mccormick is a 69-year-old female with history significant for chronic diastolic heart failure, hypertension, hyperlipidemia, nicotine abuse, chronic fatigue, hypothyroidism, who was recently discharged from the hospital on February 26 after she has been treated for UTI and negative Clostridium difficile diarrhea. She was at rehab and then because of shortness of breath and high fever, she was transferred back and was treated for COVID yesterday. Yesterday, the patient coded and had one round of CPR and was transferred to ICU. She was also intubated and started on started on dobutamine and Levophed drip. The patient has not received any sedation since 3:00 a.m. this morning and continues to remain unresponsive. Neurology was consulted for prognosis. REVIEW OF SYSTEMS: Unobtainable secondary to mental status. PAST MEDICAL HISTORY: Chronic diastolic heart failure, history of recurrent urinary tract infection, hypertension, hyperlipidemia, COPD, hypothyroidism, osteoporosis, prior history of alcohol abuse, vitamin D deficiency, GERD, depression. PAST SURGICAL HISTORY: Hysterectomy, bladder surgery, left shoulder replacement , hip replacement. FAMILY HISTORY: The patient's mother has history of coronary artery disease and father has history of myocardial infarction. SOCIAL HISTORY: The patient has history of alcohol and nicotine abuse. Currently, she was a resident of [facility]. ALLERGIES: NO KNOWN DRUG ALLERGIES. HOME MEDICATIONS: 1. Vitamin D 5000 units once daily. 2. Omeprazole 20 mg once a day. 3. Singulair 10 mg once a day. 4. Vitamin B12 1000 mcg once a day. 5. Aspirin 81 mg once a day. 6. Vitamin B1 100 mg once a day. 7. Cranberry 425 mg once a day. 8. Carvedilol 3.125 mg twice a day. 9. Folic acid 1 mg once a day. 10. Levothyroxine 112 mcg daily. 11. Cipro 500 mg twice a day. 12. Imodium 2 mg as needed. 13. Florastor 250 mg once a day. - Objective Vital Signs & Weight: Vital Signs (12 hours) Temp Pulse Resp Pulse Ox 03/13/20 08:00 25 H 96 03/13/20 07:52 90 03/13/20 07:00 98.2 F 03/13/20 06:00 25 H 03/13/20 04:00 25 H 03/13/20 02:00 25 H 03/13/20 00:00 25 H 03/12/20 22:50 187 H 03/12/20 22:00 25 H Weight Admit Weight 146 lb Weight 146 lb 2.664 oz Most Recent Monitor Data Heart Rate from ECG 90 NIBP 99/49 NIBP BP-Mean 65 Respiration from ECG 25 SpO2 96 I&O: 03/12/20 03/13/20 03/14/20 06:59 06:59 06:59 Intake Total 442.8 1309.4 Output Total 515 965 20 Balance -72.2 344.4 -20 - Review of Systems ROS unobtainable: due to mental status - Medication Medications: Active Medications Generic Name Dose Route Start Last Admin Trade Name Freq PRN Reason Stop Dose Admin Aspirin 81 mg 03/12/20 09:00 03/12/20 09:34 Ecotrin PO 81 mg DAILY MICHAEL Administration Cyanocobalamin 1,000 mcg 03/12/20 09:00 03/12/20 09:34 Vitamin B-12 PO 1,000 mcg DAILY MICHAEL Administration Enoxaparin Sodium 30 mg 03/12/20 09:00 03/12/20 09:33 Lovenox SC 30 mg 09 MICHAEL Administration Folic Acid 1 mg 03/12/20 09:00 03/12/20 09:34 Folvite PO 1 mg DAILY MICHAEL Administration Furosemide 40 mg 03/12/20 08:00 03/12/20 19:40 Lasix SLOW IVP 40 mg 08,1999 MICHAEL Administration Piperacillin Sod/Tazobactam 100 mls @ 200 mls/hr 03/11/20 22:00 03/13/20 05: 33 Sod 2.25 gm/ Sodium Chloride IVPB 100 mls Q8HR MICHAEL Administration Norepinephrine Bitartrate 250 mls @ 0 mls/hr 03/11/20 22:15 03/13/20 06:42 Levophed IVPB 250 mls PRN PRN Administration To maintain MAP > 65 Protocol Titrate Dobutamine HCl/Dextrose 250 mls @ 4.943 mls/hr 03/12/20 00:30 03/12/20 02:28 Dobutamine 500 Mg/250 Ml IVPB 250 mls INF MICHAEL Administration Protocol 2.5 MCG/KG/MIN Amiodarone HCl/Dextrose 200 mls @ 0 mls/hr 03/12/20 23:15 03/13/20 05:33 Nexterone IVPB 200 mls INF MICHAEL Administration Protocol As Directed Levothyroxine Sodium 112 mcg 03/12/20 06:00 03/13/20 05:32 Synthroid PO 112 mcg 0600 MICHAEL Administration Levothyroxine Sodium 112 mcg 03/13/20 06:00 03/13/20 05:33 Synthroid PO Not Given 0600 MICHAEL Montelukast Sodium 10 mg 03/11/20 21:00 03/12/20 19:41 Singulair PO 10 mg QPM MICHAEL Administration Morphine Sulfate 2 mg 03/11/20 22:20 03/12/20 09:33 Morphine SLOW IVP 04/10/20 22:20 2 mg Q1H PRN Administration BREAKTHROUGH PAIN/Agitation Propofol 1,000 mg 03/11/20 22:20 03/12/20 19:42 Diprivan IV 04/10/20 22:20 1,000 mg INF PRN Administration TO ACHIEVE GOAL RASS Protocol Saccharomyces Boulardii 250 mg 03/12/20 09:00 03/12/20 09:34 Florastor PO 250 mg DAILY MICHAEL Administration Thiamine HCl 100 mg 03/12/20 09:00 03/12/20 09:34 Thiamine PO 100 mg DAILY MICHAEL Administration Vecuronium [place] 10 mg 03/12/20 00:35 03/12/20 09:33 Norcuron IVP 10 mg Q30M PRN Administration Agitation PHYSICAL EXAMINATION: CARDIOVASCULAR: Regular rate and rhythm. CHEST: Clear. ABDOMEN: Soft. NEUROLOGIC: The patient in general ill-appearing female, intubated. She does not follow commands. She does not maintain eye contact. She does not respond to verbal or noxious stimuli. Cranial nerves; pupils 4 mm round, sluggishly reactive to light. Face symmetric. Tongue midline. Corneals negative. Gag negative. No gaze preference or roving eye movements. Motor; muscle tone and bulk are normal. No twitching or myoclonic jerks noted. No spontaneous movement seen. Reflexes absent bilaterally. Sensory, no withdrawal of all 4 extremities to nailbed pressure. Toes equivocal bilaterally. DATA REVIEWED: I reviewed the labs. ASSESSMENT AND PLAN: Ms. Mccormick is a 69-year-old female with multiple medical issues, consulted by Neurology for prognosis. She had cardiac arrest yesterday and has been off sedation since 3:00 a.m. on 03/12/2020,. Right now is too soon to predict prognosis since the patient has to be 48 hours off sedation for a reliable exam. However, at this time, she has barely preserved brainstem reflexes, only pupils sluggishly responsive to light and absence of long tract signs, which makes the prognosis extremely guarded at this point. Recommend MRI of brain to see if there is an evidence of anoxic brain injury. Neuro checks every 2 hours, consider stat head CT. If the condition decline, continue medical management per Primary Team. Plan discussed in detail with the with the nursing staff. We will continue to follow. Thank you for the consult. Job ID: [id number] MTDD
--- NOTE | 2020-03-13 13:05 | PRG ---
DATE OF SERVICE: 03/13/2020 SERVICE: Nephrology. SUBJECTIVE: A 69-year-old female, seen in followup for acute renal failure. The patient was admitted due to worsening shortness of breath and fever and later had a cardiac arrest requiring intubation. Post cardiac arrest, the patient became hypotensive and she was started on pressor and inotropic agent. The patient is still sedated and mechanically ventilated. Sedatives were however discontinued earlier this morning, but the patient have not woken up as yet. OBJECTIVE: VITAL SIGNS: Temperature 100.4, pulse 90, respiratory rate 25, SpO2 of 96% on 60% FiO2, blood pressure is 108/45. I and O in the last 24 hours showed total intake of 1309 with total output of 965. GENERAL: Elderly female, in no obvious distress. HEENT: Normocephalic, atraumatic. Facial swelling especially on the left side noted. ET tube is in place. CARDIOVASCULAR: Regular rhythm and rate with normal heart sounds 1 and 2. RESPIRATORY: Fair air entry bilateral. Ventilator transmitted breath sounds as well as bibasilar crackles noted. GI: Mildly enlarged, soft with normoactive bowel sounds. UROGENITAL: Barrett catheter is in place draining some urine. EXTREMITIES: Mild bilateral pedal and ankle edema noted. NEUROSURGEON: The patient is somnolent. Was getting sedatives, which was discontinued earlier today. DIAGNOSTIC DATA: CBC showed WBC count of 20.4, hemoglobin of 9.0, platelets of 169. Blood gas this morning showed pH of 7.36, pCO2 of 25, pO2 of 69.8, ionized calcium of 1.05. CMP showed sodium 138, potassium 4.1, chloride 107, CO2 of 16, BUN 27, creatinine 3.05, calcium 7.6, total bilirubin 2.4, AST 77, ALT 19, alkaline phosphatase 74, total protein 5.7, albumin 2.7. Lactic acid is 6.1. Chest x-ray showed some improvement in bilateral infiltrates and congestion. ASSESSMENT: 1. Acute renal failure: Most likely due to hemodynamic factors. Acute tubular necrosis is a concern. The triggering effect is thought to be cardiorenal with possible sepsis. 2. Metabolic acidosis. 3. Acute respiratory failure due to bilateral pulmonary infiltrates/congestion. 4. Presumed acute congestive heart failure with pulmonary congestion. 5. Status post cardiac arrest. 6. Volume overload. 7. Paroxysmal atrial fibrillation. The patient received amiodarone last night with conversion back to sinus. 8. Presumed sepsis, on antibiotics. PLAN: 1. We will continue diuresis. We will change however to Lasix infusion as well as metolazone by mouth. 2. We will also continue sodium bicarbonate due to persistence of metabolic acidosis. 3. We will continue to monitor intake and output as well as electrolytes and replete as indicated. 4. Mechanical ventilation management as per linter tender. The patient, however, continued to require pressor and inotropic agent. 5. The patient remained critically ill with guarded prognosis, if not poor. Job ID: [id number]
[2020-03-13] MEDS ORDERED: Vancomycin HCl 750 MG in Sodium Chloride 0.9% 250 ML 250 ML IVPB SCH (14:00)
[2020-03-13] MEDS: Sodium Bicarbonate Tab 325 MG TAB PO SCH ×2 (14:37→21:06)
--- NOTE | 2020-03-13 14:51 | EKG ---
Test Reason : Blood Pressure : / mmHG Vent. Rate : 097 BPM Atrial Rate : 055 BPM P-R Int : 000 ms QRS Dur : 058 ms QT Int : 392 ms P-R-T Axes : 000 007 027 degrees QTc Int : 497 ms Accelerated Junctional rhythm with Premature supraventricular complexes and Fusion complexes Low voltage QRS Prolonged QT Abnormal ECG Confirmed by GERALDINE VILLAGOMEZ ([id number]), manager editorial ROSA DASILVA ([id number]) on 03/13/2020 2:51:11 PM Referred By: Confirmed By:GERALDINE VILLAGOMEZ
[2020-03-13] MEDS: Amiodarone 450 MG, Admixture Fee 1 EACH in Dextrose 5% in Water 250 ML IVPB SCH (17:22)
[2020-03-13] MEDS: Montelukast Sodium 10 mg Tablet PO SCH (21:06)
[2020-03-13] MEDS: DOBUTamine 500 mg/250 ml 250 ML IVPB SCH (21:08)
[2020-03-14 04:17] LABS: Anion Gap 18 mmol/L (10-20); BUN (Urea Nitrogen) 35 mg/dL (9.8-20.1); Calc. Creatinine Clearance 17 mL/min (70-130); Calcium 7.1 mg/dL (7.8-10.44); Carbon Dioxide 20 mmol/L (23-31); Chloride 102 mmol/L (98-107); Estimated GFR-MDRD 14; Glucose 122 mg/dL (80-115); Potassium 3.9 mmol/L (3.5-5.1); Sodium 136 mmol/L (136-145)
[2020-03-14] MEDS: Levothyroxine Sodium 112 MCG TAB PO SCH (05:01)
[2020-03-14] MEDS: Norepinephrine 8 MG/0.9% NS 250 ML IVPB PRN ×3 (05:01→22:18)
[2020-03-14] MEDS: Piperacillin/Tazobactam 2.25 GM in Sodium Chloride 0.9% 100 ML IVPB SCH (05:01)
[2020-03-14] MEDS: Furosemide 40 MG/4 ML VIAL SLOW IVP SCH ×3 (05:06→22:09)
[2020-03-14 05:15] LABS: Band 30 % (5-11); Eosinophils 2 % (0-10); Hemoglobin 8.1 g/dL (12.0-16.0); Lymphocytes 16 % (21-51); MDiff Complete? YES; Macrocytosis SLIGHT = 6-15 cells (100X) (0-5/hpf); Mean Corpuscular HGB CONC 31.7 g/dL (32.0-36.0); Mean Corpuscular Hemoglobin 32.6 pg (27.0-31.0); Mean Platelet Volume 8.8 fL (7.4-10.4); Monocytes 3 % (0-10); Myelocyte 1 % (0-0); Neutrophil 48 % (42-75); Platelet Count 143 thou/uL (130-400); Platelet Morphology Comment Appears Adequate; Polychromasia SLIGHT = 2-3 cells (100X) (0-2/hpf); RBC Distribution Width 14.8 % (11.5-14.5); Red Blood Cell (RBC) Count 2.48 mill/uL (4.20-5.40); Target Cells SLIGHT = 2-5 cells (100X) (0-1/hpf); Toxic Granulation SLIGHT; White Blood Cell (WBC) Count 28.2 thou/uL (4.8-10.8)
[2020-03-14] MEDS: Amiodarone 450 MG, Admixture Fee 1 EACH in Dextrose 5% in Water 250 ML IVPB SCH (05:15)
[2020-03-14 07:51] LABS: Actual Bicarbonate (HCO3a) 19.3 mEq/L (22-28); Base Excess (BEa) -6.6 mEq/L (-2.0 to +3.0); CO2 Tension 39.9 mmHg (35.0-45.0); Carboxyhemoglobin (COHb) 1.3 gm% (0.0-3.0); Hemoglobin (Hb) 8.4 g/dL (12.0-16.0); O2 Tension (PaO2), arterial 73.6 mmHg (> 70.0); Potassium - ABG Lab 3.77 mmol/L (3.70-5.30)
[2020-03-14 08:14] LABS: Puncture Site RRAD
[2020-03-14 08:15] LABS: ALV-art Gradient 304.325 (0-20)
[2020-03-14 08:32] VITALS: TEMP 99.3
[2020-03-14] MEDS ORDERED: Linezolid 600 MG in Premix Bag 1 BAG IVPB SCH (09:00)
[2020-03-14] MEDS: Aspirin 81 mg Enteric Coated Tablet PO SCH (09:00)
[2020-03-14] MEDS: Cyanocobalamin (Vitamin B-12) 1,000 MCG TAB PO SCH (09:00)
[2020-03-14] MEDS: Enoxaparin Sodium 30 MG/0.3 ML SYRINGE SC SCH (09:00)
[2020-03-14] MEDS: Folic Acid 1 MG TAB PO SCH (09:01)
[2020-03-14] MEDS: Thiamine 100 MG TAB PO SCH (09:02)
[2020-03-14] MEDS: Sodium Bicarbonate Tab 325 MG TAB PO SCH (09:02)
[2020-03-14] MEDS: Saccharomyces boulardii 250 MG CAP PO SCH (09:02)
[2020-03-14] MEDS ORDERED: Digoxin 0.5 MG/2 ML AMP SLOW IVP SCH (10:00)
[2020-03-14] MEDS ORDERED: Carvedilol 3.125 MG TAB PO SCH (11:15)
--- NOTE | 2020-03-14 11:41 | PRG ---
DATE OF SERVICE: 03/14/2020 SERVICE: Nephrology. SUBJECTIVE: This is a 69-year-old female, seen in followup for acute renal failure. The patient is still mechanically ventilated. Despite discontinuation of sedatives since yesterday morning, the patient is still unresponsive. The patient had a cardiac arrest 2 days ago. OBJECTIVE: VITAL SIGNS: Temperature 99.3, heart rate 83, respiratory rate 15, SpO2 99, and blood pressure 114/49. I and O in the last 24 hours showed total intake of 2791 with total output of 585. GENERAL: Unresponsive, elderly female, in no obvious distress. Afebrile and acyanotic. HEENT: Normocephalic and atraumatic. ET tube is in place. CARDIOVASCULAR: Regular rhythm and rate. Normal heart sounds. Soft systolic murmur noted. RESPIRATORY: Ventilator transmitted breath sounds noted. Mildly decreased at both bases. GI: Full, soft, nondistended with normal bowel sounds. UROGENITAL: Barrett catheter is in place draining some urine. EXTREMITIES: Mild pedal and ankle edema noted bilaterally. PALLIATIVE SENIOR NP: The patient is unresponsive. She is currently not in any sedatives for more than 24 hours. She had some decerebrate posturing with stimulation. DIAGNOSTIC DATA: CBC showed WBC count of 28.2, hemoglobin of 8.1, and platelet of 143. Chemistry today showed sodium of 136, potassium of 3.9, chloride of 102, CO2 of 20, BUN of 35, creatinine of 3.3, glucose of 122, and calcium of 7.1. ASSESSMENT: 1. Acute renal failure: Due to hemodynamic factors related to cardiac arrest. Acute tubular necrosis is a concern. 2. Chronic kidney disease, stage 3. 3. Volume overload. 4. Hypoalbuminemia. 5. Metabolic acidosis. 6. Status post cardiac arrest. 7. Anoxic brain injury. PLAN: 1. We will continue diuretics for now as the patient still has fluid overload. Given presumed anoxic brain injury, Neurology consult has been requested and MRI is pending. Family is thinking about terminal extubation. 2. We will continue supportive care at this point. I did discuss dialysis option with son at the bedside, but this however will not be an option if the patient has severe anoxic injury and is not waking up. Further treatment to follow depending on hospital course. We will recheck renal function test in the morning. Job ID: [id number]
[2020-03-14] MEDS: Sodium Chloride 0.9% 1,000 ML IV SCH (12:00)
--- NOTE | 2020-03-14 12:09 | PRG ---
DATE OF SERVICE: 03/14/2020 SUBJECTIVE: Alaina Mccormick who was status post respiratory failure, status post CPR. She has been off sedation for 48 hours. No verbal response. She is little bit more jaundiced this morning. Pupils are 2 mm. EF was done, rate 70%, but a chest x-ray shows evidence of congestive heart failure. She has severe tricuspid regurgitation. She had runs of SVT. OBJECTIVE: VITAL SIGNS: Blood pressure 104/78, pulse 103, regular, sats 90%, temp 99, respiratory rate 20. CHEST: Bilateral rhonchi, crackles. CARDIAC: Normal S1, S2. ABDOMEN: No masses. LABORATORY DATA: White count is 28,000, H and H 8 and 25, platelet count 143. 48 segs, 30 bands. PO2 of 73, pCO2 of PEEP 6% of FiO2, rate of 14. Creatinine is 3, BUN is 35, bicarb is 12. She apparently still on a bicarb drip. IMPRESSION: 1. Multiorgan failure. 2. Respiratory failure, status post CPR, diffuse pulmonary infiltrates. Normal EF. 3. SVT shock, on Levophed, Dobutrex, digoxin. 4. Urinary tract infection, apparently, vancomycin-resistant Enterococcus, sensitive to Zyvox only. 5. Probably anoxic injury. I am concerned she is not awake enough. She is too unstable to go for MRI. Therefore, CT head is being ordered without any contrast. Discontinue bicarb. Continue otherwise supportive care and start nutrition. She has multiorgan failure. I discussed with family regarding a code status. One-half hour of critical time. Job ID: [id number]
--- NOTE | 2020-03-14 12:49 | RAD ---
PORTABLE CHEST: HISTORY: Pneumonia followup. COMPARISON: 03/13/20 FINDINGS: ET tube and NG tube remain in place. Bilateral lung infiltrates again noted. Evidence of bilateral ef fusions. Diffuse hazy infiltrates are seen bilaterally. IMPRESSION: Bilateral infiltrates. No significant interval change. POS: [facility]
--- NOTE | 2020-03-14 16:08 | PDOC.HOSPP ---
- Subjective Encounter Date: 03/14/20 Encounter Time: 07:00 Subjective: no overnight events. This morning, remains off sedation and barely responsive though some improvement in corneal and cough reflexes. Discussed prognosis with son and MPOA who will convey to other son and reach decision regarding code status. - Objective Vital Signs & Weight: Vital Signs (12 hours) Temp Pulse Resp 03/14/20 13:41 117 H 03/14/20 12:00 18 03/14/20 11:00 103 H 03/14/20 10:06 134 H 03/14/20 10:00 21 H 03/14/20 08:13 82 03/14/20 08:00 99.3 F 19 03/14/20 06:00 15 Weight Admit Weight 146 lb Weight 147 lb 11.355 oz Most Recent Monitor Data Heart Rate from ECG 82 NIBP 112/54 NIBP BP-Mean 73 Respiration from ECG 18 SpO2 96 I&O: 03/13/20 03/14/20 03/15/20 06:59 06:59 06:59 Intake Total 1309.4 2791.8 805 Output Total 965 585 540 Balance 344.4 2206.8 265 Result Diagrams: 03/14/20 03:50 03/14/20 03:50 Hospitalist ROS - Review of Systems ROS unobtainable: due to mental status - Medication Medications: Active Medications Generic Name Dose Route Start Last Admin Trade Name Freq PRN Reason Stop Dose Admin Aspirin 81 mg 03/12/20 09:00 03/14/20 09:00 Ecotrin PO 81 mg DAILY MICHAEL Administration Cyanocobalamin 1,000 mcg 03/12/20 09:00 03/14/20 09:00 Vitamin B-12 PO 1,000 mcg DAILY MICHAEL Administration Enoxaparin Sodium 30 mg 03/12/20 09:00 03/14/20 09:00 Lovenox SC 30 mg 0900 MICHAEL Administration Folic Acid 1 mg 03/12/20 09:00 03/14/20 09:01 Folvite PO 1 mg DAILY MICHAEL Administration Furosemide 40 mg 03/13/20 14:00 03/14/20 15:38 Lasix SLOW IVP 40 mg Q8H MICHAEL Administration Norepinephrine Bitartrate 250 mls @ 0 mls/hr 03/11/20 22:15 03/14/20 12:59 Levophed IVPB 250 mls PRN PRN Administration To maintain MAP > 65 Protocol Titrate Dobutamine HCl/Dextrose 250 mls @ 4.943 mls/hr 03/12/20 00:30 03/13/20 21:08 Dobutamine 500 Mg/250 Ml IVPB 250 mls INF MICHAEL Administration Protocol 2.5 MCG/KG/MIN Amiodarone HCl 450 mg/ 259 mls @ 0 mls/hr 03/13/20 17:00 03/14/20 05:15 Miscellaneous Medication 1 IVPB 259 mls each/ Dextrose/Water INF MICHAEL Administration Protocol As Directed Sodium Chloride 1,000 mls @ 50 mls/hr 03/14/20 11:15 03/14/20 12:00 Normal Saline 0.9% IV 1,000 mls .Q20H MICHAEL Administration Levothyroxine Sodium 112 mcg 03/13/20 06:00 03/14/20 05:01 Synthroid PO 112 mcg 0600 MICHAEL Administration Morphine Sulfate 2 mg 03/11/20 22:20 03/12/20 09:33 Morphine SLOW IVP 04/10/20 22:20 2 mg Q1H PRN Administration BREAKTHROUGH PAIN/Agitation Propofol 1,000 mg 03/11/20 22:20 03/12/20 19:42 Diprivan IV 04/10/20 22:20 1,000 mg INF PRN Administration TO ACHIEVE GOAL RASS Protocol Saccharomyces Boulardii 250 mg 03/12/20 09:00 03/14/20 09:02 Florastor PO 250 mg DAILY MICHAEL Administration Thiamine HCl 100 mg 03/12/20 09:00 03/14/20 09:02 Thiamine PO 100 mg DAILY MICHAEL Administration - Exam General Appearance: ill appearing Eye: PERRL Heart: RRR, no murmur, no gallops Respiratory - other findings: b/l coarse breath sounds Gastrointestinal: soft, non-distended Extremities: no edema Neurological - other findings: minimal corneal and cough reflexes (somewhat improved) Musculoskeletal - other findings: cold extremities Hosp A/P - Plan #hypoxic respitaroy failure #CAP/ARDS due to complicated VRE UTI-induced sepsis / decompensated HFpEF -GCS 3 s/p cardiac arrest; entire code lasted 7 minutes -may be anoxic brain injury considering had hypoxia prior to cardiac arrest; however, confounding variables such as shock are present; pending CT head; MRI aborted due to HD instability; discussed with Neuro -discussed with family prognosis and code status; will attempt to reach decision within 24 hours -BCx likely contaminant; UCx VRE, started linezolid, continued levoflox for CAP ; defer to ID -ABx as per ID; ventilation and pressors as per PCCM #FABRIZIO #decompensated HFpEF -stable renal function; diuresis impoved with metolazone and lasix -hypervolemic on exam -continue diuresis as per nephrology #afib w/ RVR -started amiodarone as per cardiology; currently sinus rhythm Disposition/PPx Full code. Discussed condition, treatment, prognosis, goals of care with son and MPOA who will convey to remaining family; if no improvement within next 24 hours will consult palliative care DVT PPx: Lovenox GI PPx: no Ix
--- NOTE | 2020-03-14 16:19 | CT ---
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 Comparison: 02-02-2020 FINDINGS: There is some generalized ventricular and sulcal prominence. The sulcal pattern may be slightly less prominent than on the previous CT study making it difficult to exclude some element of edema. There i s no mass effect. Head positioning is significantly different than the prior examination and changes probably do not represent a significant interval change. There is opacification of both mastoids air cells. Visualized sinuses are clear. IMPRESSION: 1. No acute intracranial abnormalities. 2. Bilateral mastoid air cell disease. POS: [facility]
[2020-03-14] MEDS: Carvedilol 3.125 MG TAB PO SCH (17:27)
[2020-03-14] MEDS: Linezolid 600 MG in Premix Bag 1 BAG IVPB SCH (22:08)
[2020-03-15] MEDS: Amiodarone 450 MG, Admixture Fee 1 EACH in Dextrose 5% in Water 250 ML IVPB SCH (00:35)
[2020-03-15 04:19] LABS: Phosphorus 4.6 mg/dL (2.3-4.7)
[2020-03-15 04:21] LABS: ALT (SGPT) 16 U/L (8-55); AST (SGOT) 50 U/L (5-34); Albumin 2.4 g/dL (3.4-4.8); Alkaline Phosphatase 120 U/L (40-110); Bilirubin, Direct 2.3 mg/dL (0.1-0.3); Bilirubin, Total 2.9 mg/dL (0.2-1.2); Magnesium 1.3 mg/dL (1.6-2.6); Protein, Total 5.3 g/dL (6.0-8.3)
[2020-03-15] MEDS: Furosemide 40 MG/4 ML VIAL SLOW IVP SCH (05:22)
[2020-03-15] MEDS: Levothyroxine Sodium 112 MCG TAB PO SCH (05:22)
[2020-03-15] MEDS ORDERED: Magnesium 2 GM/50 ML 2 GM in Premix Bag 1 BAG IVPB SCH (06:30)
[2020-03-15 07:53] LABS: Anion Gap 16 mmol/L (10-20); BUN (Urea Nitrogen) 46 mg/dL (9.8-20.1); Calc. Creatinine Clearance 16 mL/min (70-130); Calcium 6.9 mg/dL (7.8-10.44); Carbon Dioxide 21 mmol/L (23-31); Chloride 99 mmol/L (98-107); Estimated GFR-MDRD 13; Glucose 150 mg/dL (80-115); Potassium 3.7 mmol/L (3.5-5.1); Sodium 132 mmol/L (136-145)
[2020-03-15 07:56] LABS: Digoxin 2.77 ng/mL (0.8-2.0)
--- NOTE | 2020-03-15 08:26 | PDOC.HOSPP ---
- Subjective Encounter Date: 03/15/20 Encounter Time: 07:00 Subjective: no overnight events. This morning, consciousness unchanged. PERRL but corneal or cough reflexes three days s/p cardiac arrest. - Objective Vital Signs & Weight: Vital Signs (12 hours) Pulse Resp BP Pulse Ox 03/15/20 07:46 14 90 L 03/15/20 07:24 34 L 95/49 L 03/15/20 06:00 17 03/15/20 04:00 17 03/15/20 02:19 75 100/54 L 03/15/20 02:00 14 03/15/20 00:00 14 03/14/20 22:01 72 95/52 L 03/14/20 22:00 14 Weight Admit Weight 146 lb Weight 150 lb 12.739 oz Most Recent Monitor Data Heart Rate from ECG 75 NIBP 84/44 NIBP BP-Mean 57 Respiration from ECG 19 SpO2 93 I&O: 03/14/20 03/15/20 03/16/20 06:59 06:59 06:59 Intake Total 2791.8 3378.3 Output Total 585 1107 70 Balance 2206.8 2271.3 -70 Result Diagrams: 03/14/20 03:50 03/15/20 07:26 Hospitalist ROS - Review of Systems ROS unobtainable: due to mental status - Medication Medications: Active Medications Generic Name Dose Route Start Last Admin Trade Name Freq PRN Reason Stop Dose Admin Aspirin 81 mg 03/12/20 09:00 03/14/20 09:00 Ecotrin PO 81 mg DAILY MICHAEL Administration Carvedilol 3.125 mg 03/14/20 17:00 03/14/20 17:27 Coreg PO 3.125 mg BID-WM MICHAEL Administration Cyanocobalamin 1,000 mcg 03/12/20 09:00 03/14/20 09:00 Vitamin B-12 PO 1,000 mcg DAILY MICHAEL Administration Enoxaparin Sodium 30 mg 03/12/20 09:00 03/14/20 09:00 Lovenox SC 30 mg 09 MICHAEL Administration Folic Acid 1 mg 03/12/20 09:00 03/14/20 09:01 Folvite PO 1 mg DAILY MICHAEL Administration Furosemide 40 mg 03/13/20 14:00 03/15/20 05:22 Lasix SLOW IVP 40 mg Q8H MICHAEL Administration Norepinephrine Bitartrate 250 mls @ 0 mls/hr 03/11/20 22:15 03/14/20 22:18 Levophed IVPB 250 mls PRN PRN Administration To maintain MAP > 65 Protocol Titrate Magnesium Sulfate 2 gm/ Device 50 mls @ 50 mls/hr 03/11/20 22:21 03/15/20 04: 31 IVPB 50 mls ASDIR PRN Administration MAGNESIUM < 1.4 Dobutamine HCl/Dextrose 250 mls @ 4.943 mls/hr 03/12/20 00:30 03/13/20 21:08 Dobutamine 500 Mg/250 Ml IVPB 250 mls INF MICHAEL Administration Protocol 2.5 MCG/KG/MIN Amiodarone HCl 450 mg/ 259 mls @ 0 mls/hr 03/13/20 17:00 03/15/20 00:35 Miscellaneous Medication 1 IVPB 259 mls each/ Dextrose/Water INF MICHAEL Administration Protocol As Directed Sodium Chloride 1,000 mls @ 50 mls/hr 03/14/20 11:15 03/14/20 12:00 Normal Saline 0.9% IV 1,000 mls .Q20H MICHAEL Administration Linezolid 600 mg/ Device 300 mls @ 150 mls/hr 03/14/20 21:00 03/14/20 22:08 IVPB 300 mls Q12HR MICHAEL Administration Magnesium Sulfate 2 gm/ Device 50 mls @ 50 mls/hr 03/15/20 06:30 03/15/20 07: 29 IVPB 03/15/20 09:00 Not Given NOW MICHAEL Levothyroxine Sodium 112 mcg 03/13/20 06:00 03/15/20 05:22 Synthroid PO 112 mcg 0600 MICHAEL Administration Morphine Sulfate 2 mg 03/11/20 22:20 03/12/20 09:33 Morphine SLOW IVP 04/10/20 22:20 2 mg Q1H PRN Administration BREAKTHROUGH PAIN/Agitation Propofol 1,000 mg 03/11/20 22:20 03/12/20 19:42 Diprivan IV 04/10/20 22:20 1,000 mg INF PRN Administration TO ACHIEVE GOAL RASS Protocol Saccharomyces Boulardii 250 mg 03/12/20 09:00 03/14/20 09:02 Florastor PO 250 mg DAILY MICHAEL Administration Thiamine HCl 100 mg 03/12/20 09:00 03/14/20 09:02 Thiamine PO 100 mg DAILY MICHAEL Administration - Exam General - other findings: comatose Eye: PERRL Heart: RRR, no murmur, no gallops Respiratory: no wheezes, no rales Respiratory - other findings: diffuse rhonchi Gastrointestinal: soft, non-distended Extremities: 1+ LE edema Neurological - other findings: no corneal or cough reflexes Hosp A/P - Plan #hypoxic respitaroy failure #CAP/ARDS due to complicated VRE UTI-induced sepsis / decompensated HFpEF -GCS 3 s/p cardiac arrest; entire code lasted 7 minutes; CT head unrevealing; may benefit from EEG; defer to neurology -discussed with family prognosis and code status (03/14); palliative team onboard -BCx likely contaminant; UCx VRE, started linezolid, continued levoflox for CAP ; pending ID evaluation -ABx as per ID; ventilation and pressors as per PCCM -match I/O #FABRIZIO (worsening) #decompensated HFpEF -diuresis impoved with metolazone and lasix; nephrology onboard -hypervolemic on exam -continue diuresis as per nephrology #afib w/ RVR -currently sinus -continue amiodarone as per cardiology; digoxin levels high, stopped digoxin per cardiology Disposition/PPx Full code. Discussed condition, treatment, prognosis, goals of care with son and MPOA who will convey to remaining family (03/15) DVT PPx: Lovenox GI PPx: no Ix Poor prognosis; palliative team onboard
[2020-03-15] MEDS ORDERED: Polyethylene Glycol OPTH DROP 15 ML BOT EA EYE PRN (08:41)
[2020-03-15] MEDS: Linezolid 600 MG in Premix Bag 1 BAG IVPB SCH (09:34)
--- NOTE | 2020-03-15 09:58 | PRG ---
DATE OF SERVICE: 03/15/2020 SUBJECTIVE: This morning, she remains still unresponsive. No sedation for several days. Brain CT was negative. She is still on some pressors. Therefore, we are unable to do the MRI which is being ordered. OBJECTIVE: VITAL SIGNS: Blood pressure is , pulse is 56, respirations 20, saturations 100%. CHEST: Bilateral rhonchi. CARDIAC: Normal S1 and S2. No gallops. ABDOMEN: No masses. LABORATORY DATA: White count is not done, but the bilirubin is 2.9. She has slightly more jaundice. AST is 50, creatinine 3, BUN 46. IMAGING STUDIES: X-ray still shows diffuse pulmonary infiltrates, ARDS. IMPRESSION: Respiratory failure, anoxic injury, jaundiced, unknown liver problem or renal failure, diastolic dysfunction. Overall prognosis without any neurological improvement. Family is to make a decision regarding a DNR status. Otherwise, she is still on Dobutrex and Levophed. She was started on Zyvox for VRE UTI infection. We will follow. One-half hour of critical time. Job ID: [id number]
--- NOTE | 2020-03-15 11:11 | PRG ---
DATE OF SERVICE: 03/15/2020 SERVICE: Nephrology. SUBJECTIVE: A 69-year-old female, seen in followup for acute renal failure. The patient is still unresponsive despite discontinuation of sedative 2 days ago. No new problem. Reportedly, she had a significant bradycardia down to 20s, which improved following epinephrine injection. The patient is currently getting EEG. OBJECTIVE: VITAL SIGNS: Temperature 99.3, pulse 78, respiratory rate 15, SpO2 of 94% on the ventilator, and blood pressure is 92/48. I and O in the last 24 hours showed total intake of 3378 with total output of 1107. GENERAL: Chronically ill-looking female, unresponsive. HEENT: Normocephalic and atraumatic. Oral mucosa is moist. CARDIOVASCULAR: Regular rhythm and rate with normal heart sounds one and two. RESPIRATORY: Ventilator transmitted breath sounds noted. GI: Full, soft, nondistended. Bowel sound is hypoactive. UROGENITAL: Barrett catheter is in place draining some urine. EXTREMITIES: Bilateral pedal edema noted. Distal lower extremities are cold. No erythema appreciated. 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 DIAGNOSTIC DATA: Chemistry today showed sodium 132, potassium 3.7, chloride 99, CO2 of 21, BUN 46, creatinine 3.49, glucose 150, calcium 6.9, phosphorus 4.6, magnesium 1.3, albumin 2.4. ASSESSMENT: 1. Acute renal failure: Most likely acute tubular necrosis related to hemodynamic factors as well as cardiac arrest. There is no evidence of a renal recovery. 2. Volume overload: Due to congestive heart failure and hypoalbuminemia. Chest congestion is improved with diuretics. 3. Presumed anoxic brain injury. 4. Presumed acute on chronic congestive heart failure. 5. Status post cardiac arrest. 6. Paroxysmal tachybrady syndrome. 7. Hypomagnesemia. 8. Hyponatremia: Most likely due to poor solute intake and possible syndrome of inappropriate antidiuretic hormone secretion. 9. Metabolic acidosis: Improved. 10. Presumed septic shock, on antibiotics. 11. Acute respiratory failure requiring intubation. DISCUSSION: Given suspected anoxic brain injury, discussion about hemodialysis is deferred. Overall, prognosis seems poor. Neurology is evaluating the patient for anoxic brain injury with EEG. The patient was deemed unstable enough to go for MRI. We will replete serum magnesium. We will continue diuretic therapy for now. Further treatment to follow depending on hospital course. It looks like the patient's relatives are inclined towards comfort care. Job ID: [id number]
[2020-03-15 11:22] VITALS: BP 91/51
--- NOTE | 2020-03-15 11:28 | PDOC.EVN ---
Event Note - Event Note Event Note: Appreciated nurse's note regarding episode of bradycardia at 7:28. Was not notified at the time and discussed with nurse after reading note that cause is likely pharyngeal agitation after cough reflex was examined resulting in parasympathetic activation. Per nurse, received epinephrine and HR promptly increased to 70s. Unless bradycardia recurs spontaneously, should not affect rover tender management. Defer to Cardiology
--- NOTE | 2020-03-15 12:02 | RAD ---
PORTABLE CHEST: HISTORY: Followup pneumonia. FINDINGS: Endotracheal and NG tubes remain in satisfactory position. Parenchymal lung changes are stable. IMPRESSION: Stable exam. POS: [facility]
--- NOTE | 2020-03-15 12:12 | PRG ---
DATE OF SERVICE: 03/14/2020 SUBJECTIVE: Ms. Mccormick is in C6 on the unit, mechanically ventilated. No response despite discontinuation of sedatives. OBJECTIVE: VITAL SIGNS: T-max 99.2 to 99.3, blood pressure 103/46, respiratory rate 18, O2 saturations are 96%, and heart rate is 85, FiO2 is at 60 and the ET tube in place. LUNGS: Symmetric lung sounds. HEART: S1 and S2. There is a 2/6 systolic murmur. ABDOMEN: Soft, not distended. Barrett catheter. Urine output was 585, last 24 hours. She has been positive 2200 and thus far, 378 positive. LABORATORY DATA: Microbiology, urine Barrett catheter with VRE and Zoey albicans. The previous urine cultures from about 2 to 3 weeks ago were with Klebsiella pneumoniae and Enterococcus faecalis. White cell count is 28,000, hemoglobin 8.1, and platelets are 143 with 30% bands. Chest x-ray with bilateral infiltrates and blood cultures with coagulase-negative Staph in one set, likely contaminant and the other set, no growth at 48 hours. ASSESSMENT AND DISCUSSION: Alcoholism, chronic liver disease, possible cirrhosis, diastolic dysfunction, congestive heart failure, hypothyroidism, erratic intake with replacement, malnutrition; acute renal failure, presumably due to hemodynamic factors; acute respiratory failure with bilateral pulmonary infiltrates, either pneumonia or edema or both; and then this organism isolated from urine sample. The urinalysis had 4 to 6 wbc's. The patient again with multifactorial causes of her respiratory failure, of which edema is probably the biggest component. She may have some other insult, for example, she may have developed ischemic bowel. I do not believe that the urinary findings are responsible for her clinical decompensation. They are probably just a bystander phenomenon. I do not think treating it will change the final outcome. Job ID: [id number]
--- NOTE | 2020-03-15 13:09 | PDOC.HOSPP ---
- Subjective Encounter Date: 03/15/20 Subjective: NEUROLOGY PROGRESS NOTE No acute events overnight. Patient continues to have absent brain stem reflexes and long tract signs except sluggishly responsive pupils. - Objective Vital Signs & Weight: Vital Signs (12 hours) Pulse Resp BP Pulse Ox 03/15/20 12:00 14 03/15/20 11:21 72 91/51 L 03/15/20 10:00 14 03/15/20 07:46 14 90 L 03/15/20 07:24 34 L 95/49 L 03/15/20 06:00 17 03/15/20 04:00 17 03/15/20 02:19 75 100/54 L 03/15/20 02:00 14 Weight Admit Weight 146 lb Weight 150 lb 12.739 oz Most Recent Monitor Data Heart Rate from ECG 68 NIBP 97/47 NIBP BP-Mean 63 Respiration from ECG 23 SpO2 92 I&O: 03/14/20 03/15/20 03/16/20 06:59 06:59 06:59 Intake Total 2791.8 3378.3 Output Total 585 1107 235 Balance 2206.8 2271.3 -235 Result Diagrams: 03/14/20 03:50 03/15/20 07:26 Radiology Reviewed by me: Yes EKG Reviewed by me: Yes Hospitalist ROS - Review of Systems ROS unobtainable: due to mental status - Medication Medications: Active Medications Generic Name Dose Route Start Last Admin Trade Name Freq PRN Reason Stop Dose Admin Aspirin 81 mg 03/12/20 09:00 03/14/20 09:00 Ecotrin PO 81 mg DAILY MICHAEL Administration Carvedilol 3.125 mg 03/14/20 17:00 03/14/20 17:27 Coreg PO 3.125 mg BID- MICHAEL Administration Cyanocobalamin 1,000 mcg 03/12/20 09:00 03/14/20 09:00 Vitamin B-12 PO 1,000 mcg DAILY MICHAEL Administration Enoxaparin Sodium 30 mg 03/12/20 09:00 03/14/20 09:00 Lovenox SC 30 mg 0900 MICHAEL Administration Folic Acid 1 mg 03/12/20 09:00 03/14/20 09:01 Folvite PO 1 mg DAILY MICHAEL Administration Furosemide 40 mg 03/13/20 14:00 03/15/20 05:22 Lasix SLOW IVP 40 mg Q8H MICHAEL Administration Norepinephrine Bitartrate 250 mls @ 0 mls/hr 03/11/20 22:15 03/14/20 22:18 Levophed IVPB 250 mls PRN PRN Administration To maintain MAP > 65 Protocol Titrate Magnesium Sulfate 2 gm/ Device 50 mls @ 50 mls/hr 03/11/20 22:21 03/15/20 04: 31 IVPB 50 mls ASDIR PRN Administration MAGNESIUM < 1.4 Dobutamine HCl/Dextrose 250 mls @ 4.943 mls/hr 03/12/20 00:30 03/13/20 21:08 Dobutamine 500 Mg/250 Ml IVPB 250 mls INF MICHAEL Administration Protocol 2.5 MCG/KG/MIN Amiodarone HCl 450 mg/ 259 mls @ 0 mls/hr 03/13/20 17:00 03/15/20 00:35 Miscellaneous Medication 1 IVPB 259 mls each/ Dextrose/Water INF MICHAEL Administration Protocol As Directed Sodium Chloride 1,000 mls @ 50 mls/hr 03/14/20 11:15 03/14/20 12:00 Normal Saline 0.9% IV 1,000 mls .Q20H MICHAEL Administration Linezolid 600 mg/ Device 300 mls @ 150 mls/hr 03/14/20 21:00 03/15/20 09:34 IVPB 300 mls Q12HR MICHAEL Administration Levothyroxine Sodium 112 mcg 03/13/20 06:00 03/15/20 05:22 Synthroid PO 112 mcg 0600 MICHAEL Administration Morphine Sulfate 2 mg 03/11/20 22:20 03/12/20 09:33 Morphine SLOW IVP 04/10/20 22:20 2 mg Q1H PRN Administration BREAKTHROUGH PAIN/Agitation Propofol 1,000 mg 03/11/20 22:20 03/12/20 19:42 Diprivan IV 04/10/20 22:20 1,000 mg INF PRN Administration TO ACHIEVE GOAL RASS Protocol Saccharomyces Boulardii 250 mg 03/12/20 09:00 03/14/20 09:02 Florastor PO 250 mg DAILY MICHAEL Administration Thiamine HCl 100 mg 03/12/20 09:00 03/14/20 09:02 Thiamine PO 100 mg DAILY MICHAEL Administration - Exam General Appearance: ill appearing Eye: PERRL ENT: normocephalic atraumatic Neck: supple Heart: RRR Respiratory: CTAB Gastrointestinal: soft Neurological: no new deficit Neurological - other findings: No cough, gag, corneals , areflexia, no withdrawal or spontaneous movements Psychiatric: not oriented Hosp A/P (1) Cardiac arrest Code(s): I46.9 - CARDIAC ARREST, CAUSE UNSPECIFIED Status: Acute (2) Persistent vegetative state Code(s): R40.3 - PERSISTENT VEGETATIVE STATE Status: Acute (3) Anoxic brain injury Status: Acute - Plan plan discussed w/ family 69 year old consulted for altered mental status s/p cardiac arrest off sedation for at least 2 days. Patient continues to have absent brain stem reflexes and long tract signs except sluggishly responsive pupils. HCT did not reveal acute intracranial process. EEG consistent wioth moderate to severe cerebral dysfunction. Most likely anoxic brain injury leading to persistent vegetative state. Long discussion with family members. Chances of functional meaningful recovery seems poor based on current data. Continue supportive measures and medical management per primary team.
[2020-03-15] MEDS ORDERED: Hyoscyamine Sulfate SL 0.125 mg Tablet PO PRN (13:10)
[2020-03-15 13:22] VITALS: BMI 24.3
--- NOTE | 2020-03-15 13:31 | PDOC.PALCO ---
Palliative Care Consult - Consult Details Requesting Physician: Cuong Reason for Consult: goals of care, advance directives assistance, family support Family Members Present: Patient 4 children - Pertinent HPI 69 year old female who was recently discharged from the hospital, sent to rehab and from there back to her assisted living facility. She presented back to the hospital for progressing weakness and discharged back to rehab February 26. At rehab she experienced worsening renal function and was eventually transferred to the emergency room 03/11. Hypertensive, febrile, and short of breath. Suspected CHF exacerbation with bilateral infiltrates. Admitted from emergency room to [facility] with continued decline during the hospital course initially requiring Bipap for respiratory support and eventually required intubation and pressure support. Code Blue, patient is now absent of brain stem reflexes and requiring continued mechanical ventilation. - Pertinent PMH CHF, HTN, COPD, Hypothyroid, - Social History Smoking Status: Never smoker Smoking: no tobacco exposure Alcohol Use: other (History of heavy alcohol use, recently abstinate ) Drug Use History: none Living Situation: residential resident - Medications MAR Reviewed: Yes - Allergies Allergies/Adverse Reactions: Allergies Allergy/AdvReac Type Severity Reaction Status Date / Time No Known Allergies Allergy Verified 03/11/20 17:45 - Subjective Mechanical intubation, 4 children at bedside. - ROS Non Response: due to endotracheal tube, due to mental status - Objective Vital Signs: Vital Signs - Most Recent Temp Pulse Resp BP Pulse Ox 99.3 F 72 14 91/51 L 90 L 03/14/20 08:00 03/15/20 11:21 03/15/20 12:00 03/15/20 11:21 03/15/20 07:46 Palliative Performance Scale: 10 - Physical Exam Constitutional: ill appearing HEENT: moist MMs Deviation from normal: Sluggish pupils Deviation from normal: mechanical ventilation Deviation from normal: Bradycardia Gastrointestinal: soft, non-tender Genitourinary: horner catheter Musculoskeletal: diffuse muscle atrophy Deviation from normal: no response to gentle stimli Skin: cap refill <2 seconds Deviation from normal: not responsive - Problem List (1) Palliative care encounter Code(s): Z51.5 - ENCOUNTER FOR PALLIATIVE CARE Status: Acute (2) Respiratory failure requiring intubation Code(s): J96.90 - RESPIRATORY FAILURE, UNSP, UNSP W HYPOXIA OR HYPERCAPNIA Status: Acute (3) Anoxic brain injury Status: Acute (4) Persistent vegetative state Code(s): R40.3 - PERSISTENT VEGETATIVE STATE Status: Acute (5) Physical deconditioning Code(s): R53.81 - OTHER MALAISE Status: Acute - Plan/Recommendations Plan: Palliative Care has met with Ms Peña 4 children. They have elected to transition her to DNAR and electing to compassionately extubate her secondary to no meaningful recovery. Scopolamine and Levsin added to to mitigate bronchial secretions with extubation Morphine/Ativan Please also refer to Lico Etienne RNmachine candle molder notes in note section Spiritual care involved, Father Brain to be at bedside for compassionate extubation Emotional support and therapeutic listening. Communicated all care with Dr Hutchins [50] minutes spent on this encounter with >50% of the time in counseling and coordination of care. Thank you for this very appropriate consult.
[2020-03-15] MEDS: Sodium Chloride 0.9% 1,000 ML IV SCH (13:53)
[2020-03-15] MEDS: Carvedilol 3.125 MG TAB PO SCH (13:54)
[2020-03-15] MEDS ORDERED: Scopolamine 1.5 mg/72 hour Patch TD SCH (14:00)
[2020-03-15] MEDS: Aspirin 81 mg Enteric Coated Tablet PO SCH (14:36)
[2020-03-15] MEDS: Saccharomyces boulardii 250 MG CAP PO SCH (14:37)
[2020-03-15] MEDS: Thiamine 100 MG TAB PO SCH (14:37)
[2020-03-15] MEDS: Folic Acid 1 MG TAB PO SCH (14:37)
[2020-03-15] MEDS: Cyanocobalamin (Vitamin B-12) 1,000 MCG TAB PO SCH (14:37)
[2020-03-15] MEDS: Enoxaparin Sodium 30 MG/0.3 ML SYRINGE SC SCH (14:37)
--- NOTE | 2020-03-15 15:56 | EEG ---
Referring Physician: Bebe NICHOLS EEG # [id number] TEST TYPE: EXTENDED CONTINUOUS VIDEO EEG RECORDING REPORT: This EEG was performed using 24 channel [employer] video digital EEG machine with 24 disc electrodes. This was an extended 2 hour 12 minutes of EEG recording. Digital analysis of the EEG was done for spike and seizure detection which revealed no abnormalities. BACKGROUND: The posterior background rhythm was not observed. HYPERVENTILATION: Not performed. PHOTIC STIMULATION: No response seen with photic stimulation. SLEEP: No stage change was observed. EEG DIAGNOSIS: 1.) Generalized irregular delta activity intermixed with brief periods of generalized attenuation. 2.) Absence of posterior background rhythm. CLINICAL INTERPRETATION: THIS EEG IS CONSISTENT WITH SEVERE GENERALIZED NONSPECIFIC CEREBRAL DYSFUNCTION. NO ICTAL OR INTERICTAL EPILEPTIFORM ABNORMALITIES ARE SEEN DURING THE RECORDING. Data Analyst: [employer] Consultant: [email or web address] LUQUE
--- NOTE | 2020-03-16 16:55 | DIS ---
DATE OF ADMISSION: 03/11/2020 DATE OF DISCHARGE: 03/15/2020 DATE OF EXPIRATION: March 15. HOSPITAL COURSE: Ms. Mccormick was a 69-year-old female with a medical history of recurrent UTIs, presented with shortness of breath. She was diagnosed with ARDS due to complicated UTI with VRE. She required intubation and on the 3rd day of admission, had cardiac arrest. After her arrest, the patient remained comatose with a [place] coma Scale of 3. Discussion with the family regarding goals of care resulted in terminal extubation of the patient. The patient on March 15 at 2:11 p.m. Job ID: [id number]
== END 2020-03-15 15:58 | disposition expired | DRG 871 ==
LOC: ERS 14:02 → IMCU/EMU 15:31 → CCU 22:10
PROVIDERS: ADMIT Internal Medicine; ATTEND Internal Medicine
PROC: 8E0ZXY6 Isolation (ICD-10-PCS; principal; 2020-03-11)
PROC: 02HV33Z Insertion of Infusion Device into Superior Vena Cava, Percutaneous Approach (ICD-10-PCS; 2020-03-12)
PROC: 5A12012 Performance of Cardiac Output, Single, Manual (ICD-10-PCS; 2020-03-12)
PROC: 3E033XZ Introduction of Vasopressor into Peripheral Vein, Percutaneous Approach (ICD-10-PCS; 2020-03-12)
DX: A41.9 Sepsis, unspecified organism (principal); U07.1 COVID-19; J96.01 Acute respiratory failure with hypoxia; J12.89 Other viral pneumonia; I50.33 Acute on chronic diastolic (congestive) heart failure; G93.41 Metabolic encephalopathy; N17.0 Acute kidney failure with tubular necrosis; R65.21 Severe sepsis with septic shock; E87.2 Acidosis; N39.0 Urinary tract infection, site not specified; E46 Unspecified protein-calorie malnutrition; I47.1 Supraventricular tachycardia; I13.0 Hypertensive heart and chronic kidney disease with heart failure and stage 1 through stage 4 chronic kidney disease, or unspecified chronic kidney disease; G93.1 Anoxic brain damage, not elsewhere classified; E87.1 Hypo-osmolality and hyponatremia; Z20.828 Contact with and (suspected) exposure to other viral communicable diseases; Z66 Do not resuscitate; Z51.5 Encounter for palliative care; E87.8 Other disorders of electrolyte and fluid balance, not elsewhere classified; F32.9 Major depressive disorder, single episode, unspecified; I46.9 Cardiac arrest, cause unspecified; D63.1 Anemia in chronic kidney disease; J44.9 Chronic obstructive pulmonary disease, unspecified; M81.0 Age-related osteoporosis without current pathological fracture; F10.20 Alcohol dependence, uncomplicated; N18.3 Chronic kidney disease, stage 3 (moderate); E78.5 Hyperlipidemia, unspecified; R53.81 Other malaise; E03.9 Hypothyroidism, unspecified; E83.42 Hypomagnesemia; K21.9 Gastro-esophageal reflux disease without esophagitis; I48.0 Paroxysmal atrial fibrillation; Z96.612 Presence of left artificial shoulder joint; Z96.641 Presence of right artificial hip joint; Z96.651 Presence of right artificial knee joint; Z87.440 Personal history of urinary (tract) infections; Z90.710 Acquired absence of both cervix and uterus; Z79.01 Long term (current) use of anticoagulants; Z68.24 Body mass index [BMI] 24.0-24.9, adult
CPT/HCPCS: 36415; 51702; 70450; 71045; 80048; 80076; 80162; 81003; 81015; 82553; 82570; 82728; 82805; 83605; 83615; 83735; 83880; 84100; 84145; 84156; 84300; 84436; 84439; 84443; 84481; 84484; 84540; 85025; 85379; 85610; 85730; 86140; 87040; 87077; 87086; 87149; 87186; 87635; 87804; 92950; 93005; 93010; 93306; 94002; 94003; 94660; 95712; 95816; 95819; 95957; 96365; 96366; 96368; 96375; 99292; J0171; J0282; J0692; J1160; J1250; J1650; J1940; J1956; J2020; J2270; J2543; J2704; J3370; J3475; J3490; J7030; J7070; S0028; U0003